=== PATIENT | male | born 1945 | race Caucasian/White ===

== ENCOUNTER 2016-10-11 15:16 | Observation (INO) | payer OTHER, BC ==
--- NOTE | 2016-10-11 15:24 | PDOC ---
History of Present Illness - General History Source: Patient Exam Limitations: No Limitations <Darinel Isaac - Last Filed: 10/11/16 19:29> - General History Source: Patient Exam Limitations: No Limitations <Levi Packer - Last Filed: 10/12/16 09:28> - General Chief Complaint: Chest Pain Stated Complaint: CHEST PAIN Time Seen by Provider: 10/11/16 15:24 - History of Present Illness Initial Comments: 10/11/16 19:29 The patient is a 71-year-old male, with a significant past medical history of asthma, HTN, HLD, diabetes, lung ca (left side lobectomy), CAD s/p 7 stents, CABG, 2 MIs, afib, and overactive bladder disease, who presents to the ED via EMS with chest tightness radiating up the throat to the teeth that began after eating lunch today. Patient states he had SOB, nausea, and belching secondary to the chest tightness. He had a few sl nitro at home without improvement, and called EMS, had recieved nitro by ems, with reslution of his sypmtmos. and was given 4 baby aspirin by EMS which helped reduce his symptoms. He states he had had similar symptoms in the past in [place] that led to a stress test and catherization. He denies any fever, chills, vomiting, diarrhea, or diaphoresis. He denies dysuria, frequency, urgency. no recent exertional cp. has dyspnea on exertion but seems baseline. Patient has a 40 year smoking history. PCP: Dr. Bronson Yung Mold Repairer: Dr. Lynn Oncologist: Dr. Cortes (Darinel Isaac) Past History <Darinel Isaac - Last Filed: 10/11/16 19:29> - Past Medical History Anemia: No Asthma: Yes Cancer: Yes (lung ca) Cardiac Disorders: Yes (afib) CVA: Yes (probable TIAs) COPD: Yes CHF: No Dementia: No Diabetes: Yes GI Disorders: No Disorders: Yes (1 kidney, kidney stones 2007) HTN: Yes Hypercholesterolemia: Yes Liver Disease: No Seizures: Yes Thyroid Disease: No - Surgical History Abdominal Surgery: No Appendectomy: No Cardiac Surgery: Yes (CABG stent x 4 2008) Cholecystectomy: No Lung Surgery: Yes (lt lower lobe) Neurologic Surgery: No Orthopedic Surgery: No - Immunization History Td Vaccination: No TDAP Vaccination: No Immunization Up to Date: Yes - Psycho/Social/Smoking Cessation Hx Anxiety: No Suicidal Ideation: No Smoking Status: Yes Smoking History: Former smoker Have you smoked in the past 12 months: No Number of Cigarettes Smoked Daily: 0 If you are a former smoker, when did you quit?: 40 YEARS AGO Hx Alcohol Use: No Drug/Substance Use Hx: No Substance Use Type: None Hx Substance Use Treatment: No <Levi Packer - Last Filed: 10/12/16 09:28> - Past Medical History Allergies/Adverse Reactions: Allergies Allergy/AdvReac Type Severity Reaction Status Date / Time sulfite Allergy Severe Difficulty Verified 03/26/16 02:07 Breathing Penicillins Allergy Intermediate Swelling Verified 03/26/16 02:07 mandarin orange Allergy Uncoded 03/26/16 02:07 Home Medications: Ambulatory Orders Fenofibrate [Fenofibrate -] 145 mg PO DAILY 10/14/13 Aspirin [ASA -] 81 mg PO DAILY #14 tab.chew 02/10/14 Multivitamins [Multivit ([facility])] 1 tab PO DAILY 11/24/14 Oxybutynin Chloride [Ditropan Xl] 10 mg PO DAILY 02/09/16 Allopurinol [Zyloprim -] 100 mg PO BID #60 tablet 02/17/16 Atorvastatin Ca [Lipitor] 40 mg PO HS #30 tablet 02/17/16 Mirtazapine [Remeron -] 30 mg PO HS #30 tablet 02/17/16 Phenytoin Na Extended [Dilantin -] 100 mg PO BID #60 capsule 02/17/16 Ramipril [Altace] 2.5 mg PO DAILY #30 capsule 02/17/16 Tamsulosin HCl [Flomax -] 0.4 mg PO DAILY #30 cap.er.24h 02/17/16 Insulin Detemir [Levemir Flextouch] 5 unit SQ BID PRN 03/26/16 Metformin HCl 500 mg PO BID 03/26/16 Metoclopramide HCl 5 mg PO DAILY PRN 03/26/16 [place]-3 Fatty Acids [Fish Oil] 1,200 mg PO DAILY 03/26/16 Pregabalin [Lyrica] 50 mg PO HS PRN 03/26/16 Sotalol HCl [Betapace -] 40 mg PO BID 03/26/16 Warfarin Na [Coumadin] 3 mg PO HS 03/26/16 Glipizide [Glucotrol -] 5 mg PO BID 10/11/16 Cardiac Specific PMH - Complaint Specific PMHX Pacemaker: No <Levi Packer - Last Filed: 10/12/16 09:28> Review of Systems - Review of Systems Able to Perform ROS?: Yes <Darinel Isaac - Last Filed: 10/11/16 19:29> <Levi Packer - Last Filed: 10/12/16 09:28> - Review of Systems Comments:: 10/11/16 19:30 CONSTITUTIONAL: No reported: Fever, Chills, Diaphoresis, Generalized Weakness, Malaise, Loss of Appetite HEENT: No reported: Rhinorrhea, Nasal Congestion, Throat Pain, Throat Swelling, Difficulty Swallowing, Mouth Swelling, Ear Pain, Eye Pain, Visual Changes CARDIOVASCULAR: + chest tightness radiating up the throat to the teeth. No reported: Syncope, Palpitations, Irregular Heart Rate, Lightheadedness, Peripheral Edema RESPIRATORY: No reported: Cough, Shortness of Breath, SOB with Exertion, Orthopnea, Wheezing , Stridor, Hemoptysis GASTROINTESTINAL: + nausea. No reported: Abdominal pain, Abdominal Distension, Vomiting, Diarrhea , Constipation, Melena, Hematochezia GENITOURINARY: No reported: Dysuria, Frequency, Urgency, Hesitancy, Flank Pain, Genital Pain MUSCULOSKELETAL: No reported: Myalgia, Arthralgia, Joint Swelling, Back pain, Neck Pain SKIN: No reported: Rash, Itching, Pallor HEMEATOLOGIC/IMMUNOLOGIC: No reported: Easy Bleeding, Easy Bruising, Lymphadenopathy, Frequent infections ENDOCRINE: No reported: Unexplained Weight Gain, Unexplained Weight Loss, Heat Intolerance , Cold Intolerance NEUROLOGIC: No reported: Headache, Focal Weakness, Paresthesias, Vertigo, Lightheadedness, Unsteady Gait, Seizure, Mental Status Changes, Incontinence PSYCHIATRIC: No reported: Anxiety, Depression (Darinel Isaac) *Physical Exam <Darinel Isaac - Last Filed: 10/11/16 19:29> <Levi Packer - Last Filed: 10/12/16 09:28> - Vital Signs Last Vital Signs Temp Pulse Resp BP Pulse Ox 97.4 F L 57 L 18 127/67 97 10/12/16 05:31 10/12/16 05:31 10/12/16 05:31 10/12/16 05:31 10/11/16 22:00 - Physical Exam Comments: 10/11/16 19:30 GENERAL: The patient is awake, alert, and fully oriented, Nontoxic - in no acute distress. HEAD: Normocephalic, atraumatic. EYES: extraocular movements intact, sclera anicteric, conjunctiva clear. ENT: Normal voice, Moist mucous membranes. NECK: Normal range of motion, supple LUNGS: Breath sounds equal, clear to auscultation bilaterally. No wheezes, no rhonchi, no rales. HEART: Regular rate and rhythm, without murmur, rub or gallop. Old CABG scar ABDOMEN: Soft, nontender, normoactive bowel sounds. No guarding, no rebound.No CVA tenderness EXTREMITIES: Normal range of motion, no edema. No clubbing or cyanosis. No cords, erythema, or tenderness. NEUROLOGICAL: No facial asymmetry, Normal speech, PSYCH: Normal mood, normal affect. SKIN: Warm, Dry, normal turgor (Darinel Isaac) Heart Score/ECG Review <Darinel Isaac - Last Filed: 10/11/16 19:29> - History History: Moderately suspicious - Electrocardiogram EKG: Non specific repolarization disturbance - Age Age: >/= 65 - Risk Factors Risk Factors Heart Score: Yes Hx Hypercholesterolemia, Yes Hx Hypertension, Yes Hx Diabetes, Yes Smoking History Based on the list above the patient has:: >/=3 risk factors or Hx atherosclerotic disease - Troponin Troponin: </= normal limit - Score Heart Score - Total: 6 <Levi Packer - Last Filed: 10/12/16 09:28> - ECG Impressions Comment:: 10/11/16 15:38 Twelve-lead EKG was performed and reviewed by me. There is normal sinus rhythm with a normal rate. rate of 61 left axis deviation rbbb twi in anterior leads and inferior leads when compared with ekg dated 03/26/2016, twi in atnerior leads are less prominent (Levi Packer) ED Treatment Course - LABORATORY CBC & Chemistry Diagram: 10/11/16 15:30 10/11/16 15:30 <Darinel Isaac - Last Filed: 10/11/16 19:29> - LABORATORY CBC & Chemistry Diagram: 10/11/16 15:30 10/11/16 15:30 <BirdieJose kilpatrickan - Last Filed: 10/12/16 09:28> - ADDITIONAL ORDERS Additional order review: 10/11/16 15:30 RBC 4.32 MCV 91.5 MCHC 33.4 RDW 14.9 MPV 9.2 D Neutrophils % 68.5 Lymphocytes % 19.6 Monocytes % 9.3 Eosinophils % 1.9 Basophils % 0.7 - RADIOLOGY Radiology Studies Ordered: Category Date Time Status CHEST X-RAY PORTABLE* [RAD] Stat Radiology 10/11/16 15:52 Completed Medical Decision Making <Darinel Isaac - Last Filed: 10/11/16 19:29> <Levi Packer - Last Filed: 10/12/16 09:28> - Medical Decision Making 10/11/16 18:[address] Azul and Dr. Hill at 18:14. 10/11/16 18:[address] Meier. (Darinel Isaac) 10/11/16 15:34 71y hx of significant hx of cad s/p cabg, seizure, hl, htn, dm, afib on coumadin , presents with chest pain - pt states he was doing well until this aftenoon, developed substernal cp that is a tightness raiating up to his throat, associated with sob, nausea, had asa, ntg with improvement of symptoms currently pain free, similar to his previous cp 6 months ago. on exam pt well appearing in no acute distress with an unremarkble exam. concern for acs/unstable angina will obtain trops cxr, labs' pt s/p asa and ntg by ems pt placed on front desk monitor will notify dr. lynn and dr. hill for observation/admission A portion of this note was documented by scribe services under my direction. I have reviewed the details of the note, within reason, and agree with the documentation with the following case summary and management plan written by me 10/11/16 18:12 trops negative will admit to observation for r/o acs case dw dr. hill agreed with tele observation awaiting call back from dr. azul (covering for dr. lynn) Case discussed in detail with admitting physician including history, physical exam and ancillary studies. Admitting physician has assumed care for the patient, will follow all pending diagnostics and will complete the evaluation and treatment. 10/11/16 18:[address] azul will see pt today. agree with management obs for chest pain risk stratigifcaiton (Levi Packer) *DC/Admit/Observation/Transfer <Darinel Isaac - Last Filed: 10/11/16 19:29> - Discharge Dispostion Admit: Yes <Levi Packer - Last Filed: 10/12/16 09:28> Diagnosis at time of Disposition: Chest pain Qualifiers: Chest pain type: unspecified Qualified Code(s): R07.9 - Chest pain, unspecified - Discharge Dispostion Condition at time of disposition: Guarded - Referrals - Patient Instructions - Attestations Scribe Attestion: 10/11/16 18:15 Documentation prepared by Darinel Isaac, acting as medical assembly for Levi Packer MD, . (Darinel Isaac)
[2016-10-11 15:36] LABS: BASOPHIL 0.7 % (0-2.0); EOSINOPHIL 1.9 % (0-4.5); MCH 30.6 pg (25.7-33.7); MCHC 33.4 g/dl (32.0-35.9); MEAN CELL VOLUME 91.5 fl (80-96); MEAN PLT VOLUME 9.2 fl (7.5-11.1); NEUTROPHILS 68.5 % (42.8-82.8); PLATELET COUNT 196 K/MM3 (134-434); RDW 14.9 % (11.9-15.9)
[2016-10-11 15:56] LABS: INR 1.96 (0.82-1.09); PROTHROMBIN TIME (PATIENT) 21.9 SEC (9.98-11.88)
[2016-10-11 16:22] LABS: ALBUMIN 3.7 g/dl (3.4-5.0); ANION GAP 11 (8-16); BILIRUBIN,TOTAL 0.3 mg/dL (0.2-1.0); CALCIUM 8.8 mg/dL (8.5-10.1); CO2 26 mmol/L (21-32); CREATININE 0.9 mg/dL (0.7-1.3); GLUCOSE,RANDOM 183 mg/dL (74-106); MAGNESIUM 1.8 mg/dL (1.8-2.4); SGOT/AST 17 U/L (15-37); SGPT/ALT 25 U/L (12-78)
[2016-10-11 16:25] LABS: ALK PHOS 59 U/L (45-117); TROPONIN I 0.02 ng/ml (0.00-0.05)
[2016-10-11 18:54] VITALS: BMI 31.1
[2016-10-11] MEDS ORDERED: PREGABALIN 50 MG CAPSULE PO PRN (20:38)
[2016-10-11] MEDS ORDERED: ATORVASTATIN CA 40 MG TABLET (FP) PO SCH (22:00)
[2016-10-11] MEDS: PHENYTOIN NA EXTENDED 100 MG CAPSULE (FP) PO SCH (22:37)
[2016-10-11] MEDS: WARFARIN NA 3 MG TABLET PO SCH (22:37)
[2016-10-11] MEDS: ALLOPURINOL 100 MG TABLET (FP) PO SCH (22:37)
[2016-10-11] MEDS: SOTALOL HCL 80 MG TABLET (FP) PO SCH (22:37)
[2016-10-11] MEDS: FENOFIBRIC ACID 135 MG CAP PO SCH (22:38)
[2016-10-11 22:43] LABS: TROPONIN I < 0.02 ng/ml (0.00-0.05)
[2016-10-12] MEDS: glipiZIDE 5 MG TABLET (FP) PO SCH ×2 (06:33→17:26)
--- NOTE | 2016-10-12 07:03 | CON.CARD ---
Consult Consult Specialty:: cardiology Reason for Consultation:: chest pain; hx multiple coronary stents - History of Present Illness Chief Complaint: A&Ox3; sitting up in bed; no chest pain or dyspnea presently. History of Present Illness: The patient is a 71-year-old white male, with a significant past medical history of s/p [place] x 2, CABG, CAD-->7 coronary stents, asthma, HTN, HLD, diabetes , lung ca (left side lobectomy), afib, and overactive bladder disease, who presents to the ED via EMS with chest tightness radiating up the throat and teeth that began after eating lunch today. Patient states he had SOB, nausea, and belching secondary to the chest tightness. He had a few sl nitro at home without improvement, and called EMS, had recieved nitro 4 baby aspirin by EMS which helped reduce his symptoms. He states he had had similar symptoms in the past in [place] that led to a stress test and catheterization. He denies any fever, chills, vomiting, diarrhea, or diaphoresis. He denies dysuria, frequency, urgency. no recent exertional cp. has dyspnea on exertion but seems baseline. He admits to doing very little exercise, though he attended cardiac rehabilitation years ago after CABG. He uses a cane for help with stability. Patient has a 40 year smoking history; quit over 30 yrs ago. PCP: Dr. Bronson Yung Business Services Representative: Dr. Lynn Oncologist: Dr. 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 Cardio/Vascular: Yes: AFIB, CAD, CHF, HTN, [place], Hyperlipdemia Pulmonary: Yes: COPD, Cancer Psych: Yes: Anxiety Musculoskeletal: Yes: Chronic low back pain Rheumatology: Yes: Gout Endocrine: Yes: Diabetes Mellitus - Past Surgical History Past Surgical History: Yes: Stent, CABG Additional Surgical History: left lobectomy (lung CA) - Alcohol/Substance Use Hx Alcohol Use: No - Smoking History Smoking history: Former smoker Have you smoked in the past 12 months: No Aproximately how many cigarettes per day: 0 If you are a former smoker, when did you quit?: 40 YEARS AGO - Social History ADL: Independent History of Recent Travel: No Home Medications - Allergies Allergies/Adverse Reactions: Allergies Allergy/AdvReac Type Severity Reaction Status Date / Time sulfite Allergy Severe Difficulty Verified 03/26/16 02:07 Breathing Penicillins Allergy Intermediate Swelling Verified 03/26/16 02:07 mandarin orange Allergy Uncoded 03/26/16 02:07 - Home Medications Home Medications: Ambulatory Orders Fenofibrate [Fenofibrate -] 145 mg PO DAILY 10/14/13 Aspirin [ASA -] 81 mg PO DAILY #14 tab.chew 02/10/14 Multivitamins [Multivit ([facility] Form[facility])] 1 tab PO DAILY 11/24/14 Oxybutynin Chloride [Ditropan Xl] 10 mg PO DAILY 02/09/16 Allopurinol [Zyloprim -] 100 mg PO BID #60 tablet 02/17/16 Atorvastatin Ca [Lipitor] 40 mg PO HS #30 tablet 02/17/16 Mirtazapine [Remeron -] 30 mg PO HS #30 tablet 02/17/16 Phenytoin Na Extended [Dilantin -] 100 mg PO BID #60 capsule 02/17/16 Ramipril [Altace] 2.5 mg PO DAILY #30 capsule 02/17/16 Tamsulosin HCl [Flomax -] 0.4 mg PO DAILY #30 cap.er.24h 02/17/16 Insulin Detemir [Levemir Flextouch] 5 unit SQ BID PRN 03/26/16 Metformin HCl 500 mg PO BID 03/26/16 Metoclopramide HCl 5 mg PO DAILY PRN 03/26/16 [place]-3 Fatty Acids [Fish Oil] 1,200 mg PO DAILY 03/26/16 Pregabalin [Lyrica] 50 mg PO HS PRN 03/26/16 Sotalol HCl [Betapace -] 40 mg PO BID 03/26/16 Warfarin Na [Coumadin] 3 mg PO HS 03/26/16 Glipizide [Glucotrol -] 5 mg PO BID 10/11/16 Review of Systems - Review of Systems Constitutional: reports: Weakness Eyes: reports: No Symptoms HENT: reports: No Symptoms Neck: reports: No Symptoms Cardiovascular: reports: Chest Pain Respiratory: reports: SOB on Exertion Gastrointestinal: reports: No Symptoms Genitourinary: reports: No Symptoms Breasts: reports: No Symptoms Reported Musculoskeletal: reports: Back Pain, Joint Pain, Muscle Weakness Integumentary: reports: No Symptoms Neurological: reports: Weakness Endocrine: reports: No Symptoms Hematology/Lymphatic: reports: No Symptoms Psychiatric: reports: No Symptoms - Risk Factors Known Risk Factors: Yes: Age, Gender, Hypercholesterolemia, Hypertension, Physical Inactivity, Prior [place] /Emb Stroke, Smoking (former), Other (lung CA) Vital Signs: Vital Signs Temperature 97.4 F L 10/12/16 05:31 Pulse Rate 57 L 10/12/16 05:31 Respiratory Rate 18 10/12/16 05:31 Blood Pressure 127/67 10/12/16 05:31 O2 Sat by Pulse Oximetry (%) 97 10/11/16 22:00 Constitutional: Yes: Well Nourished, Calm Eyes: Yes: WNL HENT: Yes: WNL Neck: Yes: WNL Gastrointestinal: Yes: WNL Renal/: No: Anuria Cardiovascular: Yes: Regular Rate and Rhythm JVD: No Carotid Bruit: No PMI: Non-Displaced Heart Sounds: Yes: S1, S2 Murmur: Yes: Systolic Murmur, Grade 1 Musculoskeletal: Yes: Muscle Weakness Extremities: Yes: WNL Edema: Yes Edema: LLE: Trace, RLE: Trace Peripheral Pulses WNL: Yes Integumentary: Yes: WNL Psychiatric: Yes: WNL - Other Data Labs, Other Data: INR, PTT INR 1.96 (0.82-1.09) H D 10/11/16 15:30 Troponin, BNP 10/11/16 21:50 Troponin I < 0.02 Troponin, BNP 10/11/16 21:50 Troponin I < 0.02 Ejection Fraction %: LVEF > or = 40 % Imaging - Results Chest X-ray: Image Reviewed (elevated Lt hemidiaphragm) Other: Image Reviewed (telemetry: no arrhythmias; NSR) Problem List - Problems (1) Chest pain Assessment/Plan: Pt describes pain as very similar to the "angina" he had in [place] that led to stress test and coronary stents. F/u TNI (1st is < 0.02) and EKGs serially; telemetry. ASA and clopidogrel; also on warfarin for AF (consider stopping [place] 3 capsules because of possible increase in bleeding; pt is already on Trilipex and atorvastatin; f/u lipids). Qualifiers: Chest pain type: unspecified Qualified Code(s): R07.9 - Chest pain, unspecified (2) ASHD (arteriosclerotic heart disease) Code(s): I25.10 - ATHSCL HEART DISEASE OF [place] CORONARY ARTERY W/O ANG PCTRS (3) Afib Assessment/Plan: On sotalol (BUN/Cr 18/0.9). on warfarin; INR 1.96. Code(s): I48.91 - UNSPECIFIED ATRIAL FIBRILLATION Qualifiers: Atrial fibrillation type: chronic Qualified Code(s): I48.2 - Chronic atrial fibrillation (4) Diabetes Assessment/Plan: Consider starting Jardience for potential cardiac benefits. Qualifiers: Diabetes mellitus type: type 2 Diabetes mellitus complication status: without complication (5) Edema Code(s): R60.9 - EDEMA, UNSPECIFIED (6) HTN (hypertension) Code(s): I10 - ESSENTIAL (PRIMARY) HYPERTENSION (7) Hx of CABG Code(s): Z95.1 - PRESENCE OF AORTOCORONARY BYPASS GRAFT (8) Hyperlipidemia Assessment/Plan: on atorvastatin, Trilipex, and [place] 3 (consider d/c of the latter because of increased bleeding tendency; could use Zetia if needed for LDL control; f/u lipids). (9) Joint pain of leg Code(s): M25.50 - PAIN IN UNSPECIFIED JOINT (10) Lung cancer Code(s): C34.90 - MALIGNANT NEOPLASM OF UNSP PART OF UNSP BRONCHUS OR LUNG
[2016-10-12 07:04] LABS: INR 1.97 (0.82-1.09)
--- NOTE | 2016-10-12 07:23 | PN ---
Progress Note, Physician Chief Complaint: Pt denies chest pain (and did not have pain while eating breakfast today). History of Present Illness: The patient is a 71-year-old white male, with a significant past medical history of s/p [place] x 2, CABG, CAD-->7 coronary stents, asthma, HTN, HLD, diabetes , lung ca (left side lobectomy), afib, and overactive bladder disease, who presents to the ED via EMS with chest tightness radiating up the throat and teeth that began after eating lunch today. Patient states he had SOB, nausea, and belching secondary to the chest tightness. He had a few sl nitro at home without improvement, and called EMS, had recieved nitro 4 baby aspirin by EMS which helped reduce his symptoms. He states he had had similar symptoms in the past in [place] that led to a stress test and catheterization. He denies any fever, chills, vomiting, diarrhea, or diaphoresis. He denies dysuria, frequency, urgency. no recent exertional cp. has dyspnea on exertion but seems baseline. He admits to doing very little exercise, though he attended cardiac rehabilitation years ago after CABG. He uses a cane for help with stability. Patient has a 40 year smoking history; quit over 30 yrs ago. PCP: Dr. Bronson Yung Credit Analyst: Dr. Lynn Oncologist: Dr. Cortes - Current Medication List Current Medications: Active Medications Allopurinol (Zyloprim -) 100 mg PO BID [facility] Last Admin: 10/11/16 22:37 Dose: 100 mg Aspirin (Asa -) 81 mg PO DAILY [facility] Atorvastatin Calcium (Lipitor -) 40 mg PO HS [facility] Last Admin: 10/11/16 22:38 Dose: 40 mg Fenofibric Acid (Trilipix -) 135 mg PO DAILY [facility] Last Admin: 10/11/16 22:38 Dose: 135 mg Glipizide (Glucotrol -) 5 mg PO BIDI [facility] Last Admin: 10/12/16 06:33 Dose: 5 mg Non-Formulary Medication ([place]-3 Fatty Acids [Fish Oil]) 1,200 mg PO DAILY [facility] Phenytoin Sodium (Dilantin -) 100 mg PO BID [facility] Last Admin: 10/11/16 22:37 Dose: 100 mg Pregabalin (Lyrica -) 50 mg PO HS PRN PRN Reason: PAIN Last Admin: 10/11/16 22:36 Dose: 50 mg Ramipril (Altace -) 2.5 mg PO DAILY [facility] Solifenacin (Vesicare -) 5 mg PO DAILY [facility] Sotalol HCl (Betapace -) 40 mg PO BID [facility] Last Admin: 10/11/16 22:37 Dose: 40 mg Tamsulosin HCl (Flomax -) 0.4 mg PO DAILY [facility] Warfarin Sodium (Coumadin -) 3 mg PO DAILY@1800 [facility] Last Admin: 10/11/16 22:37 Dose: 3 mg - Objective Vital Signs: Vital Signs Temperature 97.4 F L 10/12/16 05:31 Pulse Rate 57 L 10/12/16 05:31 Respiratory Rate 18 10/12/16 05:31 Blood Pressure 127/67 10/12/16 05:31 O2 Sat by Pulse Oximetry (%) 97 10/11/16 22:00 Constitutional: Yes: Calm Eyes: Yes: WNL HENT: Yes: WNL Neck: Yes: WNL Cardiovascular: Yes: WNL Respiratory: Yes: WNL Gastrointestinal: Yes: Soft, Abdomen, Obese ...Rectal Exam: Yes: Deferred Genitourinary: No: Anuria Breast(s): Yes: WNL Musculoskeletal: Yes: Muscle Weakness Extremities: Yes: Cool Edema: Yes Peripheral Pulses WNL: Yes Integumentary: Yes: Other (left LE scar from CABG vein graft harvest) Neurological: Yes: WNL Psychiatric: Yes: WNL Labs: INR, PTT INR 1.96 (0.82-1.09) H D 10/11/16 15:30 Abnormal Lab Results 10/11/16 10/11/16 10/12/16 15:30 15:30 06:00 INR 1.96 H D 1.97 H Random Glucose 183 H D Triglycerides Total LDL Cholesterol 10/12/16 06:00 INR Random Glucose Triglycerides 176 H Total LDL Cholesterol 104 H - ....Imaging Chest X-ray: Image Reviewed (no acute pathology) EKG: Image Reviewed (NSR; 1st degreee AVB; RBBB) Problem List - Problems (1) Chest pain Assessment/Plan: NO further chest pain (atypical presentation). TNI < 0.02 x 3. ASA and clopidogrel; also on warfarin for AF (consider stopping [place] 3 capsules because of possible increase in bleeding; pt is already on Trilipex and atorvastatin; f/u lipids). Increased atorvastatin from 40 to 80 mg daily (LDL cholesterol 104 mg/dL). Triglycerides 176 (on trilipix); f/u after increase in atorvastatin. Qualifiers: Chest pain type: unspecified Qualified Code(s): R07.9 - Chest pain, unspecified (2) ASHD (arteriosclerotic heart disease) Code(s): I25.10 - ATHSCL HEART DISEASE OF [place] CORONARY ARTERY W/O ANG PCTRS (3) Afib Assessment/Plan: On sotalol (BUN/Cr 18/0.9). on warfarin; INR 1.96. Code(s): I48.91 - UNSPECIFIED ATRIAL FIBRILLATION Qualifiers: Atrial fibrillation type: chronic Qualified Code(s): I48.2 - Chronic atrial fibrillation (4) Diabetes Assessment/Plan: Consider starting Jardience for potential cardiac benefits. Qualifiers: Diabetes mellitus type: type 2 Diabetes mellitus complication status: without complication (5) Edema Code(s): R60.9 - EDEMA, UNSPECIFIED (6) HTN (hypertension) Code(s): I10 - ESSENTIAL (PRIMARY) HYPERTENSION (7) Hx of CABG Code(s): Z95.1 - PRESENCE OF AORTOCORONARY BYPASS GRAFT (8) Hyperlipidemia Assessment/Plan: on atorvastatin, Trilipex, and [place] 3 (consider d/c of the latter because of increased bleeding tendency; could use Zetia if needed for LDL control; f/u lipids). Atorvastatin dose increased. (9) Joint pain of leg Code(s): M25.50 - PAIN IN UNSPECIFIED JOINT (10) Lung cancer Assessment/Plan: f/u with pulmonary, oncology. Code(s): C34.90 - MALIGNANT NEOPLASM OF UNSP PART OF UNSP BRONCHUS OR LUNG
[2016-10-12 08:18] LABS: TROPONIN I < 0.02 ng/ml (0.00-0.05)
[2016-10-12] MEDS ORDERED: PT OWN MED DRAWER 7, Y5N ONE (08:52)
[2016-10-12 08:56] LABS: CHOLESTEROL 172 mg/dL (50-200); LDL CHOLESTEROL (ONLY SJRH) 104 mg/dL (5-100); THYROID STIMULATING HORMONE 3.16 uIU/ml (0.358-3.74)
[2016-10-12] MEDS: SOTALOL HCL 80 MG TABLET (FP) PO SCH ×2 (09:10→21:28)
[2016-10-12] MEDS: FENOFIBRIC ACID 135 MG CAP PO SCH (09:11)
[2016-10-12] MEDS: RAMIPRIL 2.5 MG CAPSULE (FP) PO SCH (09:11)
[2016-10-12] MEDS: SOLIFENACIN SUCCINATE 5 MG TAB (FP) PO SCH (09:11)
[2016-10-12] MEDS: TAMSULOSIN HCL 0.4 MG CAP.ER.24H (FP) PO SCH (09:12)
[2016-10-12] MEDS: ALLOPURINOL 100 MG TABLET (FP) PO SCH ×2 (09:12→21:23)
[2016-10-12] MEDS: ASPIRIN 81 MG CHEWABLE TABLETS PO SCH (09:12)
[2016-10-12] MEDS: PHENYTOIN NA EXTENDED 100 MG CAPSULE (FP) PO SCH ×2 (09:12→21:23)
[2016-10-12] MEDS ORDERED: OMEGA PO SCH (10:00)
[2016-10-12] MEDS ORDERED: FATTY ACIDS PO SCH (10:00)
[2016-10-12] MEDS: ATORVASTATIN CA 80 MG TABLET (FP) PO SCH (14:18)
[2016-10-12] MEDS: WARFARIN NA 3 MG TABLET PO SCH (17:26)
--- NOTE | 2016-10-12 19:08 | HP ---
Admitting History and Physical - Past Medical History HIDE TRIMMER: Yes: Seizure Cardiovascular: Yes: AFIB, CAD, CHF, HTN, PR, Hyperlipdemia Pulmonary: Yes: COPD, Cancer Psych: Yes: Anxiety Musculoskeletal: Yes: Chronic low back pain Rheumatology: Yes: Gout Endocrine: Yes: Diabetes Mellitus - Past Surgical History Past Surgical History: Yes: Stent, CABG - Advance Directives Advance Directives: Yes: Health Care Proxy - Smoking History Smoking history: Former smoker Have you smoked in the past 12 months: No Aproximately how many cigarettes per day: 0 If you are a former smoker, when did you quit?: 40 YEARS AGO - Alcohol/Substance Use Hx Alcohol Use: No - Social History ADL: Independent History of Recent Travel: No Home Medications - Allergies Allergies/Adverse Reactions: Allergies Allergy/AdvReac Type Severity Reaction Status Date / Time sulfite Allergy Severe Difficulty Verified 03/26/16 02:07 Breathing Penicillins Allergy Intermediate Swelling Verified 03/26/16 02:07 mandarin orange Allergy Uncoded 03/26/16 02:07 - Home Medications Home Medications: Ambulatory Orders Fenofibrate [Fenofibrate -] 145 mg PO DAILY 10/14/13 Aspirin [ASA -] 81 mg PO DAILY #14 tab.chew 02/10/14 Multivitamins [Multivit ([facility] Form[facility])] 1 tab PO DAILY 11/24/14 Oxybutynin Chloride [Ditropan Xl] 10 mg PO DAILY 02/09/16 Allopurinol [Zyloprim -] 100 mg PO BID #60 tablet 02/17/16 Atorvastatin Ca [Lipitor] 40 mg PO HS #30 tablet 02/17/16 Mirtazapine [Remeron -] 30 mg PO HS #30 tablet 02/17/16 Phenytoin Na Extended [Dilantin -] 100 mg PO BID #60 capsule 02/17/16 Ramipril [Altace] 2.5 mg PO DAILY #30 capsule 02/17/16 Tamsulosin HCl [Flomax -] 0.4 mg PO DAILY #30 cap.er.24h 02/17/16 Insulin Detemir [Levemir Flextouch] 5 unit SQ BID PRN 03/26/16 Metformin HCl 500 mg PO BID 03/26/16 Metoclopramide HCl 5 mg PO DAILY PRN 03/26/16 [place]-3 Fatty Acids [Fish Oil] 1,200 mg PO DAILY 03/26/16 Pregabalin [Lyrica] 50 mg PO HS PRN 03/26/16 Sotalol HCl [Betapace -] 40 mg PO BID 03/26/16 Warfarin Na [Coumadin -] 3 mg PO HS 03/26/16 Glipizide [Glucotrol -] 5 mg PO BID 10/11/16 Physical Examination Vital Signs: Vital Signs Temperature 98.8 F 10/12/16 17:00 Pulse Rate 56 L 10/12/16 17:00 Respiratory Rate 20 10/12/16 17:00 Blood Pressure 105/60 10/12/16 17:00 O2 Sat by Pulse Oximetry (%) 98 10/12/16 09:00 Problem List - Problems (1) ASHD (arteriosclerotic heart disease) Code(s): I25.10 - ATHSCL HEART DISEASE OF [place] CORONARY ARTERY W/O ANG PCTRS (2) Afib Code(s): I48.91 - UNSPECIFIED ATRIAL FIBRILLATION Qualifiers: Atrial fibrillation type: chronic Qualified Code(s): I48.2 - Chronic atrial fibrillation (3) Chest pain Qualifiers: Chest pain type: unspecified Qualified Code(s): R07.9 - Chest pain, unspecified (4) Diabetes Qualifiers: Diabetes mellitus type: type 2 Diabetes mellitus complication status: without complication (5) H/O: lung cancer Code(s): Z85.118 - PERSONAL HISTORY OF MALIGNANT NEOPLASM OF [place] AND LUNG (6) HTN (hypertension) Code(s): I10 - ESSENTIAL (PRIMARY) HYPERTENSION (7) History of coronary artery bypass graft x 1 Code(s): Z95.1 - PRESENCE OF AORTOCORONARY BYPASS GRAFT
--- NOTE | 2016-10-12 22:28 | EKG ---
Test Reason : Blood Pressure : / mmHG Vent. Rate : 060 BPM Atrial Rate : 060 BPM P-R Int : 226 ms QRS Dur : 160 ms QT Int : 472 ms P-R-T Axes : 051 -76 -19 degrees QTc Int : 472 ms SINUS RHYTHM WITH 1ST DEGREE A-V BLOCK WITH PREMATURE SUPRAVENTRICULAR COMPLEXES LEFT AXIS DEVIATION RIGHT BUNDLE BRANCH BLOCK ABNORMAL ECG WHEN COMPARED WITH ECG OF 11-OCT-2016 15:22, PREMATURE SUPRAVENTRICULAR COMPLEXES ARE NOW PRESENT Confirmed by RICKY NICHOLS MD ([id number]) on 10/12/2016 10:27:53 PM Referred By: Deanna GOOD Confirmed By:RICKY NICHOLS MD
--- NOTE | 2016-10-12 22:31 | EKG ---
Test Reason : Blood Pressure : / mmHG Vent. Rate : 061 BPM Atrial Rate : 061 BPM P-R Int : 222 ms QRS Dur : 156 ms QT Int : 472 ms P-R-T Axes : 045 -83 -24 degrees QTc Int : 475 ms SINUS RHYTHM WITH 1ST DEGREE A-V BLOCK POSSIBLE LEFT ATRIAL ENLARGEMENT LEFT AXIS DEVIATION RIGHT BUNDLE BRANCH BLOCK POSSIBLE LATERAL INFARCT , AGE UNDETERMINED ABNORMAL ECG WHEN COMPARED WITH ECG OF 26-MAR-2016 02:07, SINUS RHYTHM HAS REPLACED ATRIAL FIBRILLATION VENT. RATE HAS DECREASED BY 53 BPM T WAVE INVERSION LESS EVIDENT IN ANTERIOR LEADS Confirmed by RICKY NICHOLS MD ([id number]) on 10/12/2016 10:31:48 PM Referred By: Confirmed By:RICKY NICHOLS MD
[2016-10-13] MEDS: glipiZIDE 5 MG TABLET (FP) PO SCH (06:13)
[2016-10-13] MEDS: RAMIPRIL 2.5 MG CAPSULE (FP) PO SCH (10:06)
[2016-10-13] MEDS: ASPIRIN 81 MG CHEWABLE TABLETS PO SCH (10:07)
[2016-10-13] MEDS: PHENYTOIN NA EXTENDED 100 MG CAPSULE (FP) PO SCH (10:07)
[2016-10-13] MEDS: TAMSULOSIN HCL 0.4 MG CAP.ER.24H (FP) PO SCH (10:07)
[2016-10-13] MEDS: ATORVASTATIN CA 80 MG TABLET (FP) PO SCH (10:08)
[2016-10-13] MEDS: FENOFIBRIC ACID 135 MG CAP PO SCH (10:08)
[2016-10-13] MEDS: SOLIFENACIN SUCCINATE 5 MG TAB (FP) PO SCH (10:09)
[2016-10-13] MEDS: ALLOPURINOL 100 MG TABLET (FP) PO SCH (10:09)
[2016-10-13] MEDS: SOTALOL HCL 80 MG TABLET (FP) PO SCH (10:09)
[2016-10-13 11:55] VITALS: BP 111/59; PULSE 62; TEMP 98.1
== END 2016-10-13 11:34 | disposition home or self-care (01) ==
LOC: JER 15:16 → JERBED 18:11 → J4S 19:25
PROVIDERS: ADMIT Internal Medicine; ATTEND Internal Medicine
DX: R07.89 Other chest pain (principal); E78.5 Hyperlipidemia, unspecified; C34.90 Malignant neoplasm of unspecified part of unspecified bronchus or lung; J45.909 Unspecified asthma, uncomplicated; J44.9 Chronic obstructive pulmonary disease, unspecified; E11.9 Type 2 diabetes mellitus without complications; I25.10 Atherosclerotic heart disease of native coronary artery without angina pectoris; I25.2 Old myocardial infarction; M54.5 Low back pain; I48.91 Unspecified atrial fibrillation; I11.0 Hypertensive heart disease with heart failure; I50.9 Heart failure, unspecified; N32.81 Overactive bladder; M10.9 Gout, unspecified; F41.8 Other specified anxiety disorders; Z87.891 Personal history of nicotine dependence; Z95.1 Presence of aortocoronary bypass graft; Z95.5 Presence of coronary angioplasty implant and graft
CPT/HCPCS: 36415; 71010-TC; 80053; 80061; 82550; 83721; 83735; 84443; 84484; 85025; 85610; 93005; 93010; 93306-TC; 99285-25; G0378

== ENCOUNTER 2018-05-04 16:17 | Inpatient (IN) | payer OTHER, BC ==
[2018-05-04] MEDS ORDERED: ALBUTEROL SO4 2.5/IPRATROPIUM 0.5 INH SOL 3 ML VIAL.NEB. NEB ONE ×4 (16:55→17:28)
--- NOTE | 2018-05-04 17:01 | PDOC ---
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 <Amara Lomeli - Last Filed: 05/04/18 18:37> - General History Source: Patient, Family Exam Limitations: No Limitations - History of Present Illness Initial Comments: 05/04/18 17:40 Naun Elizabeth is a 72-year-old male, with a past medical history of asthma, COPD on nocturnal O2, ALAYNA, HTN, HLD, diabetes, lung ca (left side lobectomy - in remission for the last 4 years; last Pet Scan was 3 weeks ago and was clear) , CAD s/p 7 stents, CABG, 2 MIs, Afib on coumadin, and overactive bladder disease, who presents to the ED with shortness of breath that began today. Patient states that he was experiencing sore throat/low grade fevers/ nonproductive cough/ear pain for the past 2 days. Patient went to see his PCP today for these symptoms and was prescribed Levaquin, Robitussin, and albuterol. The patients symptoms worsened today when he developed gurgling in his chest, stating that he felt his lungs filling up with fluid and he could not breathe. This episode lasted a few minutes before resolving on its own. He reports experiencing similar symptoms in the past. The patient reported to the ED for further evaluation. Patient had a recent nuclear stress test that showed: A small to moderate sized fixed apical defect consistent with previous infarction with minimal saundra-infarct ischemia. No evidence of transient ischemic dilatation. LVEF: 63%. The patient denies any chills, nausea, vomiting, diarrhea, or abdominal pain. He denies any chest pain or palpitations. He denies any lower extremity swelling, numbness or weakness. He denies any urinary symptoms. Allergies: Sulfite, Penicillins, mandarin orange. Social History: Former smoker (Quit 40 years ago). Surgical History: Left side lobectomy, cardiac stents x7. CABG. PCP: Dr. Bronson Yung <Mandy Burks - Last Filed: 05/04/18 20:39> - General Chief Complaint: Shortness of Breath Stated Complaint: Shortness of Breath Time Seen by Provider: 05/04/18 16:40 Past History <Amara Lomeli - Last Filed: 05/04/18 18:37> - Past Medical History Anemia: No Asthma: Yes Cancer: Yes (lung ca) Cardiac Disorders: Yes (afib) CVA: Yes (probable TIAs) COPD: Yes CHF: No Dementia: No Diabetes: Yes GI Disorders: No Disorders: Yes (1 kidney, kidney stones 2007) HTN: Yes Hypercholesterolemia: Yes Liver Disease: No Seizures: Yes Thyroid Disease: No - Surgical History Abdominal Surgery: No Appendectomy: No Cardiac Surgery: Yes (CABG stent x 4 2008) Cholecystectomy: No Lung Surgery: Yes (lt lower lobe) Neurologic Surgery: No Orthopedic Surgery: No - Immunization History Td Vaccination: No TDAP Vaccination: No Immunization Up to Date: Yes - Suicide/Smoking/Psychosocial Hx Smoking Status: Yes Smoking History: Former smoker Have you smoked in the past 12 months: No Number of Cigarettes Smoked Daily: 0 If you are a former smoker, when did you quit?: 40 YEARS AGO Information on smoking cessation initiated: No Hx Alcohol Use: No Drug/Substance Use Hx: No Substance Use Type: None Hx Substance Use Treatment: No <Mandy Burks - Last Filed: 05/04/18 20:39> - Past Medical History Allergies/Adverse Reactions: Allergies Allergy/AdvReac Type Severity Reaction Status Date / Time sulfite Allergy Severe Difficulty Verified 05/04/18 16:24 Breathing Penicillins Allergy Intermediate Swelling Verified 05/04/18 16:24 mandarin orange Allergy Uncoded 05/04/18 16:24 Home Medications: Ambulatory Orders Fenofibrate [Fenofibrate -] 145 mg PO DAILY 10/14/13 Multivitamins [Multivit ([facility] Formul[facility])] 1 tab PO DAILY 11/24/14 Oxybutynin Chloride [Ditropan Xl] 10 mg PO DAILY 02/09/16 Allopurinol [Zyloprim -] 100 mg PO BID #60 tablet 02/17/16 Atorvastatin Ca [Lipitor] 40 mg PO HS #30 tablet 02/17/16 Mirtazapine [Remeron -] 30 mg PO HS #30 tablet 02/17/16 Phenytoin Na Extended [Dilantin -] 100 mg PO BID #60 capsule 02/17/16 Ramipril [Altace] 2.5 mg PO DAILY #30 capsule 02/17/16 Tamsulosin HCl [Flomax -] 0.4 mg PO DAILY #30 cap.er.24h 02/17/16 Insulin Detemir [Levemir Flextouch] 5 unit SQ BID PRN 03/26/16 Metoclopramide HCl 5 mg PO DAILY PRN 03/26/16 [place]-3 Fatty Acids [Fish Oil] 1,200 mg PO DAILY 03/26/16 Sotalol HCl [Betapace -] 40 mg PO BID 03/26/16 Warfarin Na [Coumadin -] 3 mg PO HS 03/26/16 Review of Systems - Review of Systems Able to Perform ROS?: Yes Comments:: 05/04/18 18:39 GENERAL/CONSTITUTIONAL: +subjective fever or chills. No weakness. no sweats. HEAD, EYES, EARS, NOSE AND THROAT: No change in vision or hearing. No discharge. No difficulty swallowing. + ear ache, sore throat and congestion. CARDIOVASCULAR: No chest pain or palpitations, syncope or edema. RESPIRATORY: +SOB, + cough, No wheezing, or hemoptysis. GASTROINTESTINAL No nausea/vomiting. No diarrhea or constipation. No bloody stools. GENITOURINARY: No hematuria, dysuria, frequency, urgency or other changes. MUSCULOSKELETAL: No joint or muscle swelling or pain. No neck or back pain. SKIN: No rash or changes in skin color or lesions. NEUROLOGIC: No headache, vertigo, loss of consciousness, or change in strength/ sensation. No gait instability. HEMATOLOGIC/LYMPHATIC: No anemia, easy bruising/bleeding, or history of blood clots. ALLERGIC/IMMUNOLOGIC: No allergies All other systems reviewed and negative, or as documented in HPI. <Mandy Burks - Last Filed: 05/04/18 20:39> *Physical Exam - Vital Signs Last Vital Signs Temp Pulse Resp BP Pulse Ox 97.5 F L 75 18 169/100 98 05/04/18 16:31 05/04/18 16:31 05/04/18 16:31 05/04/18 16:31 05/04/18 16:31 <Amara Lomeli - Last Filed: 05/04/18 18:37> - Vital Signs Last Vital Signs Temp Pulse Resp BP Pulse Ox 97.5 F L 75 18 169/100 98 05/04/18 16:31 05/04/18 16:31 05/04/18 16:31 05/04/18 16:31 05/04/18 16:31 - Physical Exam Comments: 05/04/18 18:40 General: Well appearing, awake and alert, NAD. HEENT: NCAT, PERRL, EOMI, clear conjunctiva, anicteric, moist mucus membranes, clear oropharynx, no oral lesions.. Neck: neck supple, FROM. no JVD. Resp: (+)Decreased breath sounds left side (s/p lobectomy). CTAB, no respiratory distress. CVS: irregularly irregular, no murmurs, 2+ peripheral pulses throughout, no peripheral edema Chest: anterior sternotomy scar. Abdomen: soft, NTND, no peritoneal signs. Back: nontender, normal inspection and ROM MSK: no edema, LOREDO x4, ROM intact. No clubbing or cyanosis. normal bulk and tone. no calf tenderness. Neuro: alert, oriented appropriately; no focal neurologic deficits Skin: warm and well perfused, cap refill <2 sec, normal color <Mandy Burks - Last Filed: 05/04/18 20:39> Heart Score/ECG Review - ECG Impressions Normal ECG: No Comment:: 05/04/18 18:48 EKG with normal rate. RBBB Afib, nonspecific T wave abnormalities, unchanged from prior <Mandy Burks - Last Filed: 05/04/18 20:39> ED Treatment Course - LABORATORY CBC & Chemistry Diagram: 05/04/18 14:25 05/04/18 14:25 - ADDITIONAL ORDERS Additional order review: Laboratory Results 05/04/18 05/04/18 14:25 14:25 PT with INR 35.10 H INR 2.94 H PTT (Actin FS) 51.4 H Sodium 137 Potassium 4.4 Chloride 107 Carbon Dioxide 24 Anion Gap 6 L BUN 19 H Creatinine 1.0 Creat Clearance w eGFR > 60 Random Glucose 113 H Calcium 9.4 Magnesium 1.5 L Total Bilirubin 0.4 AST 23 ALT 38 Alkaline Phosphatase 45 Troponin I < 0.02 B-Natriuretic Peptide 1273.4 H Total Protein 6.7 Albumin 3.4 05/04/18 14:25 RBC 3.88 L MCV 95.3 MCHC 33.2 RDW 14.3 MPV 9.3 Neutrophils % 74.1 Lymphocytes % 13.2 D Monocytes % 10.3 H Eosinophils % 1.9 Basophils % 0.5 - Medications Given in the ED: ED Medications Discontinued Medications Generic Name Dose Route Start Last Admin Trade Name Salvatoreq PRN Reason Stop Dose Admin Albuterol/Ipratropium 1 amp 05/04/18 16:55 05/04/18 17:29 Duoneb - NEB 05/04/18 16:56 1 amp ONCE ONE Administration Albuterol/Ipratropium 1 amp 05/04/18 16:55 05/04/18 17:29 Duoneb - NEB 05/04/18 16:56 1 amp ONCE ONE Administration Albuterol/Ipratropium 1 amp 05/04/18 16:55 05/04/18 17:29 Duoneb - NEB 05/04/18 16:56 1 amp ONCE ONE Administration <Amara Lomeli - Last Filed: 05/04/18 18:37> - LABORATORY CBC & Chemistry Diagram: 05/04/18 14:25 05/04/18 14:25 - RADIOLOGY Radiology Studies Ordered: Category Date Time Status CHEST PA & LAT [RAD] Stat Radiology 05/04/18 16:54 Ordered <Mandy Burks - Last Filed: 05/04/18 20:39> Medical Decision Making - Medical Decision Making 05/04/18 16:59 Naun Elizabeth 72 YOM with a significant past medical history of asthma, COPD on noctural O2, ALAYNA, HTN, HLD, diabetes, lung ca (left side lobectomy), CAD s/p 7 stents, CABG, 2 MIs, Afib on coumadin, and overactive bladder disease, who presents to the ED with shortness of breath worsening today, where he felt he was drowning. a/w sore throat and aches, low grade fever x 2-3 days. no cp, syncope. DDx. atypical CP, ACS, angina. CHF, pleurisy, pneumonia. URI, viral syndrome. COPD exacerbation. less likely PE, on coumadin already has atypical features of CP with high risk features and prior extensive cardiac history as documented vitals wnl, normal sats on RA at 98%. no respiratory distress. labs and lytes wnl, no anemia. INR therapeutic. BNP elevated 1200, no prior to compare to, prior echo reviewed CXR_ clear, no edema or infiltrate. trop negative, reassuring, needs serial Trop/EKG EKG with normal rate. RBBB Afib, nonspecific T wave abnormalities, unchanged from prior prior notes reviewed, last stress test in 01/2018 with EF 63%, apical infarct c/ w prior ischemic disease. given duonebs for comfort. with relief, no respiratory distress or hypoxia here. held off on steroids with h/o diabetes, and no wheezing, duonebs for comfort. will cover with abx for presumed PNA given sx and COPD history. ceftriaxone/ doxycycline given chronic lung disease and respiratory sx. dispo: admit for medical management, respiratory sx, presumed pna, serial trops/ EKG and tele monitoring admit to Dr Neri/Daivda nair pt aware of impression and plan, agreeable. 05/04/18 20:37 <Mandy Burks - Last Filed: 05/04/18 20:39> *DC/Admit/Observation/Transfer <Amara Lomeli - Last Filed: 05/04/18 18:37> - Discharge Dispostion Decision to Admit order: Yes Decision to Admit order Date/Time: 05/04/18 18:48 Decision to Admit Order Category Date Time Status Decision to Admit to Hospital Routine Admission 05/04/18 17:45 Active <Mandy Burks - Last Filed: 05/04/18 20:39> Diagnosis at time of Disposition: Shortness of breath, Paroxysmal a-fib, S/P CABG (coronary artery bypass graft) , H/O: lung cancer - Discharge Dispostion Condition at time of disposition: Good
[2018-05-04 17:40] LABS: BASO % 0.5 % (0-2.0); EOS % 1.9 % (0-4.5); HEMOGLOBIN 12.3 GM/dL (11.7-16.9); LYMPH % 13.2 % (8-40); MCH 31.6 pg (25.7-33.7); MCHC 33.2 g/dl (32.0-35.9); MEAN CELL VOLUME 95.3 fl (80-96); MEAN PLT VOLUME 9.3 fl (7.5-11.1); MONO % 10.3 % (3.8-10.2); NEUT % 74.1 % (42.8-82.8); PLATELET COUNT 182 K/MM3 (134-434); RBC 3.88 M/mm3 (4.00-5.60); RDW 14.3 % (11.9-15.9)
[2018-05-04 17:48] LABS: INR 2.94 (0.83-1.09); PROTHROMBIN TIME (PATIENT) 35.1 SEC (9.7-13.0)
[2018-05-04 17:50] LABS: ACTIVATED PTT 51.4 SECONDS (25.2-36.5)
[2018-05-04 18:04] LABS: ALBUMIN 3.4 g/dl (3.4-5.0); ALK PHOS 45 U/L (45-117); ANION GAP 6 MMOL/L (8-16); BILIRUBIN,TOTAL 0.4 mg/dL (0.2-1); BLOOD UREA NITROGEN 19 mg/dL (7-18); CALCIUM 9.4 mg/dL (8.5-10.1); CHLORIDE 107 mmol/L (98-107); CO2 24 mmol/L (21-32); GLUCOSE,RANDOM 113 mg/dL (74-106); MAGNESIUM 1.5 mg/dL (1.8-2.4); N-TERMINAL BNP 1273.4 pg/ml (5-125); POTASSIUM 4.4 mmol/L (3.5-5.1); SGOT/AST 23 U/L (15-37); SGPT/ALT 38 U/L (13-61); SODIUM 137 mmol/L (136-145); TOT PROT 6.7 g/dl (6.4-8.2)
[2018-05-04] MEDS ORDERED: CEFTRIAXONE 1,000 MG in DEXTROSE 5%-WATER - 50 ML IVPB ONE (18:44)
[2018-05-04] MEDS ORDERED: DOXYCYCLINE INJECTION 100 MG in DEXTROSE 5%-WATER - 100 ML IVPB ONE (18:45)
[2018-05-04] MEDS ORDERED: CEFTRIAXONE 1 GM/50 ML BAG ONE (18:54)
[2018-05-04] MEDS ORDERED: INSULIN DETEMIR 5 UNIT SQ PRN (22:37)
[2018-05-04] MEDS ORDERED: WARFARIN NA 3 MG TABLET PO ONE (22:41)
[2018-05-04] MEDS: MIRTAZAPINE 30 MG TABLET (FP) PO SCH (23:03)
[2018-05-04] MEDS: PHENYTOIN NA EXTENDED 100 MG CAPSULE (FP) PO SCH (23:03)
[2018-05-05] MEDS ORDERED: ALBUTEROL SO4 2.5/IPRATROPIUM 0.5 INH SOL 3 ML VIAL.NEB. NEB PRN (03:13)
[2018-05-05 06:50] LABS: BASO % 0.5 % (0-2.0); EOS % 2.2 % (0-4.5); HEMATOCRIT 38.3 % (35.4-49); HEMOGLOBIN 12.5 GM/dL (11.7-16.9); LYMPH % 17.2 % (8-40); MCH 31.2 pg (25.7-33.7); MCHC 32.6 g/dl (32.0-35.9); MEAN PLT VOLUME 9.5 fl (7.5-11.1); MONO % 12.5 % (3.8-10.2); NEUT % 67.6 % (42.8-82.8); PLATELET COUNT 160 K/MM3 (134-434); RBC 3.99 M/mm3 (4.00-5.60); RDW 14.2 % (11.9-15.9); WHITE BLOOD COUNT 5.4 K/mm3 (4.0-10.0)
[2018-05-05] MEDS: INSULIN SLIDING SCALE (NOVOLOG) 1 VIAL SQ SCH ×4 (06:52→21:30)
[2018-05-05] MEDS ORDERED: INSULIN (NOVOLOG) ASPART 100 UNITS/ML 10ML VIAL ONE (06:55)
[2018-05-05 06:56] LABS: INR 2.59 (0.83-1.09); PROTHROMBIN TIME (PATIENT) 30.8 SEC (9.7-13.0)
[2018-05-05 07:54] LABS: ALBUMIN 3.6 g/dl (3.4-5.0); ALK PHOS 48 U/L (45-117); ANION GAP 9 MMOL/L (8-16); BILIRUBIN,TOTAL 0.4 mg/dL (0.2-1); BLOOD UREA NITROGEN 18 mg/dL (7-18); CALCIUM 9.3 mg/dL (8.5-10.1); CHLORIDE 105 mmol/L (98-107); CO2 24 mmol/L (21-32); CREATININE 1.1 mg/dL (0.55-1.3); GLUCOSE,RANDOM 148 mg/dL (74-106); POTASSIUM 4.2 mmol/L (3.5-5.1); SGOT/AST 25 U/L (15-37); SGPT/ALT 36 U/L (13-61); SODIUM 138 mmol/L (136-145)
--- NOTE | 2018-05-05 08:41 | CON.CARD ---
Cardiology Consult (text) - Consultation Consultation Note: Full Consult Dictated IMP: Probable viral URI Chronic AF on Sotalol CAD Mild acute on chronic diastolic CHF REC: 1. Markedly elevated BNP seems out of proportion to clinical exam- early volume overload probably triggered by infection. Will start IV Lasix and follow renal fxn 2. Further Rx URI as per PMD 3, INR 2-3, would monitor INR daily while on Abx
[2018-05-05] MEDS ORDERED: PT OWN MED DRAWER 7, Y5N ONE ×2 (08:43→21:19)
[2018-05-05] MEDS: TAMSULOSIN HCL 0.4 MG CAP PO SCH (08:48)
[2018-05-05] MEDS: PHENYTOIN NA EXTENDED 100 MG CAPSULE (FP) PO SCH ×2 (09:01→21:20)
[2018-05-05] MEDS: RAMIPRIL 2.5 MG CAPSULE (FP) PO SCH (09:01)
[2018-05-05] MEDS: SOLIFENACIN SUCCINATE 5 MG TAB (FP) PO SCH (09:01)
[2018-05-05] MEDS: FENOFIBRIC ACID 135 MG CAP PO SCH (09:01)
[2018-05-05] MEDS: SOTALOL HCL 80 MG TABLET (FP) PO SCH ×2 (09:02→21:23)
[2018-05-05] MEDS: MULTIVITAMINS (DAILY MVI) TABLET (FP) PO SCH (09:02)
[2018-05-05] MEDS ORDERED: OMEGA-3 ACID ETHYL ESTERS (FATTY-ACIDS) 1 GM CAPSULE (FP) PO SCH (10:00)
[2018-05-05] MEDS ORDERED: AZITHROMYCIN IVPB 250 MG in DEXTROSE 5%-WATER - 250 ML IVPB SCH (10:00)
[2018-05-05] MEDS ORDERED: CEFTRIAXONE 1 GM in DEXTROSE 5%-WATER - 100 ML IVPB SCH (10:00)
[2018-05-05] MEDS: ASPIRIN 81 MG CHEWABLE TABLETS PO SCH (10:06)
--- NOTE | 2018-05-05 10:19 | CONS ---
DATE OF CONSULTATION: 05/05/2018 REQUESTING PHYSICIAN: Judy Moreau MD REASON FOR CONSULTATION: Elevated BNP. HISTORY OF PRESENT ILLNESS: The patient is a 72-year-old male with coronary artery disease, hypertension, permanent atrial fibrillation, BPH, seizure disorder, hyperlipidemia, COPD, who was admitted for several days of nasal congestion, dry cough, and shortness of breath associated with cough. The patient had visited his PMD yesterday morning and was prescribed antibiotics and oral steroids, but as the day progressed, did not feel better with progressive cough, chest tightening, and shortness of breath prompting him to come to the emergency department. In the ER, he was afebrile with a clear chest x-ray. He has nasal congestion, hoarse voice, dry cough, all consistent with a probable viral URI. He was seen by the primary medical team and started on antibiotics. I was asked to see him for an elevated BNP. He denies PND, orthopnea, lower extremity edema. Denies chest pain. He had a Lexiscan nuclear stress test here earlier this year, which showed no significant ischemia, and an overall normal LVEF. He was seen and examined on telemetry this morning in no acute distress. PAST MEDICAL HISTORY: As above. Also includes diabetes, lung cancer status post left lobectomy currently in remission, coronary artery disease status post CA, coronary artery bypass surgery, and multiple PCIs. ALLERGIES: He is allergic to SULFITES and PENICILLIN. MEDICATIONS: His active medications include albuterol/Atrovent nebulizer, atorvastatin 40 mg at bedtime, doxycycline, fenofibrate, insulin sliding scale, mirtazapine 30 mg p.o. at bedtime, multivitamin, Levemir, omega 3 fatty acids, phenytoin 100 mg p.o. b.i.d., Ramipril 2.5 mg p.o. daily, sotalol 40 mg p.o. b.i.d., tamsulosin 0.4 mg at bedtime, and warfarin 3 mg p.o. at bedtime. FAMILY HISTORY: Noncontributory to this presentation. SOCIAL HISTORY: He is a former smoker. PHYSICAL EXAMINATION: Vital signs: He is afebrile, 98.5, pulse 72, blood pressure 120/60, O2 saturation is 95 on room air. Neck: There is mild elevation of the jugular venous pressure while the patient is sitting at 90 degrees. Chest: Showed scattered rhonchi. No wheezing, no rales. Abdomen: Soft, nontender. Extremities: No edema. DIAGNOSTIC DATA: His ECG showed atrial fibrillation at 84 beats per minute with a chronic right bundle branch block. White count 5.4, hematocrit 38.3, platelets 160. INR 2.6. Sodium 138, potassium 4.2, creatinine 1.1, GFR is greater than 60. LFTs normal. CK troponin negative x2 sets. BNP 1273. Chest x-ray showed mild increased interstitial markings, but no focal infiltrates. IMPRESSION: 1. Probable viral upper respiratory infection. 2. Chronic atrial fibrillation on sotalol. 3. Coronary artery disease, history of coronary bypass, multiple previous percutaneous coronary interventions, normal left ventricular ejection fraction. 4. Mild acute on chronic diastolic congestive heart failure likely triggered by infection. RECOMMENDATIONS: 1. The markedly elevated BNP does seem out of proportion to the clinical exam - He is likely an early volume overload triggered by infection. Will start low-dose IV Lasix and follow renal function - Will probably only require 1-2 days of gentle diuresis. 2. Further treatment of upper respiratory infection as per primary medical team. 3. INR goal is 2-3, needs daily INR monitoring while on IV antibiotics as this may interfere with Coumadin metabolism. Thank you for the consultation. Will follow. CESAR MASCORRO M.D. [id number]
--- NOTE | 2018-05-05 10:46 | EKG ---
Test Reason : Blood Pressure : / mmHG Vent. Rate : 084 BPM Atrial Rate : 049 BPM P-R Int : 000 ms QRS Dur : 148 ms QT Int : 418 ms P-R-T Axes : 000 267 -13 degrees QTc Int : 493 ms POOR DATA QUALITY, INTERPRETATION MAY BE ADVERSELY AFFECTED ATRIAL FIBRILLATION RIGHT BUNDLE BRANCH BLOCK ABNORMAL ECG WHEN COMPARED WITH ECG OF 12-OCT-2016 09:27, ATRIAL FIBRILLATION HAS REPLACED SINUS RHYTHM Confirmed by CHRISTIAN DANIELSON, HANK ([id number]) on 05/05/2018 10:46:20 AM Referred By: Confirmed By:HANK GONZALES MD
[2018-05-05] MEDS: DOXYCYCLINE INJECTION 100 MG in DEXTROSE 5%-WATER - 100 ML IVPB SCH ×2 (10:54→21:20)
[2018-05-05] MEDS: FUROSEMIDE 40 MG/4 ML INJECTABLE VIAL IVPUSH SCH (14:56)
--- NOTE | 2018-05-05 15:28 | HP ---
Admitting History and Physical - Past Medical History ACTUARIAL INTERN: Yes: Seizure Cardiovascular: Yes: AFIB, CAD, CHF, HTN, [place], Hyperlipdemia Pulmonary: Yes: COPD, Cancer Psych: Yes: Anxiety Musculoskeletal: Yes: Chronic low back pain Rheumatology: Yes: Gout Endocrine: Yes: Diabetes Mellitus - Past Surgical History Past Surgical History: Yes: Stent, CABG - Smoking History Smoking history: Former smoker Have you smoked in the past 12 months: No Aproximately how many cigarettes per day: 0 If you are a former smoker, when did you quit?: 40 YEARS AGO - Alcohol/Substance Use Hx Alcohol Use: No - Social History ADL: Independent History of Recent Travel: No Home Medications - Allergies Allergies/Adverse Reactions: Allergies Allergy/AdvReac Type Severity Reaction Status Date / Time sulfite Allergy Severe Difficulty Verified 05/04/18 16:24 Breathing Penicillins Allergy Intermediate Swelling Verified 05/04/18 16:24 mandarin orange Allergy Uncoded 05/04/18 16:24 - Home Medications Home Medications: Ambulatory Orders Fenofibrate [Fenofibrate -] 145 mg PO DAILY 10/14/13 Multivitamins [Multivit ([facility] Formul[facility])] 1 tab PO DAILY 11/24/14 Oxybutynin Chloride [Ditropan Xl] 10 mg PO DAILY 02/09/16 Allopurinol [Zyloprim -] 100 mg PO BID #60 tablet 02/17/16 Atorvastatin Ca [Lipitor] 40 mg PO HS #30 tablet 02/17/16 Mirtazapine [Remeron -] 30 mg PO HS #30 tablet 02/17/16 Phenytoin Na Extended [Dilantin -] 100 mg PO BID #60 capsule 02/17/16 Ramipril [Altace] 2.5 mg PO DAILY #30 capsule 02/17/16 Tamsulosin HCl [Flomax -] 0.4 mg PO DAILY #30 cap.er.24h 02/17/16 Insulin Detemir [Levemir Flextouch] 5 unit SQ BID PRN 03/26/16 Metoclopramide HCl 5 mg PO DAILY PRN 03/26/16 [place]-3 Fatty Acids [Fish Oil] 1,200 mg PO DAILY 03/26/16 Sotalol HCl [Betapace -] 40 mg PO BID 03/26/16 Warfarin Na [Coumadin -] 3 mg PO HS 03/26/16 Physical Examination Vital Signs: Vital Signs Temperature 98.1 F 05/05/18 13:48 Pulse Rate 84 05/05/18 13:48 Respiratory Rate 18 05/05/18 13:48 Blood Pressure 119/55 L 05/05/18 13:48 O2 Sat by Pulse Oximetry (%) 94 L 05/05/18 11:59 Labs: CBC, BMP 05/05/18 06:00 05/05/18 06:00
[2018-05-05] MEDS: WARFARIN NA 3 MG TABLET PO SCH (17:15)
[2018-05-05] MEDS: MIRTAZAPINE 30 MG TABLET (FP) PO SCH (21:20)
[2018-05-05] MEDS: guaiFENesin 200 MG/10 ML 10 ML UNIT-DOSE CUPS PO PRN (21:21)
[2018-05-05] MEDS ORDERED: ATORVASTATIN CA 80 MG TABLET (FP) PO SCH (22:00)
[2018-05-06 06:41] LABS: ANION GAP 8 MMOL/L (8-16); BLOOD UREA NITROGEN 21 mg/dL (7-18); CALCIUM 8.9 mg/dL (8.5-10.1); CHLORIDE 106 mmol/L (98-107); CO2 24 mmol/L (21-32); CREATININE 0.8 mg/dL (0.55-1.3); GLUCOSE,RANDOM 172 mg/dL (74-106); MAGNESIUM 1.7 mg/dL (1.8-2.4); SODIUM 139 mmol/L (136-145)
[2018-05-06] MEDS: FUROSEMIDE 40 MG/4 ML INJECTABLE VIAL IVPUSH SCH (06:47)
[2018-05-06 06:48] LABS: INR 2.73 (0.83-1.09); PROTHROMBIN TIME (PATIENT) 32.6 SEC (9.7-13.0)
[2018-05-06] MEDS: INSULIN SLIDING SCALE (NOVOLOG) 1 VIAL SQ SCH ×4 (06:48→21:24)
[2018-05-06] MEDS ORDERED: PT OWN MED DRAWER 7, Y5N ONE ×2 (08:43→21:15)
--- NOTE | 2018-05-06 08:45 | PN ---
Progress Note, Physician Chief Complaint: TELE: rate controlled AF Cardiac enzymes negative Still with dry cough, nasal congestion. - Current Medication List Current Medications: Active Medications Albuterol/Ipratropium (Duoneb -) 1 amp NEB Q6H PRN PRN Reason: SHORTNESS OF BREATH Aspirin (Asa -) 81 mg PO DAILY [facility] Last Admin: 05/05/18 10:06 Dose: 81 mg Atorvastatin Calcium (Lipitor -) 40 mg PO HS [facility] Last Admin: 05/05/18 21:21 Dose: 40 mg Fenofibric Acid (Trilipix -) 135 mg PO DAILY [facility] Last Admin: 05/05/18 09:01 Dose: 135 mg Furosemide (Lasix -) 40 mg PO DAILY [facility] Guaifenesin (Robitussin -) 5 ml PO Q8H PRN PRN Reason: COUGH Last Admin: 05/05/18 21:21 Dose: 5 ml Doxycycline Hyclate 100 mg/ (Dextrose) 100 mls @ 100 mls/hr IVPB BID [facility] Last Admin: 05/05/18 21:20 Dose: 100 mls/hr Insulin Aspart (Novolog Vial Sliding Scale -) 1 vial SQ ACHS [facility]; Protocol Last Admin: 05/06/18 06:48 Dose: 2 units Mirtazapine (Remeron -) 30 mg PO HS [facility] Last Admin: 05/05/18 21:20 Dose: 30 mg Multivitamins/Minerals/Vitamin C (Tab-A-Vit -) 1 tab PO DAILY [facility] Last Admin: 05/05/18 09:02 Dose: 1 tab Non-Formulary Medication (Insulin Detemir [Levemir Flextouch]) 5 unit SQ BID PRN PRN Reason: SLIDING SCALE >200 Phenytoin Sodium (Dilantin -) 100 mg PO BID [facility] Last Admin: 05/05/18 21:20 Dose: 100 mg Ramipril (Altace -) 2.5 mg PO DAILY [facility] Last Admin: 05/05/18 09:01 Dose: 2.5 mg Solifenacin (Vesicare -) 5 mg PO DAILY [facility] Last Admin: 05/05/18 09:01 Dose: 5 mg Sotalol HCl (Betapace -) 40 mg PO BID [facility] Last Admin: 05/05/18 21:23 Dose: 40 mg Tamsulosin HCl (Flomax -) 0.4 mg PO 0830 [facility] Last Admin: 05/05/18 08:48 Dose: 0.4 mg Warfarin Sodium (Coumadin -) 3 mg PO 1800 [facility] Last Admin: 05/05/18 17:15 Dose: 3 mg - Objective Vital Signs: Vital Signs Temperature 98.0 F 05/06/18 05:37 Pulse Rate 73 05/06/18 05:37 Respiratory Rate 20 05/06/18 05:37 Blood Pressure 120/64 05/06/18 05:37 O2 Sat by Pulse Oximetry (%) 100 05/05/18 21:00 Constitutional: Yes: No Distress Cardiovascular: Yes: Pulse Irregular Respiratory: Yes: Rhonchi, Other (no rales.) Gastrointestinal: Yes: Soft Edema: No Neurological: Yes: Alert, Oriented ...Motor Strength: WNL Labs: CBC, BMP 05/05/18 06:00 05/06/18 06:00 INR, PTT INR 2.73 (0.83-1.09) H 05/06/18 06:00 - ....Imaging EKG: Image Reviewed Assessment/Plan IMP: Probable viral URI Chronic AF on Sotalol CAD Mild acute on chronic diastolic CHF- improved REC: 1. D/C IV Lasix. Switch to Lasix 40 mg PO daily 2. Rx Viral URI as per PMD 3. Daily INR while on abx. Can d/c tele
[2018-05-06] MEDS: TAMSULOSIN HCL 0.4 MG CAP PO SCH (08:48)
[2018-05-06] MEDS: PHENYTOIN NA EXTENDED 100 MG CAPSULE (FP) PO SCH ×2 (09:00→21:26)
[2018-05-06] MEDS: SOLIFENACIN SUCCINATE 5 MG TAB (FP) PO SCH (09:00)
[2018-05-06] MEDS: FENOFIBRIC ACID 135 MG CAP PO SCH (09:00)
[2018-05-06] MEDS: MULTIVITAMINS (DAILY MVI) TABLET (FP) PO SCH (09:00)
[2018-05-06] MEDS: RAMIPRIL 2.5 MG CAPSULE (FP) PO SCH (09:00)
[2018-05-06] MEDS: ASPIRIN 81 MG CHEWABLE TABLETS PO SCH (09:00)
[2018-05-06] MEDS: FUROSEMIDE 40 MG TABLET (FP) PO SCH (09:01)
[2018-05-06] MEDS: SOTALOL HCL 80 MG TABLET (FP) PO SCH ×2 (09:01→21:25)
[2018-05-06] MEDS: DOXYCYCLINE INJECTION 100 MG in DEXTROSE 5%-WATER - 100 ML IVPB SCH ×2 (09:01→21:27)
[2018-05-06] MEDS: guaiFENesin 200 MG/10 ML 10 ML UNIT-DOSE CUPS PO PRN ×2 (11:50→20:10)
[2018-05-06] MEDS: WARFARIN NA 3 MG TABLET PO SCH (17:07)
[2018-05-06] MEDS ORDERED: ACETAMINOPHEN 325 MG TABLET (FP) PO PRN (20:01)
[2018-05-06] MEDS ORDERED: INSULIN (NOVOLOG) ASPART 100 UNITS/ML 10ML VIAL ONE (21:14)
[2018-05-06] MEDS: MIRTAZAPINE 30 MG TABLET (FP) PO SCH (21:25)
[2018-05-06] MEDS: ATORVASTATIN CA 40 MG TABLET (FP) PO SCH (21:25)
--- NOTE | 2018-05-06 22:47 | PN ---
Progress Note, Physician History of Present Illness: Pt spiked temp to > 100 - Current Medication List Current Medications: Active Medications Acetaminophen (Tylenol -) 650 mg PO Q6H PRN PRN Reason: FEVER Albuterol/Ipratropium (Duoneb -) 1 amp NEB Q6H PRN PRN Reason: SHORTNESS OF BREATH Aspirin (Asa -) 81 mg PO DAILY [facility] Last Admin: 05/06/18 09:00 Dose: 81 mg Atorvastatin Calcium (Lipitor -) 40 mg PO HS [facility] Last Admin: 05/06/18 21:25 Dose: 40 mg Fenofibric Acid (Trilipix -) 135 mg PO DAILY [facility] Last Admin: 05/06/18 09:00 Dose: 135 mg Furosemide (Lasix -) 40 mg PO DAILY [facility] Last Admin: 05/06/18 09:01 Dose: 40 mg Guaifenesin (Robitussin -) 5 ml PO Q8H PRN PRN Reason: COUGH Last Admin: 05/06/18 20:10 Dose: 5 ml Doxycycline Hyclate 100 mg/ (Dextrose) 100 mls @ 100 mls/hr IVPB BID [facility] Last Admin: 05/06/18 21:27 Dose: 100 mls/hr Insulin Aspart (Novolog Vial Sliding Scale -) 1 vial SQ ACHS [facility]; Protocol Last Admin: 05/06/18 21:24 Dose: 2 units Mirtazapine (Remeron -) 30 mg PO HS [facility] Last Admin: 05/06/18 21:25 Dose: 30 mg Multivitamins/Minerals/Vitamin C (Tab-A-Vit -) 1 tab PO DAILY [facility] Last Admin: 05/06/18 09:00 Dose: 1 tab Non-Formulary Medication (Insulin Detemir [Levemir Flextouch]) 5 unit SQ BID PRN PRN Reason: SLIDING SCALE >200 Phenytoin Sodium (Dilantin -) 100 mg PO BID [facility] Last Admin: 05/06/18 21:26 Dose: 100 mg Ramipril (Altace -) 2.5 mg PO DAILY [facility] Last Admin: 05/06/18 09:00 Dose: 2.5 mg Solifenacin (Vesicare -) 5 mg PO DAILY [facility] Last Admin: 05/06/18 09:00 Dose: 5 mg Sotalol HCl (Betapace -) 40 mg PO BID [facility] Last Admin: 05/06/18 21:25 Dose: 40 mg Tamsulosin HCl (Flomax -) 0.4 mg PO 0830 [facility] Last Admin: 05/06/18 08:48 Dose: 0.4 mg Warfarin Sodium (Coumadin -) 3 mg PO 1800 [facility] Last Admin: 05/06/18 17:07 Dose: 3 mg - Objective Vital Signs: Vital Signs Temperature 100.4 F H 05/06/18 17:49 Pulse Rate 76 05/06/18 17:49 Respiratory Rate 18 05/06/18 17:49 Blood Pressure 133/83 05/06/18 17:49 O2 Sat by Pulse Oximetry (%) 97 05/06/18 10:42 Cardiovascular: Yes: WNL, Regular Rate and Rhythm Respiratory: Yes: Rhonchi Gastrointestinal: Yes: WNL, Normal Bowel Sounds, Soft, Abdomen, Obese Labs: CBC, BMP 05/05/18 06:00 05/06/18 06:00 INR, PTT INR 2.73 (0.83-1.09) H 05/06/18 06:00 Problem List - Problems (1) Dyspnea Assessment/Plan: Due to asthmatic bronchitis vs fluid overload Will send BC x 2 for temp spike Cont IV doxycycline/nebulizer IV lasix changed to PO Pulmonary consult Code(s): R06.00 - DYSPNEA, UNSPECIFIED (2) Paroxysmal a-fib Assessment/Plan: Cont coumadin Follow PT/INR Rate controlled Code(s): I48.0 - PAROXYSMAL ATRIAL FIBRILLATION (3) Diabetes Assessment/Plan: Cont sliding scale w/ coverage and levemir Code(s): E11.9 - TYPE 2 DIABETES MELLITUS WITHOUT COMPLICATIONS Qualifiers: Diabetes mellitus type: type 2 Diabetes mellitus complication status: without complication (4) HTN (hypertension) Assessment/Plan: BP stable Cont asa/lasix/ramipril Code(s): I10 - ESSENTIAL (PRIMARY) HYPERTENSION (5) Hyperlipidemia Assessment/Plan: Cont fenofibrate/lipitor Code(s): E78.5 - HYPERLIPIDEMIA, UNSPECIFIED (6) H/O: lung cancer Assessment/Plan: Pt had PET scan few weeks ago wc he said was negative Code(s): Z85.118 - PERSONAL HISTORY OF MALIGNANT NEOPLASM OF BRONCHUS AND LUNG (7) ASHD (arteriosclerotic heart disease) Code(s): I25.10 - ATHSCL HEART DISEASE OF [place] CORONARY ARTERY W/O ANG PCTRS (8) S/P CABG (coronary artery bypass graft) Code(s): Z95.1 - PRESENCE OF AORTOCORONARY BYPASS GRAFT (9) Seizure Assessment/Plan: Cont dilantin Code(s): R56.9 - UNSPECIFIED CONVULSIONS
[2018-05-07] MEDS: INSULIN SLIDING SCALE (NOVOLOG) 1 VIAL SQ SCH ×4 (06:36→22:18)
[2018-05-07 07:10] LABS: BASO % 0.6 % (0-2.0); EOS % 2.9 % (0-4.5); HEMATOCRIT 38.1 % (35.4-49); HEMOGLOBIN 12.4 GM/dL (11.7-16.9); INR 2.74 (0.83-1.09); LYMPH % 14.5 % (8-40); MCH 30.9 pg (25.7-33.7); MCHC 32.5 g/dl (32.0-35.9); MEAN PLT VOLUME 9.6 fl (7.5-11.1); MONO % 16.3 % (3.8-10.2); NEUT % 65.7 % (42.8-82.8); PLATELET COUNT 144 K/MM3 (134-434); PROTHROMBIN TIME (PATIENT) 32.7 SEC (9.7-13.0); RBC 4.01 M/mm3 (4.00-5.60); RDW 14.1 % (11.9-15.9); WHITE BLOOD COUNT 5.2 K/mm3 (4.0-10.0)
[2018-05-07 07:56] LABS: ALBUMIN 3.5 g/dl (3.4-5.0); ALK PHOS 50 U/L (45-117); ANION GAP 8 MMOL/L (8-16); BILIRUBIN,TOTAL 0.4 mg/dL (0.2-1); BLOOD UREA NITROGEN 26 mg/dL (7-18); CALCIUM 9.1 mg/dL (8.5-10.1); CHLORIDE 103 mmol/L (98-107); CO2 27 mmol/L (21-32); CREATININE 0.9 mg/dL (0.55-1.3); GLUCOSE,RANDOM 167 mg/dL (74-106); POTASSIUM 4.2 mmol/L (3.5-5.1); SGOT/AST 30 U/L (15-37); SGPT/ALT 39 U/L (13-61); SODIUM 138 mmol/L (136-145)
--- NOTE | 2018-05-07 08:43 | PN ---
Progress Note, Physician Chief Complaint: no distress Nasal congestion and dry cough. History of Present Illness: low grade fever, cultured. - Current Medication List Current Medications: Active Medications Acetaminophen (Tylenol -) 650 mg PO Q6H PRN PRN Reason: FEVER Albuterol/Ipratropium (Duoneb -) 1 amp NEB Q6H PRN PRN Reason: SHORTNESS OF BREATH Aspirin (Asa -) 81 mg PO DAILY [facility] Last Admin: 05/06/18 09:00 Dose: 81 mg Atorvastatin Calcium (Lipitor -) 40 mg PO HS [facility] Last Admin: 05/06/18 21:25 Dose: 40 mg Fenofibric Acid (Trilipix -) 135 mg PO DAILY [facility] Last Admin: 05/06/18 09:00 Dose: 135 mg Furosemide (Lasix -) 40 mg PO DAILY [facility] Last Admin: 05/06/18 09:01 Dose: 40 mg Guaifenesin (Robitussin -) 5 ml PO Q8H PRN PRN Reason: COUGH Last Admin: 05/06/18 20:10 Dose: 5 ml Doxycycline Hyclate 100 mg/ (Dextrose) 100 mls @ 100 mls/hr IVPB BID [facility] Last Admin: 05/06/18 21:27 Dose: 100 mls/hr Insulin Aspart (Novolog Vial Sliding Scale -) 1 vial SQ ACHS [facility]; Protocol Last Admin: 05/07/18 06:36 Dose: 2 units Mirtazapine (Remeron -) 30 mg PO HS [facility] Last Admin: 05/06/18 21:25 Dose: 30 mg Multivitamins/Minerals/Vitamin C (Tab-A-Vit -) 1 tab PO DAILY [facility] Last Admin: 05/06/18 09:00 Dose: 1 tab Non-Formulary Medication (Insulin Detemir [Levemir Flextouch]) 5 unit SQ BID PRN PRN Reason: SLIDING SCALE >200 Phenytoin Sodium (Dilantin -) 100 mg PO BID [facility] Last Admin: 05/06/18 21:26 Dose: 100 mg Ramipril (Altace -) 2.5 mg PO DAILY [facility] Last Admin: 05/06/18 09:00 Dose: 2.5 mg Solifenacin (Vesicare -) 5 mg PO DAILY [facility] Last Admin: 05/06/18 09:00 Dose: 5 mg Sotalol HCl (Betapace -) 40 mg PO BID [facility] Last Admin: 05/06/18 21:25 Dose: 40 mg Tamsulosin HCl (Flomax -) 0.4 mg PO 0830 [facility] Last Admin: 05/06/18 08:48 Dose: 0.4 mg Warfarin Sodium (Coumadin -) 3 mg PO 1800 [facility] Last Admin: 05/06/18 17:07 Dose: 3 mg - Objective Vital Signs: Vital Signs Temperature 98 F 05/07/18 05:47 Pulse Rate 73 05/07/18 05:47 Respiratory Rate 18 05/07/18 05:47 Blood Pressure 119/74 05/07/18 05:47 O2 Sat by Pulse Oximetry (%) 95 05/06/18 21:00 Constitutional: Yes: No Distress, Calm Cardiovascular: Yes: Regular Rate and Rhythm Respiratory: Yes: Other (scattered rhonchi. No rales.) Gastrointestinal: Yes: Soft Edema: No Neurological: Yes: Alert, Oriented Labs: CBC, BMP 05/07/18 05:55 05/07/18 05:55 INR, PTT INR 2.74 (0.83-1.09) H 05/07/18 05:55 Microbiology Laboratory Tests 05/06/18 05/06/18 05/07/18 06:00 06:00 05:55 WBC 5.2 Hgb 12.4 Plt Count 144 INR 2.73 H Sodium 139 Potassium 4.0 Creatinine 0.8 Creatine Kinase 54 Troponin I < 0.02 05/07/18 05/07/18 05:55 05:55 WBC Hgb Plt Count INR 2.74 H Sodium 138 Potassium 4.2 Creatinine 0.9 Creatine Kinase Troponin I Assessment/Plan IMP: Probable viral URI, bronchitis Chronic AF on Sotalol CAD Mild acute on chronic diastolic CHF- improved REC: 1. PO Lasix. 2. Rx Viral URI as per PMD 3. Daily INR while on abx, remains therapeutic.
[2018-05-07] MEDS ORDERED: PT OWN MED DRAWER 7, Y5N ONE ×2 (08:53→22:12)
[2018-05-07 09:19] LABS: URINE APPEARANCE CLEAR; URINE BILIRUBIN NEGATIVE (<2.0 mg/dL); URINE COLOR YELLOW; URINE GLUCOSE (UA) 1+ (NEGATIVE); URINE KETONE NEGATIVE (NEGATIVE); URINE LEUK ESTERASE NEGATIVE (NEGATIVE); URINE NITRITE NEGATIVE (NEGATIVE); URINE PROTEIN NEGATIVE (NEGATIVE); URINE UROBILINOGEN NEGATIVE mg/dL (0.2-1.0)
[2018-05-07] MEDS: ASPIRIN 81 MG CHEWABLE TABLETS PO SCH (09:23)
[2018-05-07] MEDS: PHENYTOIN NA EXTENDED 100 MG CAPSULE (FP) PO SCH ×2 (09:23→22:16)
[2018-05-07] MEDS: SOTALOL HCL 80 MG TABLET (FP) PO SCH ×2 (09:23→22:16)
[2018-05-07] MEDS: RAMIPRIL 2.5 MG CAPSULE (FP) PO SCH (09:24)
[2018-05-07] MEDS: FUROSEMIDE 40 MG TABLET (FP) PO SCH (09:24)
[2018-05-07] MEDS: SOLIFENACIN SUCCINATE 5 MG TAB (FP) PO SCH (09:25)
[2018-05-07] MEDS: MULTIVITAMINS (DAILY MVI) TABLET (FP) PO SCH (09:25)
[2018-05-07] MEDS: TAMSULOSIN HCL 0.4 MG CAP PO SCH (09:25)
[2018-05-07] MEDS: FENOFIBRIC ACID 135 MG CAP PO SCH (09:25)
[2018-05-07] MEDS: DOXYCYCLINE INJECTION 100 MG in DEXTROSE 5%-WATER - 100 ML IVPB SCH ×2 (09:26→22:17)
--- NOTE | 2018-05-07 13:12 | PN ---
Progress Note (short form) - Note Progress Note: PULMONARY CONSULTATION DICTATED 05/07/18 IMP DYSPNEA/CONGESTION COPD EXACERBATION URI AFIB H/O LUNG CA S/P LLL LOBECTOMY ASHD S/P CABG DM HTN ELEVATED BNP H/O SEIZURES PLAN IV STEROIDS ABX O2 INHALED BRONCHODILATORS CHEST CT ANTI-TUSSIVES AC DR ARAGON Problem List - Problems (1) COPD exacerbation Code(s): J44.1 - CHRONIC OBSTRUCTIVE PULMONARY DISEASE W (ACUTE) EXACERBATION (2) Dyspnea Code(s): R06.00 - DYSPNEA, UNSPECIFIED (3) Paroxysmal a-fib Code(s): I48.0 - PAROXYSMAL ATRIAL FIBRILLATION (4) S/P CABG (coronary artery bypass graft) Code(s): Z95.1 - PRESENCE OF AORTOCORONARY BYPASS GRAFT (5) Seizure Code(s): R56.9 - UNSPECIFIED CONVULSIONS (6) Shortness of breath Code(s): R06.02 - SHORTNESS OF BREATH (7) Afib Code(s): I48.91 - UNSPECIFIED ATRIAL FIBRILLATION Qualifiers: Atrial fibrillation type: chronic Qualified Code(s): I48.2 - Chronic atrial fibrillation (8) Diabetes Code(s): E11.9 - TYPE 2 DIABETES MELLITUS WITHOUT COMPLICATIONS Qualifiers: Diabetes mellitus type: type 2 Diabetes mellitus complication status: without complication (9) HTN (hypertension) Code(s): I10 - ESSENTIAL (PRIMARY) HYPERTENSION
--- NOTE | 2018-05-07 14:21 | CON.ID ---
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 Cardio/Vascular: Yes: AFIB, CAD, CHF, HTN, [place], Hyperlipdemia Pulmonary: Yes: COPD, Cancer Psych: Yes: Anxiety Musculoskeletal: Yes: Chronic low back pain Rheumatology: Yes: Gout Endocrine: Yes: Diabetes Mellitus - Past Surgical History Past Surgical History: Yes: Stent, CABG - Alcohol/Substance Use Hx Alcohol Use: No - Smoking History Smoking history: Former smoker Have you smoked in the past 12 months: No Aproximately how many cigarettes per day: 0 If you are a former smoker, when did you quit?: 40 YEARS AGO - Social History ADL: Independent History of Recent Travel: No Home Medications - Allergies Allergies/Adverse Reactions: Allergies Allergy/AdvReac Type Severity Reaction Status Date / Time sulfite Allergy Severe Difficulty Verified 05/04/18 16:24 Breathing Penicillins Allergy Intermediate Swelling Verified 05/04/18 16:24 mandarin orange Allergy Uncoded 05/04/18 16:24 - Home Medications Home Medications: Ambulatory Orders Fenofibrate [Fenofibrate -] 145 mg PO DAILY 10/14/13 Multivitamins [Multivit ([facility] Formulary)] 1 tab PO DAILY 11/24/14 Oxybutynin Chloride [Ditropan Xl] 10 mg PO DAILY 02/09/16 Allopurinol [Zyloprim -] 100 mg PO BID #60 tablet 02/17/16 Atorvastatin Ca [Lipitor] 40 mg PO HS #30 tablet 02/17/16 Mirtazapine [Remeron -] 30 mg PO HS #30 tablet 02/17/16 Phenytoin Na Extended [Dilantin -] 100 mg PO BID #60 capsule 02/17/16 Ramipril [Altace] 2.5 mg PO DAILY #30 capsule 02/17/16 Tamsulosin HCl [Flomax -] 0.4 mg PO DAILY #30 cap.er.24h 02/17/16 Insulin Detemir [Levemir Flextouch] 5 unit SQ BID PRN 03/26/16 Metoclopramide HCl 5 mg PO DAILY PRN 03/26/16 [place]-3 Fatty Acids [Fish Oil] 1,200 mg PO DAILY 03/26/16 Sotalol HCl [Betapace -] 40 mg PO BID 03/26/16 Warfarin Na [Coumadin -] 3 mg PO HS 03/26/16 Physical Exam Vital Signs: Vital Signs Temperature 98 F 05/07/18 05:47 Pulse Rate 73 05/07/18 05:47 Respiratory Rate 18 05/07/18 09:12 Blood Pressure 119/74 05/07/18 05:47 O2 Sat by Pulse Oximetry (%) 95 05/07/18 09:12 Labs: CBC, BMP 05/07/18 05:55 05/07/18 05:55
--- NOTE | 2018-05-07 14:22 | CONS ---
DATE OF CONSULTATION: 05/07/2018 REFERRING PHYSICIAN: Judy Neri MD HISTORY OF PRESENT ILLNESS: The patient is a 72-year-old white male known to me from previous hospitalization with a past medical history of COPD, history of lung CA , status post left lower lobe lobectomy in 2013, stage 3A, status post chemotherapy, but administered by Dr. Cortes, atrial fibrillation, BPH, ASHD, status post CABG, hypertension, seizure disorder, hyperlipidemia, diabetes, admitted to [facility] with complaint of 3 to 4 day history of increasing shortness of breath, dry cough, nasal congestion, and wheezing. Patient went to his PMD the day prior to admission and was prescribed steroids and antibiotics without any significant improvement, at which time he presented to the emergency room. He states prior to coming to the ER he has had progressive cough and chest tightness. In the ER, he had a chest x-ray performed, which did not reveal any infiltrates. He was prescribed antibiotics. He was also evaluated by Dr. Lynn secondary to elevated BNP. Patient has a history of smoking, quit greater than 30 to 40 years ago. He has no history of occupational exposure to chemical fumes. He states that he uses inhaler once in a while, but it makes him sometimes gag and it makes him more short of breath. He denies any recent travel. There is no history of DVT or PE in the past. He denies any fevers or chills. Denies any hemoptysis. PAST MEDICAL HISTORY: Includes ASHD, status post CABG, atrial fibrillation, BPH , seizure disorder, COPD, hyperlipidemia, hypertension, lung CA, status post left lower lobe lobectomy. REVIEW OF SYSTEMS: Positive for shortness of breath. Positive for cough. Positive for nasal congestion. Positive for chest tightness. No chest pain. No fever. No chills. No hemoptysis. No abdominal pain. CURRENT MEDICATIONS: Include insulin, Flomax, Tylenol, Altace, doxycycline, Coumadin, Remeron, Duo-Neb, sotalol, Betapace, Robitussin, Trileptal, Vesicare, Lipitor, Dilantin, Lasix, Tab-A-Ariel, and aspirin. PHYSICAL EXAMINATION: General: The patient is a well-developed, well-nourished male, awake, alert, in no acute distress. Vital signs: His maximum temperature was 100.4, currently 98, blood pressure 119/74, respiratory rate 18, O2 saturation 95% on room air. HEENT: Head is normocephalic atraumatic. Neck: Supple. Heart: Irregularly irregular, S1, S2. Chest: scattered bilateral wheezes. Abdomen: Soft. Bowel sounds positive. Extremities: No cyanosis or edema. LABORATORIES: WBC is 5.2, hemoglobin 12.4, hematocrit 38.1, platelet count of 144,000. INR is 2.74. BUN is 26, creatinine 0.9. BNP is 1273. Chest x-ray reveals no acute infiltrates, no effusions. IMPRESSION: 1. Cough and chest congestion likely secondary to mild chronic obstructive pulmonary disease exacerbation secondary to upper respiratory infection. 2. Atherosclerotic heart disease status post coronary artery bypass grafting. 3. History of lung cancer status post left lower lobe lobectomy. 4. Atrial fibrillation. 5. Elevated brain natriuretic peptide test. 6. Hyperlipidemia. PLAN: short course of IV steroids, inhaled bronchodilators, antibiotics, obtain CT scan of the chest, sputum for culture and sensitivity, antitussives. MARY ARAGON M.D. [id number] MTDD
[2018-05-07] MEDS: methylPREDNISolone NA SUCC 40 MG/1 ML VIAL IVPUSH SCH ×2 (16:39→22:17)
[2018-05-07] MEDS: WARFARIN NA 3 MG TABLET PO SCH (17:39)
[2018-05-07] MEDS: ATORVASTATIN CA 40 MG TABLET (FP) PO SCH (22:16)
[2018-05-07] MEDS: MIRTAZAPINE 30 MG TABLET (FP) PO SCH (22:16)
[2018-05-07] MEDS: guaiFENesin 200 MG/10 ML 10 ML UNIT-DOSE CUPS PO PRN (22:18)
--- NOTE | 2018-05-07 22:33 | PN ---
Progress Note, Physician - Current Medication List Current Medications: Active Medications Acetaminophen (Tylenol -) 650 mg PO Q6H PRN PRN Reason: FEVER Albuterol/Ipratropium (Duoneb -) 1 amp NEB Q6H PRN PRN Reason: SHORTNESS OF BREATH Aspirin (Asa -) 81 mg PO DAILY [facility] Last Admin: 05/07/18 09:23 Dose: 81 mg Atorvastatin Calcium (Lipitor -) 40 mg PO HS [facility] Last Admin: 05/07/18 22:16 Dose: 40 mg Fenofibric Acid (Trilipix -) 135 mg PO DAILY [facility] Last Admin: 05/07/18 09:25 Dose: 135 mg Furosemide (Lasix -) 40 mg PO DAILY [facility] Last Admin: 05/07/18 09:24 Dose: 40 mg Guaifenesin (Robitussin -) 5 ml PO Q8H PRN PRN Reason: COUGH Last Admin: 05/07/18 22:18 Dose: 5 ml Doxycycline Hyclate 100 mg/ (Dextrose) 100 mls @ 100 mls/hr IVPB BID [facility] Last Admin: 05/07/18 22:17 Dose: 100 mls/hr Insulin Aspart (Novolog Vial Sliding Scale -) 1 vial SQ ACHS [facility]; Protocol Last Admin: 05/07/18 22:18 Dose: 4 units Methylprednisolone Sodium Succinate (Solu-Medrol -) 40 mg IVPUSH Q6H-IV [facility] Last Admin: 05/07/18 22:17 Dose: 40 mg Mirtazapine (Remeron -) 30 mg PO HS [facility] Last Admin: 05/07/18 22:16 Dose: 30 mg Multivitamins/Minerals/Vitamin C (Tab-A-Vit -) 1 tab PO DAILY [facility] Last Admin: 05/07/18 09:25 Dose: 1 tab Non-Formulary Medication (Insulin Detemir [Levemir Flextouch]) 5 unit SQ BID PRN PRN Reason: SLIDING SCALE >200 Phenytoin Sodium (Dilantin -) 100 mg PO BID [facility] Last Admin: 05/07/18 22:16 Dose: 100 mg Ramipril (Altace -) 2.5 mg PO DAILY [facility] Last Admin: 05/07/18 09:24 Dose: 2.5 mg Solifenacin (Vesicare -) 5 mg PO DAILY [facility] Last Admin: 05/07/18 09:25 Dose: 5 mg Sotalol HCl (Betapace -) 40 mg PO BID [facility] Last Admin: 05/07/18 22:16 Dose: 40 mg Tamsulosin HCl (Flomax -) 0.4 mg PO 0830 [facility] Last Admin: 05/07/18 09:25 Dose: 0.4 mg Warfarin Sodium (Coumadin -) 3 mg PO 1800 [facility] Last Admin: 05/07/18 17:39 Dose: 3 mg - Objective Vital Signs: Vital Signs Temperature 99.4 F 05/07/18 16:25 Pulse Rate 70 05/07/18 16:25 Respiratory Rate 18 05/07/18 16:25 Blood Pressure 110/66 05/07/18 16:25 O2 Sat by Pulse Oximetry (%) 95 05/07/18 09:12 Labs: CBC, BMP 05/07/18 05:55 05/07/18 05:55 INR, PTT INR 2.74 (0.83-1.09) H 05/07/18 05:55 Problem List - Problems (1) Dyspnea Code(s): R06.00 - DYSPNEA, UNSPECIFIED (2) Paroxysmal a-fib Code(s): I48.0 - PAROXYSMAL ATRIAL FIBRILLATION (3) Diabetes Code(s): E11.9 - TYPE 2 DIABETES MELLITUS WITHOUT COMPLICATIONS Qualifiers: Diabetes mellitus type: type 2 Diabetes mellitus complication status: without complication (4) HTN (hypertension) Code(s): I10 - ESSENTIAL (PRIMARY) HYPERTENSION (5) Hyperlipidemia Code(s): E78.5 - HYPERLIPIDEMIA, UNSPECIFIED (6) H/O: lung cancer Code(s): Z85.118 - PERSONAL HISTORY OF MALIGNANT NEOPLASM OF BRONCHUS AND LUNG (7) ASHD (arteriosclerotic heart disease) Code(s): I25.10 - ATHSCL HEART DISEASE OF [place] CORONARY ARTERY W/O ANG PCTRS (8) S/P CABG (coronary artery bypass graft) Code(s): Z95.1 - PRESENCE OF AORTOCORONARY BYPASS GRAFT (9) Seizure Code(s): R56.9 - UNSPECIFIED CONVULSIONS
[2018-05-08] MEDS: methylPREDNISolone NA SUCC 40 MG/1 ML VIAL IVPUSH SCH ×4 (02:50→21:17)
[2018-05-08] MEDS: INSULIN SLIDING SCALE (NOVOLOG) 1 VIAL SQ SCH ×4 (06:18→21:19)
[2018-05-08 08:26] LABS: INR 2.63 (0.83-1.09); PROTHROMBIN TIME (PATIENT) 31.3 SEC (9.7-13.0)
[2018-05-08] MEDS ORDERED: PT OWN MED DRAWER 7, Y5N ONE (09:09)
[2018-05-08] MEDS: TAMSULOSIN HCL 0.4 MG CAP PO SCH (10:03)
[2018-05-08] MEDS: SOTALOL HCL 80 MG TABLET (FP) PO SCH ×2 (10:03→21:16)
[2018-05-08] MEDS: MULTIVITAMINS (DAILY MVI) TABLET (FP) PO SCH (10:03)
[2018-05-08] MEDS: SOLIFENACIN SUCCINATE 5 MG TAB (FP) PO SCH (10:04)
[2018-05-08] MEDS: PHENYTOIN NA EXTENDED 100 MG CAPSULE (FP) PO SCH ×2 (10:05→21:17)
[2018-05-08] MEDS: FUROSEMIDE 40 MG TABLET (FP) PO SCH (10:05)
[2018-05-08] MEDS: RAMIPRIL 2.5 MG CAPSULE (FP) PO SCH (10:05)
[2018-05-08] MEDS: ASPIRIN 81 MG CHEWABLE TABLETS PO SCH (10:05)
[2018-05-08] MEDS: FENOFIBRIC ACID 135 MG CAP PO SCH (10:05)
[2018-05-08] MEDS: DOXYCYCLINE INJECTION 100 MG in DEXTROSE 5%-WATER - 100 ML IVPB SCH (10:06)
--- NOTE | 2018-05-08 10:12 | PN ---
Progress Note (short form) - Note Progress Note: Subjective: --No acute events overnight. --States congestion improving with productive sputum, feels better today --Denies any lh, dizziness, chest pain, palpitations, orthopnea or PND Objective: Vital Signs - 24 hr 05/07/18 05/07/18 05/07/18 14:42 16:25 21:00 Temperature 98.8 F 99.4 F Pulse Rate 71 70 Respiratory 18 18 18 Rate Blood Pressure 110/66 110/66 O2 Sat by Pulse 95 Oximetry (%) 05/07/18 05/08/18 05/08/18 23:11 06:00 07:51 Temperature 98.0 F 98.1 F Pulse Rate 73 78 Respiratory 18 16 16 Rate Blood Pressure 124/67 125/81 O2 Sat by Pulse 95 Oximetry (%) 05/08/18 09:16 Temperature 98.4 F Pulse Rate 76 Respiratory 16 Rate Blood Pressure 106/67 O2 Sat by Pulse Oximetry (%) Gen: well appearing male in NAD HEENT: NC/AT. OP Clear, MMM Cardiac: S1/S2 no murmurs. JVP 7cm Pulm: clear breath sounds Abd: soft, nontender, nondistended. normal active bowel sounds Ext: WWP. No edema Laboratory Results - last 24 hr 05/07/18 05/07/18 05/07/18 11:44 16:37 20:38 PT with INR INR POC Glucometer 210 198 230 05/08/18 05/08/18 05:43 07:20 PT with INR 31.30 H INR 2.63 H POC Glucometer 235 A/P: Viral URI Chronic AF on Sotalol CAD Mild acute on chronic diastolic CHF- improved REC: 1. Continue Lasix 40 mg PO daily 2. Rx Viral URI as per PMD 3. Daily INR while on abx. Follow-up with cardiology as outpatient. William Fong MD
--- NOTE | 2018-05-08 12:12 | PN ---
Progress Note, Physician History of Present Illness: doing well no new issues remaining afebrile - Current Medication List Current Medications: Active Medications Acetaminophen (Tylenol -) 650 mg PO Q6H PRN PRN Reason: FEVER Albuterol/Ipratropium (Duoneb -) 1 amp NEB Q6H PRN PRN Reason: SHORTNESS OF BREATH Aspirin (Asa -) 81 mg PO DAILY [facility] Last Admin: 05/08/18 10:05 Dose: 81 mg Atorvastatin Calcium (Lipitor -) 40 mg PO HS [facility] Last Admin: 05/07/18 22:16 Dose: 40 mg Fenofibric Acid (Trilipix -) 135 mg PO DAILY [facility] Last Admin: 05/08/18 10:05 Dose: 135 mg Furosemide (Lasix -) 40 mg PO DAILY [facility] Last Admin: 05/08/18 10:05 Dose: 40 mg Guaifenesin (Robitussin -) 5 ml PO Q8H PRN PRN Reason: COUGH Last Admin: 05/07/18 22:18 Dose: 5 ml Doxycycline Hyclate 100 mg/ (Dextrose) 100 mls @ 100 mls/hr IVPB BID [facility] Last Admin: 05/08/18 10:06 Dose: Not Given Insulin Aspart (Novolog Vial Sliding Scale -) 1 vial SQ ACHS [facility]; Protocol Last Admin: 05/08/18 11:34 Dose: 10 units Methylprednisolone Sodium Succinate (Solu-Medrol -) 40 mg IVPUSH Q6H-IV [facility] Last Admin: 05/08/18 10:05 Dose: 40 mg Mirtazapine (Remeron -) 30 mg PO HS [facility] Last Admin: 05/07/18 22:16 Dose: 30 mg Multivitamins/Minerals/Vitamin C (Tab-A-Vit -) 1 tab PO DAILY [facility] Last Admin: 05/08/18 10:03 Dose: 1 tab Non-Formulary Medication (Insulin Detemir [Levemir Flextouch]) 5 unit SQ BID PRN PRN Reason: SLIDING SCALE >200 Phenytoin Sodium (Dilantin -) 100 mg PO BID [facility] Last Admin: 05/08/18 10:05 Dose: 100 mg Ramipril (Altace -) 2.5 mg PO DAILY [facility] Last Admin: 05/08/18 10:05 Dose: 2.5 mg Solifenacin (Vesicare -) 5 mg PO DAILY [facility] Last Admin: 10/20/18 10:04 Dose: 5 mg Sotalol HCl (Betapace -) 40 mg PO BID [facility] Last Admin: 05/08/18 10:03 Dose: 40 mg Tamsulosin HCl (Flomax -) 0.4 mg PO 0830 [facility] Last Admin: 05/08/18 10:03 Dose: 0.4 mg Warfarin Sodium (Coumadin -) 3 mg PO 1800 [facility] Last Admin: 05/07/18 17:39 Dose: 3 mg - Objective Vital Signs: Vital Signs Temperature 98.4 F 05/08/18 09:16 Pulse Rate 76 05/08/18 09:16 Respiratory Rate 16 05/08/18 09:16 Blood Pressure 106/67 05/08/18 09:16 O2 Sat by Pulse Oximetry (%) 95 05/08/18 07:51 Constitutional: Yes: No Distress, Calm Cardiovascular: Yes: Regular Rate and Rhythm Respiratory: Yes: Regular, CTA Bilaterally Gastrointestinal: Yes: Normal Bowel Sounds, Soft Musculoskeletal: Yes: WNL Extremities: Yes: WNL Neurological: Yes: Alert, Oriented Psychiatric: Yes: Alert, Oriented Labs: CBC, BMP 05/07/18 05:55 05/07/18 05:55 INR, PTT INR 2.63 (0.83-1.09) H 05/08/18 07:20 Assessment/Plan Problem List - Problems (1) Dyspnea Code(s): R06.00 - DYSPNEA, UNSPECIFIED (2) Paroxysmal a-fib Code(s): I48.0 - PAROXYSMAL ATRIAL FIBRILLATION (3) Diabetes Code(s): E11.9 - TYPE 2 DIABETES MELLITUS WITHOUT COMPLICATIONS Qualifiers: Diabetes mellitus type: type 2 Diabetes mellitus complication status: without complication (4) HTN (hypertension) Code(s): I10 - ESSENTIAL (PRIMARY) HYPERTENSION (5) Hyperlipidemia Code(s): E78.5 - HYPERLIPIDEMIA, UNSPECIFIED (6) H/O: lung cancer Code(s): Z85.118 - PERSONAL HISTORY OF MALIGNANT NEOPLASM OF BRONCHUS AND LUNG (7) ASHD (arteriosclerotic heart disease) Code(s): I25.10 - ATHSCL HEART DISEASE OF [place] CORONARY ARTERY W/O ANG PCTRS (8) S/P CABG (coronary artery bypass graft) Code(s): Z95.1 - PRESENCE OF AORTOCORONARY BYPASS GRAFT (9) Seizure Code(s): R56.9 - UNSPECIFIED CONVULSIONS plan will stop doxy all cx result noted monitor off of abx rest as per the team
--- NOTE | 2018-05-08 12:59 | PN ---
Progress Note, Physician History of Present Illness: pulmonary alert,feeling better,less congested - Current Medication List Current Medications: Active Medications Acetaminophen (Tylenol -) 650 mg PO Q6H PRN PRN Reason: FEVER Albuterol/Ipratropium (Duoneb -) 1 amp NEB Q6H PRN PRN Reason: SHORTNESS OF BREATH Aspirin (Asa -) 81 mg PO DAILY [facility] Last Admin: 05/08/18 10:05 Dose: 81 mg Atorvastatin Calcium (Lipitor -) 40 mg PO HS [facility] Last Admin: 05/07/18 22:16 Dose: 40 mg Fenofibric Acid (Trilipix -) 135 mg PO DAILY [facility] Last Admin: 05/08/18 10:05 Dose: 135 mg Furosemide (Lasix -) 40 mg PO DAILY [facility] Last Admin: 05/08/18 10:05 Dose: 40 mg Guaifenesin (Robitussin -) 5 ml PO Q8H PRN PRN Reason: COUGH Last Admin: 05/07/18 22:18 Dose: 5 ml Insulin Aspart (Novolog Vial Sliding Scale -) 1 vial SQ [facility]; Protocol Last Admin: 05/08/18 11:34 Dose: 10 units Methylprednisolone Sodium Succinate (Solu-Medrol -) 40 mg IVPUSH Q6H-IV [facility] Last Admin: 05/08/18 10:05 Dose: 40 mg Mirtazapine (Remeron -) 30 mg PO HS [facility] Last Admin: 05/07/18 22:16 Dose: 30 mg Multivitamins/Minerals/Vitamin C (Tab-A-Vit -) 1 tab PO DAILY [facility] Last Admin: 05/08/18 10:03 Dose: 1 tab Non-Formulary Medication (Insulin Detemir [Levemir Flextouch]) 5 unit SQ BID PRN PRN Reason: SLIDING SCALE >200 Phenytoin Sodium (Dilantin -) 100 mg PO BID [facility] Last Admin: 05/08/18 10:05 Dose: 100 mg Ramipril (Altace -) 2.5 mg PO DAILY [facility] Last Admin: 05/08/18 10:05 Dose: 2.5 mg Solifenacin (Vesicare -) 5 mg PO DAILY [facility] Last Admin: 05/08/18 10:04 Dose: 5 mg Sotalol HCl (Betapace -) 40 mg PO BID [facility] Last Admin: 05/08/18 10:03 Dose: 40 mg Tamsulosin HCl (Flomax -) 0.4 mg PO 0830 [facility] Last Admin: 05/08/18 10:03 Dose: 0.4 mg Warfarin Sodium (Coumadin -) 3 mg PO 1800 [facility] Last Admin: 05/07/18 17:39 Dose: 3 mg - Objective Vital Signs: Vital Signs Temperature 98.4 F 05/08/18 09:16 Pulse Rate 76 05/08/18 09:16 Respiratory Rate 16 05/08/18 09:16 Blood Pressure 106/67 05/08/18 09:16 O2 Sat by Pulse Oximetry (%) 95 05/08/18 07:51 Constitutional: Yes: Well Nourished, Calm Eyes: Yes: WNL HENT: Yes: WNL Neck: Yes: WNL Cardiovascular: Yes: Regular Rate and Rhythm, Pulse Irregular, S1, S2 Respiratory: Yes: Diminished Gastrointestinal: Yes: Normal Bowel Sounds, Soft Extremities: Yes: WNL Edema: No Labs: CBC, BMP 05/07/18 05:55 05/07/18 05:55 INR, PTT INR 2.63 (0.83-1.09) H 05/08/18 07:20 Problem List - Problems (1) COPD exacerbation Code(s): J44.1 - CHRONIC OBSTRUCTIVE PULMONARY DISEASE W (ACUTE) EXACERBATION (2) Dyspnea Code(s): R06.00 - DYSPNEA, UNSPECIFIED (3) Paroxysmal a-fib Code(s): I48.0 - PAROXYSMAL ATRIAL FIBRILLATION (4) S/P CABG (coronary artery bypass graft) Code(s): Z95.1 - PRESENCE OF AORTOCORONARY BYPASS GRAFT (5) Seizure Code(s): R56.9 - UNSPECIFIED CONVULSIONS (6) Shortness of breath Code(s): R06.02 - SHORTNESS OF BREATH (7) Afib Code(s): I48.91 - UNSPECIFIED ATRIAL FIBRILLATION Qualifiers: Atrial fibrillation type: chronic Qualified Code(s): I48.2 - Chronic atrial fibrillation (8) Diabetes Code(s): E11.9 - TYPE 2 DIABETES MELLITUS WITHOUT COMPLICATIONS Qualifiers: Diabetes mellitus type: type 2 Diabetes mellitus complication status: without complication (9) HTN (hypertension) Code(s): I10 - ESSENTIAL (PRIMARY) HYPERTENSION Assessment/Plan IMP DYSPNEA/CONGESTION IMPROVING COPD EXACERBATION URI AFIB H/O LUNG CA S/P LLL LOBECTOMY ASHD S/P CABG DM HTN ELEVATED BNP H/O SEIZURES PLAN IV STEROIDS SAME DOSE O2 INHALED BRONCHODILATORS ANTI-TUSSIVES AC DR ARAGON Problem List - Problems (1) COPD exacerbation Code(s): J44.1 - CHRONIC OBSTRUCTIVE PULMONARY DISEASE W (ACUTE) EXACERBATION (2) Dyspnea Code(s): R06.00 - DYSPNEA, UNSPECIFIED (3) Paroxysmal a-fib Code(s): I48.0 - PAROXYSMAL ATRIAL FIBRILLATION (4) S/P CABG (coronary artery bypass graft) Code(s): Z95.1 - PRESENCE OF AORTOCORONARY BYPASS GRAFT (5) Seizure Code(s): R56.9 - UNSPECIFIED CONVULSIONS (6) Shortness of breath Code(s): R06.02 - SHORTNESS OF BREATH (7) Afib Code(s): I48.91 - UNSPECIFIED ATRIAL FIBRILLATION Qualifiers: Atrial fibrillation type: chronic Qualified Code(s): I48.2 - Chronic atrial fibrillation (8) Diabetes Code(s): E11.9 - TYPE 2 DIABETES MELLITUS WITHOUT COMPLICATIONS Qualifiers: Diabetes mellitus type: type 2 Diabetes mellitus complication status: without complication (9) HTN (hypertension) Code(s): I10 - ESSENTIAL (PRIMARY) HYPERTENSION
--- NOTE | 2018-05-08 13:46 | PN ---
Progress Note, Physician - Current Medication List Current Medications: Active Medications Acetaminophen (Tylenol -) 650 mg PO Q6H PRN PRN Reason: FEVER Albuterol/Ipratropium (Duoneb -) 1 amp NEB Q6H PRN PRN Reason: SHORTNESS OF BREATH Aspirin (Asa -) 81 mg PO DAILY [facility] Last Admin: 05/08/18 10:05 Dose: 81 mg Atorvastatin Calcium (Lipitor -) 40 mg PO HS [facility] Last Admin: 05/07/18 22:16 Dose: 40 mg Fenofibric Acid (Trilipix -) 135 mg PO DAILY [facility] Last Admin: 05/08/18 10:05 Dose: 135 mg Furosemide (Lasix -) 40 mg PO DAILY [facility] Last Admin: 05/08/18 10:05 Dose: 40 mg Guaifenesin (Robitussin -) 5 ml PO Q8H PRN PRN Reason: COUGH Last Admin: 05/07/18 22:18 Dose: 5 ml Insulin Aspart (Novolog Vial Sliding Scale -) 1 vial SQ ACHS [facility]; Protocol Last Admin: 05/08/18 11:34 Dose: 10 units Methylprednisolone Sodium Succinate (Solu-Medrol -) 40 mg IVPUSH Q6H-IV [facility] Last Admin: 05/08/18 10:05 Dose: 40 mg Mirtazapine (Remeron -) 30 mg PO HS [facility] Last Admin: 05/07/18 22:16 Dose: 30 mg Multivitamins/Minerals/Vitamin C (Tab-A-Vit -) 1 tab PO DAILY [facility] Last Admin: 05/08/18 10:03 Dose: 1 tab Non-Formulary Medication (Insulin Detemir [Levemir Flextouch]) 5 unit SQ BID PRN PRN Reason: SLIDING SCALE >200 Phenytoin Sodium (Dilantin -) 100 mg PO BID [facility] Last Admin: 05/08/18 10:05 Dose: 100 mg Ramipril (Altace -) 2.5 mg PO DAILY [facility] Last Admin: 05/08/18 10:05 Dose: 2.5 mg Solifenacin (Vesicare -) 5 mg PO DAILY [facility] Last Admin: 05/08/18 10:04 Dose: 5 mg Sotalol HCl (Betapace -) 40 mg PO BID [facility] Last Admin: 05/08/18 10:03 Dose: 40 mg Tamsulosin HCl (Flomax -) 0.4 mg PO 0830 [facility] Last Admin: 05/08/18 10:03 Dose: 0.4 mg Warfarin Sodium (Coumadin -) 3 mg PO 1800 [facility] Last Admin: 05/07/18 17:39 Dose: 3 mg - Objective Vital Signs: Vital Signs Temperature 98.4 F 05/08/18 09:16 Pulse Rate 76 05/08/18 09:16 Respiratory Rate 16 05/08/18 09:16 Blood Pressure 106/67 05/08/18 09:16 O2 Sat by Pulse Oximetry (%) 95 05/08/18 07:51 Labs: CBC, BMP 05/07/18 05:55 05/07/18 05:55 INR, PTT INR 2.63 (0.83-1.09) H 05/08/18 07:20 Problem List - Problems (1) Dyspnea Code(s): R06.00 - DYSPNEA, UNSPECIFIED (2) Paroxysmal a-fib Code(s): I48.0 - PAROXYSMAL ATRIAL FIBRILLATION (3) Diabetes Code(s): E11.9 - TYPE 2 DIABETES MELLITUS WITHOUT COMPLICATIONS Qualifiers: Diabetes mellitus type: type 2 Diabetes mellitus complication status: without complication (4) HTN (hypertension) Code(s): I10 - ESSENTIAL (PRIMARY) HYPERTENSION (5) Hyperlipidemia Code(s): E78.5 - HYPERLIPIDEMIA, UNSPECIFIED (6) H/O: lung cancer Code(s): Z85.118 - PERSONAL HISTORY OF MALIGNANT NEOPLASM OF BRONCHUS AND LUNG (7) ASHD (arteriosclerotic heart disease) Code(s): I25.10 - ATHSCL HEART DISEASE OF [place] CORONARY ARTERY W/O ANG PCTRS (8) S/P CABG (coronary artery bypass graft) Code(s): Z95.1 - PRESENCE OF AORTOCORONARY BYPASS GRAFT (9) Seizure Code(s): R56.9 - UNSPECIFIED CONVULSIONS
[2018-05-08] MEDS: WARFARIN NA 3 MG TABLET PO SCH (17:22)
[2018-05-08] MEDS: ATORVASTATIN CA 40 MG TABLET (FP) PO SCH (21:16)
[2018-05-08] MEDS: MIRTAZAPINE 30 MG TABLET (FP) PO SCH (21:17)
[2018-05-08] MEDS ORDERED: INSULIN (NOVOLOG) ASPART 100 UNITS/ML 10ML VIAL ONE (21:19)
[2018-05-08] MEDS: guaiFENesin 200 MG/10 ML 10 ML UNIT-DOSE CUPS PO PRN (22:20)
[2018-05-09] MEDS: methylPREDNISolone NA SUCC 40 MG/1 ML VIAL IVPUSH SCH ×4 (02:25→21:18)
[2018-05-09] MEDS: INSULIN SLIDING SCALE (NOVOLOG) 1 VIAL SQ SCH ×4 (06:13→21:17)
[2018-05-09] MEDS ORDERED: PT OWN MED DRAWER 7, Y5N ONE (08:36)
[2018-05-09] MEDS: TAMSULOSIN HCL 0.4 MG CAP PO SCH (09:11)
[2018-05-09] MEDS: ASPIRIN 81 MG CHEWABLE TABLETS PO SCH (09:11)
[2018-05-09] MEDS: SOLIFENACIN SUCCINATE 5 MG TAB (FP) PO SCH (09:11)
[2018-05-09] MEDS: RAMIPRIL 2.5 MG CAPSULE (FP) PO SCH (09:11)
[2018-05-09] MEDS: FUROSEMIDE 40 MG TABLET (FP) PO SCH (09:11)
[2018-05-09] MEDS: PHENYTOIN NA EXTENDED 100 MG CAPSULE (FP) PO SCH ×2 (09:11→21:18)
[2018-05-09] MEDS: SOTALOL HCL 80 MG TABLET (FP) PO SCH ×2 (09:11→21:18)
[2018-05-09] MEDS: MULTIVITAMINS (DAILY MVI) TABLET (FP) PO SCH (09:11)
[2018-05-09] MEDS: FENOFIBRIC ACID 135 MG CAP PO SCH (09:12)
--- NOTE | 2018-05-09 11:24 | PN ---
Progress Note, Physician History of Present Illness: pulmonary alert,oob-chair,feeling better,less congested,less dyspneic - Current Medication List Current Medications: Active Medications Acetaminophen (Tylenol -) 650 mg PO Q6H PRN PRN Reason: FEVER Albuterol/Ipratropium (Duoneb -) 1 amp NEB Q6H PRN PRN Reason: SHORTNESS OF BREATH Aspirin (Asa -) 81 mg PO DAILY [facility] Last Admin: 05/09/18 09:11 Dose: 81 mg Atorvastatin Calcium (Lipitor -) 40 mg PO HS [facility] Last Admin: 05/08/18 21:16 Dose: 40 mg Fenofibric Acid (Trilipix -) 135 mg PO DAILY [facility] Last Admin: 05/09/18 09:12 Dose: 135 mg Furosemide (Lasix -) 40 mg PO DAILY [facility] Last Admin: 05/09/18 09:11 Dose: 40 mg Guaifenesin (Robitussin -) 5 ml PO Q8H PRN PRN Reason: COUGH Last Admin: 05/08/18 22:20 Dose: 5 ml Insulin Aspart (Novolog Vial Sliding Scale -) 1 vial SQ [facility]; Protocol Last Admin: 05/09/18 06:13 Dose: 4 units Methylprednisolone Sodium Succinate (Solu-Medrol -) 40 mg IVPUSH Q6H-IV [facility] Last Admin: 05/09/18 09:07 Dose: 40 mg Mirtazapine (Remeron -) 30 mg PO [facility] Last Admin: 05/08/18 21:17 Dose: 30 mg Multivitamins/Minerals/Vitamin C (Tab-A-Vit -) 1 tab PO DAILY [facility] Last Admin: 05/09/18 09:11 Dose: 1 tab Non-Formulary Medication (Insulin Detemir [Levemir Flextouch]) 5 unit SQ BID PRN PRN Reason: SLIDING SCALE >200 Phenytoin Sodium (Dilantin -) 100 mg PO BID [facility] Last Admin: 05/09/18 09:11 Dose: 100 mg Ramipril (Altace -) 2.5 mg PO DAILY [facility] Last Admin: 05/09/18 09:11 Dose: 2.5 mg Solifenacin (Vesicare -) 5 mg PO DAILY [facility] Last Admin: 05/09/18 09:11 Dose: 5 mg Sotalol HCl (Betapace -) 40 mg PO BID [facility] Last Admin: 05/09/18 09:11 Dose: 40 mg Tamsulosin HCl (Flomax -) 0.4 mg PO 0830 [facility] Last Admin: 05/09/18 09:11 Dose: 0.4 mg Warfarin Sodium (Coumadin -) 3 mg PO 1800 [facility] Last Admin: 05/08/18 17:22 Dose: 3 mg - Objective Vital Signs: Vital Signs Temperature 98.6 F 05/09/18 05:53 Pulse Rate 75 05/09/18 09:16 Respiratory Rate 18 05/09/18 09:16 Blood Pressure 110/64 05/09/18 09:16 O2 Sat by Pulse Oximetry (%) 95 05/09/18 08:15 Constitutional: Yes: Well Nourished, Calm Eyes: Yes: WNL HENT: Yes: WNL Neck: Yes: WNL Cardiovascular: Yes: Pulse Irregular, S1, S2 Respiratory: Yes: Wheezes (few scattered wheezes) Gastrointestinal: Yes: Normal Bowel Sounds, Soft Extremities: Yes: WNL Edema: No Labs: CBC, BMP Problem List - Problems (1) COPD exacerbation Code(s): J44.1 - CHRONIC OBSTRUCTIVE PULMONARY DISEASE W (ACUTE) EXACERBATION (2) Dyspnea Code(s): R06.00 - DYSPNEA, UNSPECIFIED (3) Paroxysmal a-fib Code(s): I48.0 - PAROXYSMAL ATRIAL FIBRILLATION (4) S/P CABG (coronary artery bypass graft) Code(s): Z95.1 - PRESENCE OF AORTOCORONARY BYPASS GRAFT (5) Seizure Code(s): R56.9 - UNSPECIFIED CONVULSIONS (6) Shortness of breath Code(s): R06.02 - SHORTNESS OF BREATH (7) Afib Code(s): I48.91 - UNSPECIFIED ATRIAL FIBRILLATION Qualifiers: Atrial fibrillation type: chronic Qualified Code(s): I48.2 - Chronic atrial fibrillation (8) Diabetes Code(s): E11.9 - TYPE 2 DIABETES MELLITUS WITHOUT COMPLICATIONS Qualifiers: Diabetes mellitus type: type 2 Diabetes mellitus complication status: without complication (9) HTN (hypertension) Code(s): I10 - ESSENTIAL (PRIMARY) HYPERTENSION Assessment/Plan IMP DYSPNEA/CONGESTION IMPROVING COPD EXACERBATION IMPROVING URI AFIB H/O LUNG CA S/P LLL LOBECTOMY ASHD S/P CABG DM HTN ELEVATED BNP H/O SEIZURES PLAN MEDROL TAPER O2 INHALED BRONCHODILATORS ANTI-TUSSIVES AC DR ARAGON Problem List - Problems (1) COPD exacerbation Code(s): J44.1 - CHRONIC OBSTRUCTIVE PULMONARY DISEASE W (ACUTE) EXACERBATION (2) Dyspnea Code(s): R06.00 - DYSPNEA, UNSPECIFIED (3) Paroxysmal a-fib Code(s): I48.0 - PAROXYSMAL ATRIAL FIBRILLATION (4) S/P CABG (coronary artery bypass graft) Code(s): Z95.1 - PRESENCE OF AORTOCORONARY BYPASS GRAFT (5) Seizure Code(s): R56.9 - UNSPECIFIED CONVULSIONS (6) Shortness of breath Code(s): R06.02 - SHORTNESS OF BREATH (7) Afib Code(s): I48.91 - UNSPECIFIED ATRIAL FIBRILLATION Qualifiers: Atrial fibrillation type: chronic Qualified Code(s): I48.2 - Chronic atrial fibrillation (8) Diabetes Code(s): E11.9 - TYPE 2 DIABETES MELLITUS WITHOUT COMPLICATIONS Qualifiers: Diabetes mellitus type: type 2 Diabetes mellitus complication status: without complication (9) HTN (hypertension) Code(s): I10 - ESSENTIAL (PRIMARY) HYPERTENSION
[2018-05-09] MEDS ORDERED: INSULIN (NOVOLOG) ASPART 100 UNITS/ML 10ML VIAL ONE ×2 (11:31→21:12)
--- NOTE | 2018-05-09 13:31 | PN ---
Progress Note, Physician History of Present Illness: doing well no new issues breathing well - Current Medication List Current Medications: Active Medications Acetaminophen (Tylenol -) 650 mg PO Q6H PRN PRN Reason: FEVER Albuterol/Ipratropium (Duoneb -) 1 amp NEB Q6H PRN PRN Reason: SHORTNESS OF BREATH Aspirin (Asa -) 81 mg PO DAILY [facility] Last Admin: 05/09/18 09:11 Dose: 81 mg Atorvastatin Calcium (Lipitor -) 40 mg PO HS [facility] Last Admin: 05/08/18 21:16 Dose: 40 mg Fenofibric Acid (Trilipix -) 135 mg PO DAILY [facility] Last Admin: 05/09/18 09:12 Dose: 135 mg Furosemide (Lasix -) 40 mg PO DAILY [facility] Last Admin: 05/09/18 09:11 Dose: 40 mg Guaifenesin (Robitussin -) 5 ml PO Q8H PRN PRN Reason: COUGH Last Admin: 05/08/18 22:20 Dose: 5 ml Insulin Aspart (Novolog Vial Sliding Scale -) 1 vial SQ [facility]; Protocol Last Admin: 05/09/18 12:05 Dose: 8 units Methylprednisolone Sodium Succinate (Solu-Medrol -) 40 mg IVPUSH Q6H-IV [facility] Last Admin: 05/09/18 09:07 Dose: 40 mg Mirtazapine (Remeron -) 30 mg PO HS [facility] Last Admin: 05/08/18 21:17 Dose: 30 mg Multivitamins/Minerals/Vitamin C (Tab-A-Vit -) 1 tab PO DAILY [facility] Last Admin: 05/09/18 09:11 Dose: 1 tab Non-Formulary Medication (Insulin Detemir [Levemir Flextouch]) 5 unit SQ BID PRN PRN Reason: SLIDING SCALE >200 Phenytoin Sodium (Dilantin -) 100 mg PO BID [facility] Last Admin: 05/09/18 09:11 Dose: 100 mg Ramipril (Altace -) 2.5 mg PO DAILY [facility] Last Admin: 05/09/18 09:11 Dose: 2.5 mg Solifenacin (Vesicare -) 5 mg PO DAILY [facility] Last Admin: 05/09/18 09:11 Dose: 5 mg Sotalol HCl (Betapace -) 40 mg PO BID [facility] Last Admin: 05/09/18 09:11 Dose: 40 mg Tamsulosin HCl (Flomax -) 0.4 mg PO 0830 [facility] Last Admin: 05/09/18 09:11 Dose: 0.4 mg Warfarin Sodium (Coumadin -) 3 mg PO 1800 [facility] Last Admin: 05/08/18 17:22 Dose: 3 mg - Objective Vital Signs: Vital Signs Temperature 98.6 F 05/09/18 05:53 Pulse Rate 75 05/09/18 09:16 Respiratory Rate 18 05/09/18 09:16 Blood Pressure 110/64 05/09/18 09:16 O2 Sat by Pulse Oximetry (%) 95 05/09/18 08:15 Constitutional: Yes: No Distress, Calm Cardiovascular: Yes: Regular Rate and Rhythm Respiratory: Yes: Regular, CTA Bilaterally Gastrointestinal: Yes: Normal Bowel Sounds, Soft Musculoskeletal: Yes: WNL Extremities: Yes: WNL Neurological: Yes: Alert, Oriented Psychiatric: Yes: Alert, Oriented Labs: CBC, BMP 05/07/18 05:55 05/07/18 05:55 INR, PTT INR 2.63 (0.83-1.09) H 05/08/18 07:20 Assessment/Plan Problem List - Problems (1) Dyspnea Code(s): R06.00 - DYSPNEA, UNSPECIFIED (2) Paroxysmal a-fib Code(s): I48.0 - PAROXYSMAL ATRIAL FIBRILLATION (3) Diabetes Code(s): E11.9 - TYPE 2 DIABETES MELLITUS WITHOUT COMPLICATIONS Qualifiers: Diabetes mellitus type: type 2 Diabetes mellitus complication status: without complication (4) HTN (hypertension) Code(s): I10 - ESSENTIAL (PRIMARY) HYPERTENSION (5) Hyperlipidemia Code(s): E78.5 - HYPERLIPIDEMIA, UNSPECIFIED (6) H/O: lung cancer Code(s): Z85.118 - PERSONAL HISTORY OF MALIGNANT NEOPLASM OF BRONCHUS AND LUNG (7) ASHD (arteriosclerotic heart disease) Code(s): I25.10 - ATHSCL HEART DISEASE OF [place] CORONARY ARTERY W/O ANG PCTRS (8) S/P CABG (coronary artery bypass graft) Code(s): Z95.1 - PRESENCE OF AORTOCORONARY BYPASS GRAFT (9) Seizure Code(s): R56.9 - UNSPECIFIED CONVULSIONS plan continue to monitor off of abx rest as per the team patient doing well improving
[2018-05-09] MEDS: WARFARIN NA 3 MG TABLET PO SCH (17:16)
--- NOTE | 2018-05-09 20:38 | PN ---
Progress Note, Physician History of Present Illness: No new complaints - Current Medication List Current Medications: Active Medications Acetaminophen (Tylenol -) 650 mg PO Q6H PRN PRN Reason: FEVER Albuterol/Ipratropium (Duoneb -) 1 amp NEB Q6H PRN PRN Reason: SHORTNESS OF BREATH Aspirin (Asa -) 81 mg PO DAILY [facility] Last Admin: 05/09/18 09:11 Dose: 81 mg Atorvastatin Calcium (Lipitor -) 40 mg PO HS [facility] Last Admin: 05/08/18 21:16 Dose: 40 mg Fenofibric Acid (Trilipix -) 135 mg PO DAILY [facility] Last Admin: 05/09/18 09:12 Dose: 135 mg Furosemide (Lasix -) 40 mg PO DAILY [facility] Last Admin: 05/09/18 09:11 Dose: 40 mg Guaifenesin (Robitussin -) 5 ml PO Q8H PRN PRN Reason: COUGH Last Admin: 05/08/18 22:20 Dose: 5 ml Insulin Aspart (Novolog Vial Sliding Scale -) 1 vial SQ [facility]; Protocol Last Admin: 05/09/18 17:16 Dose: 10 units Methylprednisolone Sodium Succinate (Solu-Medrol -) 40 mg IVPUSH Q6H-IV [facility] Last Admin: 05/09/18 14:08 Dose: 40 mg Mirtazapine (Remeron -) 30 mg PO HS [facility] Last Admin: 05/08/18 21:17 Dose: 30 mg Multivitamins/Minerals/Vitamin C (Tab-A-Vit -) 1 tab PO DAILY [facility] Last Admin: 05/09/18 09:11 Dose: 1 tab Non-Formulary Medication (Insulin Detemir [Levemir Flextouch]) 5 unit SQ BID PRN PRN Reason: SLIDING SCALE >200 Phenytoin Sodium (Dilantin -) 100 mg PO BID [facility] Last Admin: 05/09/18 09:11 Dose: 100 mg Ramipril (Altace -) 2.5 mg PO DAILY [facility] Last Admin: 05/09/18 09:11 Dose: 2.5 mg Solifenacin (Vesicare -) 5 mg PO DAILY [facility] Last Admin: 05/09/18 09:11 Dose: 5 mg Sotalol HCl (Betapace -) 40 mg PO BID [facility] Last Admin: 05/09/18 09:11 Dose: 40 mg Tamsulosin HCl (Flomax -) 0.4 mg PO 0830 [facility] Last Admin: 05/09/18 09:11 Dose: 0.4 mg Warfarin Sodium (Coumadin -) 3 mg PO 1800 [facility] Last Admin: 05/09/18 17:16 Dose: 3 mg - Objective Vital Signs: Vital Signs Temperature 98.6 F 05/09/18 05:53 Pulse Rate 75 05/09/18 09:16 Respiratory Rate 18 05/09/18 09:16 Blood Pressure 110/64 05/09/18 09:16 O2 Sat by Pulse Oximetry (%) 95 05/09/18 08:15 Neck: Yes: WNL, Supple Cardiovascular: Yes: WNL, Regular Rate and Rhythm Respiratory: Yes: Rhonchi Gastrointestinal: Yes: WNL, Normal Bowel Sounds, Soft Extremities: Yes: WNL Edema: No Labs: CBC, BMP 05/07/18 05:55 05/07/18 05:55 INR, PTT INR 2.63 (0.83-1.09) H 05/08/18 07:20 Problem List - Problems (1) Dyspnea Assessment/Plan: Due to COPD exacerbation Cont IV antibxs/nebulizers Cont IV solumedrol and taper as indicated Code(s): R06.00 - DYSPNEA, UNSPECIFIED (2) Acute on chronic diastolic (congestive) heart failure Assessment/Plan: Cont PO lasix Check electrolytes Code(s): I50.33 - ACUTE ON CHRONIC DIASTOLIC (CONGESTIVE) HEART FAILURE (3) Paroxysmal a-fib Assessment/Plan: Cont coumadin Follow PT/INR Rate controlled Code(s): I48.0 - PAROXYSMAL ATRIAL FIBRILLATION (4) Diabetes Assessment/Plan: Cont sliding scale w/ coverage and levemir Will add janumet Glucose uncontrolled Probably due to steroids Code(s): E11.9 - TYPE 2 DIABETES MELLITUS WITHOUT COMPLICATIONS Qualifiers: Diabetes mellitus type: type 2 Diabetes mellitus complication status: without complication (5) HTN (hypertension) Assessment/Plan: BP stable Cont asa/lasix/ramipril Code(s): I10 - ESSENTIAL (PRIMARY) HYPERTENSION (6) Hyperlipidemia Assessment/Plan: Cont fenofibrate/lipitor Code(s): E78.5 - HYPERLIPIDEMIA, UNSPECIFIED (7) H/O: lung cancer Code(s): Z85.118 - PERSONAL HISTORY OF MALIGNANT NEOPLASM OF BRONCHUS AND LUNG (8) ASHD (arteriosclerotic heart disease) Code(s): I25.10 - ATHSCL HEART DISEASE OF [place] CORONARY ARTERY W/O ANG PCTRS (9) S/P CABG (coronary artery bypass graft) Code(s): Z95.1 - PRESENCE OF AORTOCORONARY BYPASS GRAFT (10) Seizure Assessment/Plan: Cont dilantin Code(s): R56.9 - UNSPECIFIED CONVULSIONS
[2018-05-09] MEDS: ATORVASTATIN CA 40 MG TABLET (FP) PO SCH (21:18)
[2018-05-09] MEDS: MIRTAZAPINE 30 MG TABLET (FP) PO SCH (21:18)
[2018-05-10] MEDS: methylPREDNISolone NA SUCC 40 MG/1 ML VIAL IVPUSH SCH ×3 (02:51→21:41)
[2018-05-10] MEDS: sitaGLIPtin PHOSPHATE 100 MG TABLET (FP) PO SCH (06:35)
[2018-05-10] MEDS: INSULIN SLIDING SCALE (NOVOLOG) 1 VIAL SQ SCH ×4 (06:35→21:40)
[2018-05-10] MEDS: metFORMIN HCL 500 MG TABLET (FP) PO SCH ×2 (06:35→17:15)
[2018-05-10 06:40] LABS: BASO % 0.1 % (0-2.0); HEMOGLOBIN 12.5 GM/dL (11.7-16.9); LYMPH % 9.4 % (8-40); MCH 31.3 pg (25.7-33.7); MCHC 32.8 g/dl (32.0-35.9); MEAN CELL VOLUME 95.3 fl (80-96); MEAN PLT VOLUME 9.4 fl (7.5-11.1); MONO % 3.8 % (3.8-10.2); NEUT % 86.7 % (42.8-82.8); PLATELET COUNT 172 K/MM3 (134-434); RBC 3.98 M/mm3 (4.00-5.60); RDW 14.1 % (11.9-15.9); WHITE BLOOD COUNT 6.1 K/mm3 (4.0-10.0)
[2018-05-10 07:18] LABS: ALBUMIN 3.5 g/dl (3.4-5.0); ALK PHOS 51 U/L (45-117); ANION GAP 6 MMOL/L (8-16); BILIRUBIN,TOTAL 0.6 mg/dL (0.2-1); BLOOD UREA NITROGEN 29 mg/dL (7-18); CALCIUM 9.1 mg/dL (8.5-10.1); CHLORIDE 103 mmol/L (98-107); CO2 28 mmol/L (21-32); CREATININE 0.9 mg/dL (0.55-1.3); GLUCOSE,RANDOM 293 mg/dL (74-106); POTASSIUM 4.7 mmol/L (3.5-5.1); SGOT/AST 26 U/L (15-37); SGPT/ALT 48 U/L (13-61); SODIUM 137 mmol/L (136-145)
[2018-05-10] MEDS ORDERED: PT OWN MED DRAWER 7, Y5N ONE (08:46)
--- NOTE | 2018-05-10 08:48 | PN ---
Progress Note, Physician Chief Complaint: feeling better, no acute distress - Current Medication List Current Medications: Active Medications Acetaminophen (Tylenol -) 650 mg PO Q6H PRN PRN Reason: FEVER Aspirin (Asa -) 81 mg PO DAILY [facility] Last Admin: 05/09/18 09:11 Dose: 81 mg Atorvastatin Calcium (Lipitor -) 40 mg PO HS [facility] Last Admin: 05/09/18 21:18 Dose: 40 mg Fenofibric Acid (Trilipix -) 135 mg PO DAILY [facility] Last Admin: 05/09/18 09:12 Dose: 135 mg Furosemide (Lasix -) 40 mg PO DAILY [facility] Last Admin: 05/09/18 09:11 Dose: 40 mg Guaifenesin (Robitussin -) 5 ml PO Q8H PRN PRN Reason: COUGH Last Admin: 05/08/18 22:20 Dose: 5 ml Insulin Aspart (Novolog Vial Sliding Scale -) 1 vial SQ [facility]; Protocol Last Admin: 05/10/18 06:35 Dose: 6 units Insulin Detemir (Levemir Vial) 10 units SQ [facility] Metformin HCl (Glucophage -) 1,000 mg PO BID@0700,1630 [facility] Last Admin: 05/10/18 06:35 Dose: 1,000 mg Methylprednisolone Sodium Succinate (Solu-Medrol -) 40 mg IVPUSH Q6H-IV [facility] Last Admin: 05/10/18 02:51 Dose: 40 mg Mirtazapine (Remeron -) 30 mg PO HS [facility] Last Admin: 05/09/18 21:18 Dose: 30 mg Multivitamins/Minerals/Vitamin C (Tab-A-Vit -) 1 tab PO DAILY [facility] Last Admin: 05/09/18 09:11 Dose: 1 tab Phenytoin Sodium (Dilantin -) 100 mg PO BID [facility] Last Admin: 05/09/18 21:18 Dose: 100 mg Ramipril (Altace -) 2.5 mg PO DAILY [facility] Last Admin: 05/09/18 09:11 Dose: 2.5 mg Sitagliptin Phosphate (Januvia -) 100 mg PO DAILY@0700 [facility] Last Admin: 05/10/18 06:35 Dose: 100 mg Solifenacin (Vesicare -) 5 mg PO DAILY [facility] Last Admin: 05/09/18 09:11 Dose: 5 mg Sotalol HCl (Betapace -) 40 mg PO BID [facility] Last Admin: 05/09/18 21:18 Dose: 40 mg Tamsulosin HCl (Flomax -) 0.4 mg PO 0830 [facility] Last Admin: 05/09/18 09:11 Dose: 0.4 mg Warfarin Sodium (Coumadin -) 3 mg PO 1800 [facility] Last Admin: 05/09/18 17:16 Dose: 3 mg - Objective Vital Signs: Vital Signs Temperature 97.8 F 05/10/18 05:57 Pulse Rate 72 05/10/18 05:57 Respiratory Rate 18 05/10/18 05:57 Blood Pressure 125/62 05/10/18 05:57 O2 Sat by Pulse Oximetry (%) 96 05/09/18 21:00 Constitutional: Yes: No Distress, Calm Eyes: Yes: Conjunctiva Clear Cardiovascular: Yes: Regular Rate and Rhythm Respiratory: Yes: CTA Bilaterally (wheezing improved- now clear.) Gastrointestinal: Yes: Soft Edema: No Neurological: Yes: Alert, Oriented ...Motor Strength: WNL Labs: CBC, BMP 05/10/18 06:00 05/10/18 06:00 INR, PTT INR 2.63 (0.83-1.09) H 05/08/18 07:20 Laboratory Tests 05/08/18 05/10/18 05/10/18 07:20 06:00 06:00 WBC 6.1 Hgb 12.5 Hct 38.0 Plt Count 172 INR 2.63 H Sodium 137 Potassium 4.7 BUN 29 H Creatinine 0.9 AST 26 ALT 48 Alkaline Phosphatase 51 Assessment/Plan A/P: Viral URI Chronic AF on Sotalol CAD Mild acute on chronic diastolic CHF- improved REC: 1. Continue Lasix 40 mg PO daily 2. Rx Viral URI as per PMD 3. Daily INR while on abx. Follow-up with cardiology as outpatient.
[2018-05-10] MEDS: TAMSULOSIN HCL 0.4 MG CAP PO SCH (08:56)
[2018-05-10] MEDS: PHENYTOIN NA EXTENDED 100 MG CAPSULE (FP) PO SCH ×2 (09:00→21:39)
[2018-05-10] MEDS: SOTALOL HCL 80 MG TABLET (FP) PO SCH ×2 (09:00→21:39)
[2018-05-10] MEDS: FUROSEMIDE 40 MG TABLET (FP) PO SCH (09:00)
[2018-05-10] MEDS: ASPIRIN 81 MG CHEWABLE TABLETS PO SCH (09:00)
[2018-05-10] MEDS: RAMIPRIL 2.5 MG CAPSULE (FP) PO SCH (09:00)
[2018-05-10] MEDS: FENOFIBRIC ACID 135 MG CAP PO SCH (09:00)
[2018-05-10] MEDS: SOLIFENACIN SUCCINATE 5 MG TAB (FP) PO SCH (09:01)
[2018-05-10] MEDS: MULTIVITAMINS (DAILY MVI) TABLET (FP) PO SCH (09:01)
[2018-05-10] MEDS ORDERED: INSULIN (NOVOLOG) ASPART 100 UNITS/ML 10ML VIAL ONE (11:45)
--- NOTE | 2018-05-10 12:04 | PN ---
Progress Note (short form) - Note Progress Note: PULMONARY States breathing is better, close to baseline. Has been ambulating. Vital Signs Period Temp Pulse Resp BP Sys/Andrews Pulse Ox Last 24 Hr 97.7 F-98.2 F 69-76 18-18 107-133/58-77 96-97 Gen: NAD in chair Heart: RRR Lung: decreased breath sounds at the bases, no wheezes Abd: soft, nontender Ext: no edema CBC, BMP 05/10/18 06:00 05/10/18 06:00 Active Medications Acetaminophen (Tylenol -) 650 mg PO Q6H PRN PRN Reason: FEVER Aspirin (Asa -) 81 mg PO DAILY [facility] Last Admin: 05/10/18 09:00 Dose: 81 mg Atorvastatin Calcium (Lipitor -) 40 mg PO HS [facility] Last Admin: 05/09/18 21:18 Dose: 40 mg Fenofibric Acid (Trilipix -) 135 mg PO DAILY [facility] Last Admin: 05/10/18 09:00 Dose: 135 mg Furosemide (Lasix -) 40 mg PO DAILY [facility] Last Admin: 05/10/18 09:00 Dose: 40 mg Guaifenesin (Robitussin -) 5 ml PO Q8H PRN PRN Reason: COUGH Last Admin: 05/08/18 22:20 Dose: 5 ml Insulin Aspart (Novolog Vial Sliding Scale -) 1 vial SQ [facility]; Protocol Last Admin: 05/10/18 11:51 Dose: 10 units Insulin Detemir (Levemir Vial) 10 units SQ [facility] Metformin HCl (Glucophage -) 1,000 mg PO BID@0700,1630 [facility] Last Admin: 05/10/18 06:35 Dose: 1,000 mg Methylprednisolone Sodium Succinate (Solu-Medrol -) 40 mg IVPUSH Q6H-IV [facility] Last Admin: 05/10/18 08:56 Dose: 40 mg Mirtazapine (Remeron -) 30 mg PO HS [facility] Last Admin: 05/09/18 21:18 Dose: 30 mg Multivitamins/Minerals/Vitamin C (Tab-A-Vit -) 1 tab PO DAILY [facility] Last Admin: 05/10/18 09:01 Dose: 1 tab Phenytoin Sodium (Dilantin -) 100 mg PO BID [facility] Last Admin: 05/10/18 09:00 Dose: 100 mg Ramipril (Altace -) 2.5 mg PO DAILY [facility] Last Admin: 05/10/18 09:00 Dose: 2.5 mg Sitagliptin Phosphate (Januvia -) 100 mg PO DAILY@0700 [facility] Last Admin: 05/10/18 06:35 Dose: 100 mg Solifenacin (Vesicare -) 5 mg PO DAILY [facility] Last Admin: 05/10/18 09:01 Dose: 5 mg Sotalol HCl (Betapace -) 40 mg PO BID [facility] Last Admin: 05/10/18 09:00 Dose: 40 mg Tamsulosin HCl (Flomax -) 0.4 mg PO 0830 [facility] Last Admin: 05/10/18 08:56 Dose: 0.4 mg Warfarin Sodium (Coumadin -) 3 mg PO 1800 [facility] Last Admin: 05/09/18 17:16 Dose: 3 mg A/P Acute COPD Exacerbation h/o Lung Ca s/p LLL lobectomy URI Atrial Fibrillation HTN DM - will decrease medrol to q12h - if continues to improve, can likely change steroids to PO prednisone 40mg daily and taper as outpt - inhaled bronchodilators - glucose control while on systemic steroids - rate control - continue anticoagulation
--- NOTE | 2018-05-10 12:04 | PN ---
Progress Note, Physician - Current Medication List Current Medications: Active Medications Acetaminophen (Tylenol -) 650 mg PO Q6H PRN PRN Reason: FEVER Aspirin (Asa -) 81 mg PO DAILY [facility] Last Admin: 05/10/18 09:00 Dose: 81 mg Atorvastatin Calcium (Lipitor -) 40 mg PO HS [facility] Last Admin: 05/09/18 21:18 Dose: 40 mg Fenofibric Acid (Trilipix -) 135 mg PO DAILY [facility] Last Admin: 05/10/18 09:00 Dose: 135 mg Furosemide (Lasix -) 40 mg PO DAILY [facility] Last Admin: 05/10/18 09:00 Dose: 40 mg Guaifenesin (Robitussin -) 5 ml PO Q8H PRN PRN Reason: COUGH Last Admin: 05/08/18 22:20 Dose: 5 ml Insulin Aspart (Novolog Vial Sliding Scale -) 1 vial SQ [facility]; Protocol Last Admin: 05/10/18 11:51 Dose: 10 units Insulin Detemir (Levemir Vial) 10 units SQ [facility] Metformin HCl (Glucophage -) 1,000 mg PO BID@0700,1630 [facility] Last Admin: 05/10/18 06:35 Dose: 1,000 mg Methylprednisolone Sodium Succinate (Solu-Medrol -) 40 mg IVPUSH Q6H-IV [facility] Last Admin: 05/10/18 08:56 Dose: 40 mg Mirtazapine (Remeron -) 30 mg PO [facility] Last Admin: 05/09/18 21:18 Dose: 30 mg Multivitamins/Minerals/Vitamin C (Tab-A-Vit -) 1 tab PO DAILY [facility] Last Admin: 05/10/18 09:01 Dose: 1 tab Phenytoin Sodium (Dilantin -) 100 mg PO BID [facility] Last Admin: 05/10/18 09:00 Dose: 100 mg Ramipril (Altace -) 2.5 mg PO DAILY [facility] Last Admin: 05/10/18 09:00 Dose: 2.5 mg Sitagliptin Phosphate (Januvia -) 100 mg PO DAILY@0700 [facility] Last Admin: 05/10/18 06:35 Dose: 100 mg Solifenacin (Vesicare -) 5 mg PO DAILY [facility] Last Admin: 05/10/18 09:01 Dose: 5 mg Sotalol HCl (Betapace -) 40 mg PO BID [facility] Last Admin: 05/10/18 09:00 Dose: 40 mg Tamsulosin HCl (Flomax -) 0.4 mg PO 0830 [facility] Last Admin: 05/10/18 08:56 Dose: 0.4 mg Warfarin Sodium (Coumadin -) 3 mg PO 1800 [facility] Last Admin: 05/09/18 17:16 Dose: 3 mg - Objective Vital Signs: Vital Signs Temperature 97.7 F 05/10/18 09:00 Pulse Rate 69 05/10/18 09:00 Respiratory Rate 18 05/10/18 09:00 Blood Pressure 133/77 05/10/18 09:00 O2 Sat by Pulse Oximetry (%) 97 05/10/18 08:59 Labs: CBC, BMP 05/10/18 06:00 05/10/18 06:00 INR, PTT INR 2.63 (0.83-1.09) H 05/08/18 07:20
[2018-05-10 18:39] LABS: INR 2.91 (0.83-1.09); PROTHROMBIN TIME (PATIENT) 34.7 SEC (9.7-13.0)
[2018-05-10] MEDS: WARFARIN NA 3 MG TABLET PO SCH (21:38)
[2018-05-10] MEDS: ATORVASTATIN CA 40 MG TABLET (FP) PO SCH (21:39)
[2018-05-10] MEDS: MIRTAZAPINE 30 MG TABLET (FP) PO SCH (21:39)
[2018-05-10] MEDS: INSULIN (LEVEMIR) 100 UNITS/ML UNITS SQ SCH (21:40)
--- NOTE | 2018-05-10 22:32 | PN ---
Progress Note, Physician History of Present Illness: No new complaints - Current Medication List Current Medications: Active Medications Acetaminophen (Tylenol -) 650 mg PO Q6H PRN PRN Reason: FEVER Aspirin (Asa -) 81 mg PO DAILY [facility] Last Admin: 05/10/18 09:00 Dose: 81 mg Atorvastatin Calcium (Lipitor -) 40 mg PO HS [facility] Last Admin: 05/10/18 21:39 Dose: 40 mg Fenofibric Acid (Trilipix -) 135 mg PO DAILY [facility] Last Admin: 05/10/18 09:00 Dose: 135 mg Furosemide (Lasix -) 40 mg PO DAILY [facility] Last Admin: 05/10/18 09:00 Dose: 40 mg Guaifenesin (Robitussin -) 5 ml PO Q8H PRN PRN Reason: COUGH Last Admin: 05/08/18 22:20 Dose: 5 ml Insulin Aspart (Novolog Vial Sliding Scale -) 1 vial SQ [facility]; Protocol Last Admin: 05/10/18 21:40 Dose: 6 units Insulin Detemir (Levemir Vial) 10 units SQ [facility] Last Admin: 05/10/18 21:40 Dose: 10 units Metformin HCl (Glucophage -) 1,000 mg PO BID@0700,1630 [facility] Last Admin: 05/10/18 17:15 Dose: 1,000 mg Methylprednisolone Sodium Succinate (Solu-Medrol -) 40 mg IVPUSH Q12H [facility] Last Admin: 05/10/18 21:41 Dose: 40 mg Mirtazapine (Remeron -) 30 mg PO [facility] Last Admin: 05/10/18 21:39 Dose: 30 mg Multivitamins/Minerals/Vitamin C (Tab-A-Vit -) 1 tab PO DAILY [facility] Last Admin: 05/10/18 09:01 Dose: 1 tab Phenytoin Sodium (Dilantin -) 100 mg PO BID [facility] Last Admin: 05/10/18 21:39 Dose: 100 mg Ramipril (Altace -) 2.5 mg PO DAILY [facility] Last Admin: 05/10/18 09:00 Dose: 2.5 mg Sitagliptin Phosphate (Januvia -) 100 mg PO DAILY@0700 [facility] Last Admin: 05/10/18 06:35 Dose: 100 mg Solifenacin (Vesicare -) 5 mg PO DAILY [facility] Last Admin: 05/10/18 09:01 Dose: 5 mg Sotalol HCl (Betapace -) 40 mg PO BID [facility] Last Admin: 05/10/18 21:39 Dose: 40 mg Tamsulosin HCl (Flomax -) 0.4 mg PO 0830 [facility] Last Admin: 05/10/18 08:56 Dose: 0.4 mg Warfarin Sodium (Coumadin -) 3 mg PO DAILY@1800 [facility] Last Admin: 05/10/18 21:38 Dose: 3 mg - Objective Vital Signs: Vital Signs Temperature 98.2 F 05/10/18 21:10 Pulse Rate 76 05/10/18 21:10 Respiratory Rate 18 05/10/18 21:10 Blood Pressure 126/79 05/10/18 21:10 O2 Sat by Pulse Oximetry (%) 97 05/10/18 08:59 Cardiovascular: Yes: WNL, Regular Rate and Rhythm Respiratory: Yes: WNL, Regular, CTA Bilaterally Gastrointestinal: Yes: WNL, Normal Bowel Sounds, Soft Labs: CBC, BMP 05/10/18 06:00 05/10/18 06:00 INR, PTT INR 2.91 (0.83-1.09) H 05/10/18 16:50 Problem List - Problems (1) Dyspnea Assessment/Plan: Due to COPD exacerbation Cont IV antibxs/nebulizers Cont IV solumedrol and taper as indicated Code(s): R06.00 - DYSPNEA, UNSPECIFIED (2) Acute on chronic diastolic (congestive) heart failure Assessment/Plan: Cont PO lasix Code(s): I50.33 - ACUTE ON CHRONIC DIASTOLIC (CONGESTIVE) HEART FAILURE (3) Paroxysmal a-fib Assessment/Plan: Cont coumadin Follow PT/INR Rate controlled Code(s): I48.0 - PAROXYSMAL ATRIAL FIBRILLATION (4) Diabetes Assessment/Plan: Cont sliding scale w/ coverage and levemir Glucose uncontrolled Probably due to steroids Code(s): E11.9 - TYPE 2 DIABETES MELLITUS WITHOUT COMPLICATIONS Qualifiers: Diabetes mellitus type: type 2 Diabetes mellitus complication status: without complication (5) HTN (hypertension) Assessment/Plan: BP stable Cont asa/lasix/ramipril Code(s): I10 - ESSENTIAL (PRIMARY) HYPERTENSION (6) Hyperlipidemia Assessment/Plan: Cont fenofibrate/lipitor Code(s): E78.5 - HYPERLIPIDEMIA, UNSPECIFIED (7) H/O: lung cancer Code(s): Z85.118 - PERSONAL HISTORY OF MALIGNANT NEOPLASM OF BRONCHUS AND LUNG (8) ASHD (arteriosclerotic heart disease) Code(s): I25.10 - ATHSCL HEART DISEASE OF [place] CORONARY ARTERY W/O ANG PCTRS (9) S/P CABG (coronary artery bypass graft) Code(s): Z95.1 - PRESENCE OF AORTOCORONARY BYPASS GRAFT (10) Seizure Code(s): R56.9 - UNSPECIFIED CONVULSIONS
[2018-05-11] MEDS: sitaGLIPtin PHOSPHATE 100 MG TABLET (FP) PO SCH (06:27)
[2018-05-11] MEDS: INSULIN SLIDING SCALE (NOVOLOG) 1 VIAL SQ SCH ×4 (06:28→21:58)
[2018-05-11] MEDS: metFORMIN HCL 500 MG TABLET (FP) PO SCH ×2 (06:28→17:28)
[2018-05-11 07:37] LABS: BASO % 0.2 % (0-2.0); EOS % 0.1 % (0-4.5); HEMATOCRIT 38.3 % (35.4-49); HEMOGLOBIN 12.5 GM/dL (11.7-16.9); LYMPH % 12.9 % (8-40); MCHC 32.5 g/dl (32.0-35.9); MEAN CELL VOLUME 95.4 fl (80-96); MEAN PLT VOLUME 9.7 fl (7.5-11.1); MONO % 8.5 % (3.8-10.2); NEUT % 78.3 % (42.8-82.8); PLATELET COUNT 200 K/MM3 (134-434); RBC 4.02 M/mm3 (4.00-5.60); RDW 14.3 % (11.9-15.9); WHITE BLOOD COUNT 7.3 K/mm3 (4.0-10.0)
[2018-05-11 07:56] LABS: ALBUMIN 3.3 g/dl (3.4-5.0); ALK PHOS 49 U/L (45-117); ANION GAP 7 MMOL/L (8-16); BILIRUBIN,TOTAL 0.4 mg/dL (0.2-1); BLOOD UREA NITROGEN 33 mg/dL (7-18); CALCIUM 9.1 mg/dL (8.5-10.1); CHLORIDE 100 mmol/L (98-107); CO2 29 mmol/L (21-32); CREATININE 0.9 mg/dL (0.55-1.3); GLUCOSE,RANDOM 280 mg/dL (74-106); POTASSIUM 4.5 mmol/L (3.5-5.1); SGOT/AST 21 U/L (15-37); SGPT/ALT 44 U/L (13-61); SODIUM 137 mmol/L (136-145); TOT PROT 6.6 g/dl (6.4-8.2)
[2018-05-11 07:57] LABS: INR 2.97 (0.83-1.09); PROTHROMBIN TIME (PATIENT) 35.4 SEC (9.7-13.0)
[2018-05-11] MEDS ORDERED: PT OWN MED DRAWER 7, Y5N ONE (08:52)
--- NOTE | 2018-05-11 08:54 | PN ---
Progress Note, Physician Chief Complaint: feeling better - Current Medication List Current Medications: Active Medications Acetaminophen (Tylenol -) 650 mg PO Q6H PRN PRN Reason: FEVER Aspirin (Asa -) 81 mg PO DAILY [facility] Last Admin: 05/10/18 09:00 Dose: 81 mg Atorvastatin Calcium (Lipitor -) 40 mg PO HS [facility] Last Admin: 05/10/18 21:39 Dose: 40 mg Fenofibric Acid (Trilipix -) 135 mg PO DAILY [facility] Last Admin: 05/10/18 09:00 Dose: 135 mg Furosemide (Lasix -) 40 mg PO DAILY [facility] Last Admin: 05/10/18 09:00 Dose: 40 mg Guaifenesin (Robitussin -) 5 ml PO Q8H PRN PRN Reason: COUGH Last Admin: 05/08/18 22:20 Dose: 5 ml Insulin Aspart (Novolog Vial Sliding Scale -) 1 vial SQ [facility]; Protocol Last Admin: 05/11/18 06:28 Dose: 6 units Insulin Detemir (Levemir Vial) 10 units SQ [facility] Last Admin: 05/10/18 21:40 Dose: 10 units Metformin HCl (Glucophage -) 1,000 mg PO BID@0700,1630 [facility] Last Admin: 05/11/18 06:28 Dose: 1,000 mg Methylprednisolone Sodium Succinate (Solu-Medrol -) 40 mg IVPUSH Q12H [facility] Last Admin: 05/10/18 21:41 Dose: 40 mg Mirtazapine (Remeron -) 30 mg PO [facility] Last Admin: 05/10/18 21:39 Dose: 30 mg Multivitamins/Minerals/Vitamin C (Tab-A-Vit -) 1 tab PO DAILY [facility] Last Admin: 05/10/18 09:01 Dose: 1 tab Phenytoin Sodium (Dilantin -) 100 mg PO BID [facility] Last Admin: 05/10/18 21:39 Dose: 100 mg Ramipril (Altace -) 2.5 mg PO DAILY [facility] Last Admin: 05/10/18 09:00 Dose: 2.5 mg Sitagliptin Phosphate (Januvia -) 100 mg PO DAILY@0700 [facility] Last Admin: 05/11/18 06:27 Dose: 100 mg Solifenacin (Vesicare -) 5 mg PO DAILY [facility] Last Admin: 05/10/18 09:01 Dose: 5 mg Sotalol HCl (Betapace -) 40 mg PO BID [facility] Last Admin: 05/10/18 21:39 Dose: 40 mg Tamsulosin HCl (Flomax -) 0.4 mg PO 0830 [facility] Last Admin: 05/10/18 08:56 Dose: 0.4 mg Warfarin Sodium (Coumadin -) 3 mg PO DAILY@1800 [facility] Last Admin: 05/10/18 21:38 Dose: 3 mg - Objective Vital Signs: Vital Signs Temperature 98.2 F 05/11/18 08:09 Pulse Rate 69 05/11/18 08:09 Respiratory Rate 18 05/11/18 08:09 Blood Pressure 115/70 05/11/18 08:09 O2 Sat by Pulse Oximetry (%) 96 05/11/18 08:09 Constitutional: Yes: Calm Cardiovascular: Yes: Pulse Irregular Respiratory: Yes: CTA Bilaterally (no wheezing) Gastrointestinal: Yes: Soft Edema: No Neurological: Yes: Alert, Oriented Labs: CBC, BMP 05/11/18 06:20 05/11/18 06:20 INR, PTT INR 2.97 (0.83-1.09) H 05/11/18 06:20 Laboratory Tests 05/11/18 05/11/18 05/11/18 06:20 06:20 06:20 WBC 7.3 Hgb 12.5 Plt Count 200 INR 2.97 H Sodium 137 Potassium 4.5 Creatinine 0.9 AST 21 ALT 44 Alkaline Phosphatase 49 - ....Imaging EKG: Image Reviewed Assessment/Plan A/P: Viral URI Chronic AF on Sotalol CAD Mild acute on chronic diastolic CHF- improved REC: 1. Continue Lasix 40 mg PO daily 2. Rx Viral URI as per PMD 3. Daily INR while on abx. 4. PO steroids as per Pulmonary
[2018-05-11] MEDS: FUROSEMIDE 40 MG TABLET (FP) PO SCH (09:03)
[2018-05-11] MEDS: TAMSULOSIN HCL 0.4 MG CAP PO SCH (09:03)
[2018-05-11] MEDS: PHENYTOIN NA EXTENDED 100 MG CAPSULE (FP) PO SCH ×2 (09:03→21:59)
[2018-05-11] MEDS: SOLIFENACIN SUCCINATE 5 MG TAB (FP) PO SCH (09:03)
[2018-05-11] MEDS: RAMIPRIL 2.5 MG CAPSULE (FP) PO SCH (09:03)
[2018-05-11] MEDS: methylPREDNISolone NA SUCC 40 MG/1 ML VIAL IVPUSH SCH (09:03)
[2018-05-11] MEDS: ASPIRIN 81 MG CHEWABLE TABLETS PO SCH (09:03)
[2018-05-11] MEDS: MULTIVITAMINS (DAILY MVI) TABLET (FP) PO SCH (09:03)
[2018-05-11] MEDS: SOTALOL HCL 80 MG TABLET (FP) PO SCH ×2 (09:03→21:59)
[2018-05-11] MEDS: FENOFIBRIC ACID 135 MG CAP PO SCH (09:04)
--- NOTE | 2018-05-11 11:34 | PN ---
Progress Note (short form) - Note Progress Note: PULMONARY States breathing is improved. Has been ambulating. Vital Signs Period Temp Pulse Resp BP Sys/Andrews Pulse Ox Last 24 Hr 98.2 F-98.6 F 65-76 14-18 99-130/58-79 96-96 Gen: NAD in chair Heart: RRR Lung: decreased breath sounds at the bases, no wheezes Abd: soft, nontender Ext: no edema CBC, BMP 05/11/18 06:20 05/11/18 06:20 Active Medications Acetaminophen (Tylenol -) 650 mg PO Q6H PRN PRN Reason: FEVER Aspirin (Asa -) 81 mg PO DAILY [facility] Last Admin: 05/11/18 09:03 Dose: 81 mg Atorvastatin Calcium (Lipitor -) 40 mg PO HS [facility] Last Admin: 05/10/18 21:39 Dose: 40 mg Fenofibric Acid (Trilipix -) 135 mg PO DAILY [facility] Last Admin: 05/11/18 09:04 Dose: 135 mg Furosemide (Lasix -) 40 mg PO DAILY [facility] Last Admin: 05/11/18 09:03 Dose: 40 mg Guaifenesin (Robitussin -) 5 ml PO Q8H PRN PRN Reason: COUGH Last Admin: 05/08/18 22:20 Dose: 5 ml Insulin Aspart (Novolog Vial Sliding Scale -) 1 vial SQ [facility]; Protocol Last Admin: 05/11/18 06:28 Dose: 6 units Insulin Detemir (Levemir Vial) 10 units SQ [facility] Last Admin: 05/10/18 21:40 Dose: 10 units Metformin HCl (Glucophage -) 1,000 mg PO BID@0700,1630 [facility] Last Admin: 05/11/18 06:28 Dose: 1,000 mg Methylprednisolone Sodium Succinate (Solu-Medrol -) 40 mg IVPUSH Q12H [facility] Last Admin: 05/11/18 09:03 Dose: 40 mg Mirtazapine (Remeron -) 30 mg PO [facility] Last Admin: 05/10/18 21:39 Dose: 30 mg Multivitamins/Minerals/Vitamin C (Tab-A-Vit -) 1 tab PO DAILY [facility] Last Admin: 05/11/18 09:03 Dose: 1 tab Phenytoin Sodium (Dilantin -) 100 mg PO BID [facility] Last Admin: 05/11/18 09:03 Dose: 100 mg Ramipril (Altace -) 2.5 mg PO DAILY [facility] Last Admin: 05/11/18 09:03 Dose: 2.5 mg Sitagliptin Phosphate (Januvia -) 100 mg PO DAILY@0700 [facility] Last Admin: 05/11/18 06:27 Dose: 100 mg Solifenacin (Vesicare -) 5 mg PO DAILY [facility] Last Admin: 05/11/18 09:03 Dose: 5 mg Sotalol HCl (Betapace -) 40 mg PO BID [facility] Last Admin: 05/11/18 09:03 Dose: 40 mg Tamsulosin HCl (Flomax -) 0.4 mg PO 0830 [facility] Last Admin: 05/11/18 09:03 Dose: 0.4 mg Warfarin Sodium (Coumadin -) 3 mg PO DAILY@1800 [facility] Last Admin: 05/10/18 21:38 Dose: 3 mg A/P Acute COPD Exacerbation h/o Lung Ca s/p LLL lobectomy URI Atrial Fibrillation HTN DM - can change steroids to PO prednisone 40mg daily and taper as outpt - inhaled bronchodilators - glucose control while on systemic steroids - rate control - continue anticoagulation - can d/c home from pulmonary standpoint with outpt f/u
[2018-05-11 12:53] VITALS: BMI 31.0
--- NOTE | 2018-05-11 14:34 | PN ---
Progress Note, Physician - Current Medication List Current Medications: Active Medications Acetaminophen (Tylenol -) 650 mg PO Q6H PRN PRN Reason: FEVER Aspirin (Asa -) 81 mg PO DAILY [facility] Last Admin: 05/11/18 09:03 Dose: 81 mg Atorvastatin Calcium (Lipitor -) 40 mg PO HS [facility] Last Admin: 05/10/18 21:39 Dose: 40 mg Fenofibric Acid (Trilipix -) 135 mg PO DAILY [facility] Last Admin: 05/11/18 09:04 Dose: 135 mg Furosemide (Lasix -) 40 mg PO DAILY [facility] Last Admin: 05/11/18 09:03 Dose: 40 mg Guaifenesin (Robitussin -) 5 ml PO Q8H PRN PRN Reason: COUGH Last Admin: 05/08/18 22:20 Dose: 5 ml Insulin Aspart (Novolog Vial Sliding Scale -) 1 vial SQ [facility]; Protocol Last Admin: 05/11/18 12:14 Dose: 4 units Insulin Detemir (Levemir Vial) 10 units SQ [facility] Last Admin: 05/10/18 21:40 Dose: 10 units Metformin HCl (Glucophage -) 1,000 mg PO BID@0700,1630 [facility] Last Admin: 05/11/18 06:28 Dose: 1,000 mg Mirtazapine (Remeron -) 30 mg PO [facility] Last Admin: 05/10/18 21:39 Dose: 30 mg Multivitamins/Minerals/Vitamin C (Tab-A-Vit -) 1 tab PO DAILY [facility] Last Admin: 05/11/18 09:03 Dose: 1 tab Phenytoin Sodium (Dilantin -) 100 mg PO BID [facility] Last Admin: 05/11/18 09:03 Dose: 100 mg Prednisone (Deltasone -) 40 mg PO DAILY [facility] Ramipril (Altace -) 2.5 mg PO DAILY [facility] Last Admin: 05/11/18 09:03 Dose: 2.5 mg Sitagliptin Phosphate (Januvia -) 100 mg PO DAILY@0700 [facility] Last Admin: 05/11/18 06:27 Dose: 100 mg Solifenacin (Vesicare -) 5 mg PO DAILY [facility] Last Admin: 05/11/18 09:03 Dose: 5 mg Sotalol HCl (Betapace -) 40 mg PO BID [facility] Last Admin: 05/11/18 09:03 Dose: 40 mg Tamsulosin HCl (Flomax -) 0.4 mg PO 0830 [facility] Last Admin: 05/11/18 09:03 Dose: 0.4 mg Warfarin Sodium (Coumadin -) 3 mg PO DAILY@1800 [facility] Last Admin: 05/10/18 21:38 Dose: 3 mg - Objective Vital Signs: Vital Signs Temperature 98.2 F 05/11/18 08:09 Pulse Rate 69 05/11/18 08:09 Respiratory Rate 18 05/11/18 08:09 Blood Pressure 115/70 05/11/18 08:09 O2 Sat by Pulse Oximetry (%) 96 05/11/18 08:09 Labs: CBC, BMP 05/11/18 06:20 05/11/18 06:20 INR, PTT INR 2.97 (0.83-1.09) H 05/11/18 06:20
[2018-05-11] MEDS: WARFARIN NA 3 MG TABLET PO SCH (17:28)
--- NOTE | 2018-05-11 19:02 | PN ---
Progress Note, Physician - Current Medication List Current Medications: Active Medications Acetaminophen (Tylenol -) 650 mg PO Q6H PRN PRN Reason: FEVER Aspirin (Asa -) 81 mg PO DAILY [facility] Last Admin: 05/11/18 09:03 Dose: 81 mg Atorvastatin Calcium (Lipitor -) 40 mg PO HS [facility] Last Admin: 05/10/18 21:39 Dose: 40 mg Fenofibric Acid (Trilipix -) 135 mg PO DAILY [facility] Last Admin: 05/11/18 09:04 Dose: 135 mg Furosemide (Lasix -) 40 mg PO DAILY [facility] Last Admin: 05/11/18 09:03 Dose: 40 mg Guaifenesin (Robitussin -) 5 ml PO Q8H PRN PRN Reason: COUGH Last Admin: 05/08/18 22:20 Dose: 5 ml Insulin Aspart (Novolog Vial Sliding Scale -) 1 vial SQ [facility]; Protocol Last Admin: 05/11/18 17:27 Dose: 6 units Insulin Detemir (Levemir Vial) 10 units SQ [facility] Last Admin: 05/10/18 21:40 Dose: 10 units Metformin HCl (Glucophage -) 1,000 mg PO BID@0700,1630 [facility] Last Admin: 05/11/18 17:28 Dose: 1,000 mg Mirtazapine (Remeron -) 30 mg PO [facility] Last Admin: 05/10/18 21:39 Dose: 30 mg Multivitamins/Minerals/Vitamin C (Tab-A-Vit -) 1 tab PO DAILY [facility] Last Admin: 05/11/18 09:03 Dose: 1 tab Phenytoin Sodium (Dilantin -) 100 mg PO BID [facility] Last Admin: 05/11/18 09:03 Dose: 100 mg Prednisone (Deltasone -) 40 mg PO DAILY [facility] Ramipril (Altace -) 2.5 mg PO DAILY [facility] Last Admin: 05/11/18 09:03 Dose: 2.5 mg Sitagliptin Phosphate (Januvia -) 100 mg PO DAILY@0700 [facility] Last Admin: 05/11/18 06:27 Dose: 100 mg Solifenacin (Vesicare -) 5 mg PO DAILY [facility] Last Admin: 05/11/18 09:03 Dose: 5 mg Sotalol HCl (Betapace -) 40 mg PO BID [facility] Last Admin: 05/11/18 09:03 Dose: 40 mg Tamsulosin HCl (Flomax -) 0.4 mg PO 0830 [facility] Last Admin: 05/11/18 09:03 Dose: 0.4 mg Warfarin Sodium (Coumadin -) 3 mg PO DAILY@1800 [facility] Last Admin: 05/11/18 17:28 Dose: 3 mg - Objective Vital Signs: Vital Signs Temperature 98.2 F 05/11/18 16:40 Pulse Rate 78 05/11/18 16:40 Respiratory Rate 18 05/11/18 16:40 Blood Pressure 118/76 05/11/18 16:40 O2 Sat by Pulse Oximetry (%) 96 05/11/18 08:09 Labs: CBC, BMP 05/11/18 06:20 05/11/18 06:20 INR, PTT INR 2.97 (0.83-1.09) H 05/11/18 06:20 Problem List - Problems (1) Dyspnea Code(s): R06.00 - DYSPNEA, UNSPECIFIED (2) Acute on chronic diastolic (congestive) heart failure Code(s): I50.33 - ACUTE ON CHRONIC DIASTOLIC (CONGESTIVE) HEART FAILURE (3) Paroxysmal a-fib Code(s): I48.0 - PAROXYSMAL ATRIAL FIBRILLATION (4) Diabetes Code(s): E11.9 - TYPE 2 DIABETES MELLITUS WITHOUT COMPLICATIONS Qualifiers: Diabetes mellitus type: type 2 Diabetes mellitus complication status: without complication (5) HTN (hypertension) Code(s): I10 - ESSENTIAL (PRIMARY) HYPERTENSION (6) Hyperlipidemia Code(s): E78.5 - HYPERLIPIDEMIA, UNSPECIFIED (7) H/O: lung cancer Code(s): Z85.118 - PERSONAL HISTORY OF MALIGNANT NEOPLASM OF BRONCHUS AND LUNG (8) ASHD (arteriosclerotic heart disease) Code(s): I25.10 - ATHSCL HEART DISEASE OF [place] CORONARY ARTERY W/O ANG PCTRS (9) S/P CABG (coronary artery bypass graft) Code(s): Z95.1 - PRESENCE OF AORTOCORONARY BYPASS GRAFT (10) Seizure Code(s): R56.9 - UNSPECIFIED CONVULSIONS
[2018-05-11] MEDS: INSULIN (LEVEMIR) 100 UNITS/ML UNITS SQ SCH (21:58)
[2018-05-11] MEDS: ATORVASTATIN CA 40 MG TABLET (FP) PO SCH (21:59)
[2018-05-11] MEDS: MIRTAZAPINE 30 MG TABLET (FP) PO SCH (21:59)
[2018-05-12] MEDS: INSULIN SLIDING SCALE (NOVOLOG) 1 VIAL SQ SCH ×2 (06:32→11:47)
[2018-05-12] MEDS: metFORMIN HCL 500 MG TABLET (FP) PO SCH (06:33)
[2018-05-12] MEDS: sitaGLIPtin PHOSPHATE 100 MG TABLET (FP) PO SCH (06:33)
[2018-05-12] MEDS ORDERED: INSULIN (LEVEMIR) 100 UNITS/ML UNITS SQ ONE (06:47)
[2018-05-12] MEDS ORDERED: PT OWN MED DRAWER 7, Y5N ONE (09:10)
[2018-05-12] MEDS: ASPIRIN 81 MG CHEWABLE TABLETS PO SCH (09:14)
[2018-05-12] MEDS: TAMSULOSIN HCL 0.4 MG CAP PO SCH (09:14)
[2018-05-12] MEDS: FUROSEMIDE 40 MG TABLET (FP) PO SCH (09:14)
[2018-05-12] MEDS: PHENYTOIN NA EXTENDED 100 MG CAPSULE (FP) PO SCH (09:15)
[2018-05-12] MEDS: RAMIPRIL 2.5 MG CAPSULE (FP) PO SCH (09:15)
[2018-05-12] MEDS: SOLIFENACIN SUCCINATE 5 MG TAB (FP) PO SCH (09:15)
[2018-05-12] MEDS: SOTALOL HCL 80 MG TABLET (FP) PO SCH (09:15)
[2018-05-12] MEDS: MULTIVITAMINS (DAILY MVI) TABLET (FP) PO SCH (09:16)
[2018-05-12] MEDS: FENOFIBRIC ACID 135 MG CAP PO SCH (09:16)
[2018-05-12] MEDS ORDERED: predniSONE 20 MG TABLET (UD) PO SCH (10:00)
[2018-05-12 10:25] VITALS: BP 107/49; PULSE 67; TEMP 97.9
[2018-05-12] MEDS ORDERED: INSULIN (NOVOLOG) ASPART 100 UNITS/ML 10ML VIAL ONE (11:35)
== END 2018-05-12 15:29 | disposition home or self-care (01) | DRG 190 ==
LOC: JER 16:17 → JERBED 17:45 → J4S 21:06
PROVIDERS: ADMIT Internal Medicine; ATTEND Internal Medicine
DX: J44.1 Chronic obstructive pulmonary disease with (acute) exacerbation (principal); I50.33 Acute on chronic diastolic (congestive) heart failure; I11.0 Hypertensive heart disease with heart failure; I48.0 Paroxysmal atrial fibrillation; E78.5 Hyperlipidemia, unspecified; I25.10 Atherosclerotic heart disease of native coronary artery without angina pectoris; Z95.1 Presence of aortocoronary bypass graft; J06.9 Acute upper respiratory infection, unspecified; Z85.118 Personal history of other malignant neoplasm of bronchus and lung; Z98.61 Coronary angioplasty status; E11.9 Type 2 diabetes mellitus without complications
CPT/HCPCS: 36415; 71046-TC-FY; 71250-TC; 80048; 80053; 81003; 82550; 82962; 83735; 83880; 84484; 85025; 85610; 85730; 87040; 87086; 93005; 93010; 99283-25; 99284-25

== ENCOUNTER 2019-01-31 14:45 | Inpatient (IN) | payer OTHER, BC ==
[2019-01-31 15:41] VITALS: BMI 32.3
--- NOTE | 2019-01-31 16:00 | PDOC ---
History of Present Illness - General Chief Complaint: Chest Pain Stated Complaint: CHEST PAIN Time Seen by Provider: 01/31/19 15:25 History Source: Patient Exam Limitations: No Limitations - History of Present Illness Initial Comments: 01/31/19 17:02 73 yo M with a hx of afib substernal chest pain center with radiation to the jaw and teeth lasting for 1 hour. He took 1 nitro, no effect, 2nd nitro no effect. took advil with no relief. [place] similar to last angina pain but with new onset quality. No diaphoresis, no nausea, vomiting, back pain, and extremity pain. Endorses mild SOB. Currently asymptomatic. No trauma. Allergies: PCN, sulfa Social: Former smoker 30 years ago, no alcohol and no substance abuse 01/31/19 19:52 Past History - Past Medical History Allergies/Adverse Reactions: Allergies Allergy/AdvReac Type Severity Reaction Status Date / Time sulfite Allergy Severe Difficulty Verified 01/31/19 15:41 Breathing Penicillins Allergy Intermediate Swelling Verified 01/31/19 15:41 mandarin orange Allergy Uncoded 01/31/19 15:41 Home Medications: Ambulatory Orders Fenofibrate [Fenofibrate -] 145 mg PO DAILY 10/14/13 Multivitamins [Multivit ([facility] Formulary)] 1 tab PO DAILY 11/24/14 Oxybutynin Chloride [Ditropan Xl] 10 mg PO DAILY 02/09/16 Allopurinol [Zyloprim -] 100 mg PO BID #60 tablet 02/17/16 Atorvastatin Ca [Lipitor] 40 mg PO HS #30 tablet 02/17/16 Mirtazapine [Remeron -] 30 mg PO HS #30 tablet 02/17/16 Phenytoin Na Extended [Dilantin -] 100 mg PO BID #60 capsule 02/17/16 Ramipril [Altace] 2.5 mg PO DAILY #30 capsule 02/17/16 Tamsulosin HCl [Flomax -] 0.4 mg PO DAILY #30 cap.er.24h 02/17/16 Insulin Detemir [Levemir Flextouch] 5 unit SQ BID PRN 03/26/16 Metoclopramide HCl 5 mg PO DAILY PRN 03/26/16 [place]-3 Fatty Acids [Fish Oil] 1,200 mg PO DAILY 03/26/16 Sotalol HCl [Betapace -] 40 mg PO BID 03/26/16 Warfarin Na [Coumadin -] 3 mg PO HS 03/26/16 Aspirin [ASA -] 81 mg PO DAILY tab.chew 05/12/18 Furosemide [Lasix -] 40 mg PO DAILY tablet 05/12/18 Warfarin Na [Coumadin -] 3 mg PO DAILY@1800 tablet 05/12/18 predniSONE [Deltasone -] 10 mg PO DAILY #20 tablet 05/12/18 Anemia: No Asthma: Yes Cancer: Yes (lung ca) Cardiac Disorders: Yes (afib) CVA: Yes (probable TIAs) COPD: Yes CHF: No Dementia: No Diabetes: Yes GI Disorders: No Disorders: Yes (1 kidney, kidney stones 2007) HTN: Yes Hypercholesterolemia: Yes Liver Disease: No Seizures: Yes Thyroid Disease: No - Surgical History Abdominal Surgery: No Appendectomy: No Cardiac Surgery: Yes (CABG stent x 4 2008) Cholecystectomy: No Lung Surgery: Yes (lt lower lobe) Neurologic Surgery: No Orthopedic Surgery: No - Immunization History Td Vaccination: No TDAP Vaccination: No Immunization Up to Date: Yes - Suicide/Smoking/Psychosocial Hx Smoking Status: Yes Smoking History: Former smoker Have you smoked in the past 12 months: No Number of Cigarettes Smoked Daily: 0 If you are a former smoker, when did you quit?: 40 YEARS AGO Information on smoking cessation initiated: No Hx Alcohol Use: No Drug/Substance Use Hx: No Substance Use Type: None Hx Substance Use Treatment: No *Physical Exam - Vital Signs Last Vital Signs Temp Pulse Resp BP Pulse Ox 97 F L 88 16 112/76 96 01/31/19 14:45 01/31/19 14:45 01/31/19 14:45 01/31/19 14:45 01/31/19 14:45 ED Treatment Course - LABORATORY CBC & Chemistry Diagram: 01/31/19 16:50 01/31/19 16:50 *DC/Admit/Observation/Transfer - Referrals Referrals: Bronson Yung MD [Primary Care Provider] - - Patient Instructions - Post Discharge Activity
[2019-01-31] MEDS ORDERED: ASPIRIN 81 MG CHEWABLE TABLETS PO ONE (16:02)
[2019-01-31] MEDS ORDERED: ASPIRIN 81 MG CHEWABLE TABLETS ONE (16:36)
--- NOTE | 2019-01-31 16:41 | PDOC ---
Documentation entered by Amara Lomeli SCRIBE, acting as scribe for Tobi Agee MD. Tobi Agee MD: This documentation has been prepared by the scribe, Amara Lomeli SCRIBE, under my direction and personally reviewed by me in its entirety. I confirm that the documentation accurately reflects all work, treatment, procedures, and medical decision making performed by me. Attending Attestation - Resident Resident Name: Nathan Ashraf - ED Attending Attestation I have performed the following: I have examined & evaluated the patient, The case was reviewed & discussed with the resident, I agree w/resident's findings & plan - HPI HPI: 01/31/19 16:28 73y/o M h/o extensive CAD with stents, lunca ca s/p resection on left, afib on eliquis p/w chest pain today. Anginal equivalent in post-prandial setting but not relieved with nitro or advil so presents for evaluation. Unusual for patient to have chest pain. Last stress 01/2018 showed known chronic defect. at baseline, [place] even walking around hallway of his building, this is unchanged without new orthopnea/f/c/cough. described as substernal pain radiating to neck, + associated SOB. currently symptom free since arrival in ED. - Physicial Exam PE: 01/31/19 16:39 Vital signs stable Well-appearing and comfortable lying in stretcher, smiling and conversant No JVD Heart is irregular with normal rate Slight crackles at the left base, otherwise good air entry. Left thoracotomy incisional scar noted. Abdomen benign Trace pretibial edema, no calf tenderness - Medical Decision Making 01/31/19 16:39 73-year-old male with extensive CAD history with stents presents with chest pain at rest, lasted about 1 hour and resolved after 2 nitroglycerin. Baseline limited exercise tolerance, no evidence of infectious process. Most concerning for ACS, no recent PE risk factors and is anticoagulated on eliquis. labs ekg, cxr asa admit. Dr. Lynn is clammer, will consult Heart Score/ECG Review #1 ECG reviewed & interpreted by me at: 15:08 General ECG Interpretation: Normal Rate (afib at 61), Normal Intervals (qtc 457 , RBBB), No acute ischemic changes Compared to previous ECG there are: No significant change (c/w 05/06)
[2019-01-31 17:03] LABS: BASO % 0.5 % (0-2.0); EOS % 1.6 % (0-4.5); HEMATOCRIT 35.8 % (35.4-49); LYMPH % 16.7 % (8-40); MCH 31.3 pg (25.7-33.7); MCHC 33.5 g/dl (32.0-35.9); MEAN CELL VOLUME 93.6 fl (80-96); MEAN PLT VOLUME 10.5 fl (7.5-11.1); MONO % 10.1 % (3.8-10.2); NEUT % 71.1 % (42.8-82.8); PLATELET COUNT 245 K/MM3 (134-434); RBC 3.83 M/mm3 (4.00-5.60); RDW 14.9 % (11.9-15.9); WHITE BLOOD COUNT 5.5 K/mm3 (4.0-10.0)
[2019-01-31 17:21] LABS: INR 1.7 (0.83-1.09); PROTHROMBIN TIME (PATIENT) 20.2 SEC (9.7-13.0)
[2019-01-31 17:50] LABS: ALBUMIN 3.7 g/dl (3.4-5.0); BILIRUBIN,TOTAL 0.6 mg/dL (0.2-1); BLOOD UREA NITROGEN 23.8 mg/dL (7-18); CALCIUM 9.4 mg/dL (8.5-10.1); CREATININE 1.2 mg/dL (0.55-1.3)
[2019-01-31] MEDS ORDERED: INSULIN (LEVEMIR) 100 UNITS/ML UNITS SQ PRN (23:03)
[2019-01-31] MEDS ORDERED: METOCLOPRAMIDE HCL 10 MG TABLET (FP) PO PRN (23:03)
[2019-02-01] MEDS: PHENYTOIN NA EXTENDED 100 MG CAPSULE (FP) PO SCH ×3 (01:12→22:26)
[2019-02-01] MEDS: SOTALOL HCL 80 MG TABLET (FP) PO SCH ×3 (01:12→22:26)
[2019-02-01 06:26] LABS: BASO % 0.8 % (0-2.0); EOS % 2.2 % (0-4.5); HEMATOCRIT 33.3 % (35.4-49); HEMOGLOBIN 11.3 GM/dL (11.7-16.9); MCH 31.4 pg (25.7-33.7); MEAN CELL VOLUME 92.2 fl (80-96); MONO % 11.6 % (3.8-10.2); NEUT % 64.4 % (42.8-82.8); PLATELET COUNT 150 K/MM3 (134-434); RBC 3.61 M/mm3 (4.00-5.60); RDW 14.2 % (11.9-15.9); WHITE BLOOD COUNT 4.5 K/mm3 (4.0-10.0)
[2019-02-01 06:41] LABS: INR 1.61 (0.83-1.09); PROTHROMBIN TIME (PATIENT) 19.1 SEC (9.7-13.0)
[2019-02-01 06:54] LABS: ALBUMIN 3.4 g/dl (3.4-5.0); ALK PHOS 35 U/L (45-117); ANION GAP 6 MMOL/L (8-16); BILIRUBIN,TOTAL 0.5 mg/dL (0.2-1); BLOOD UREA NITROGEN 20.7 mg/dL (7-18); CALCIUM 8.8 mg/dL (8.5-10.1); CHLORIDE 109 mmol/L (98-107); CO2 28 mmol/L (21-32); CREATININE 0.9 mg/dL (0.55-1.3); GLUCOSE,RANDOM 99 mg/dL (74-106); POTASSIUM 3.8 mmol/L (3.5-5.1); SGOT/AST 22 U/L (15-37); SGPT/ALT 25 U/L (13-61); SODIUM 143 mmol/L (136-145); TOT PROT 6.2 g/dl (6.4-8.2)
[2019-02-01] MEDS: TAMSULOSIN HCL 0.4 MG CAP PO SCH (08:56)
[2019-02-01] MEDS ORDERED: PT OWN MED DRAWER 7, Y5N ONE ×3 (09:51→22:17)
[2019-02-01] MEDS: ALLOPURINOL 100 MG TABLET (FP) PO SCH ×2 (09:58→22:24)
[2019-02-01] MEDS: RAMIPRIL 2.5 MG CAPSULE (FP) PO SCH (09:58)
[2019-02-01] MEDS: ASPIRIN 81 MG CHEWABLE TABLETS PO SCH (09:58)
[2019-02-01] MEDS: MULTIVITAMINS (DAILY MVI) TABLET (FP) PO SCH (09:59)
[2019-02-01] MEDS ORDERED: FUROSEMIDE 40 MG TABLET (FP) PO SCH (10:00)
[2019-02-01] MEDS ORDERED: FUROSEMIDE 40 MG/4 ML INJECTABLE VIAL IVPUSH SCH (10:00)
--- NOTE | 2019-02-01 10:56 | CON.CARD ---
Consult Consult Specialty:: Cardiology Referred by:: Medicine Reason for Consultation:: chest pain - History of Present Illness Chief Complaint: chest pain/jaw pain History of Present Illness: 73M h/o CAD s/p stents, lung CA s/p L resection, afib on eliquis and sotalol p/ w chest pain. Initially thought was reflux, felt tight in throat after eating, then later felt pain radiating to jaw and chest which felt like prior angina. Took nitro x 2 didn't improve, also took advil. Episode lasted [address] Lynn for cardio. Stable dyspnea on exertion. No orthopnea, edema, PND, palps. Saw Dr. Lynn last week with no recent changes in management - Past Medical History [employer]: Yes: Seizure Cardio/Vascular: Yes: AFIB, CAD, CHF, HTN, VT, Hyperlipdemia Pulmonary: Yes: COPD, Cancer Psych: Yes: Anxiety Musculoskeletal: Yes: Chronic low back pain Rheumatology: Yes: Gout Endocrine: Yes: Diabetes Mellitus - Past Surgical History Past Surgical History: Yes: Stent, CABG - Alcohol/Substance Use Hx Alcohol Use: No - Smoking History Smoking history: Former smoker Have you smoked in the past 12 months: No Aproximately how many cigarettes per day: 0 If you are a former smoker, when did you quit?: 40 YEARS AGO - Social History ADL: Independent History of Recent Travel: No Home Medications - Allergies Allergies/Adverse Reactions: Allergies Allergy/AdvReac Type Severity Reaction Status Date / Time sulfite Allergy Severe Difficulty Verified 01/31/19 15:41 Breathing Penicillins Allergy Intermediate Swelling Verified 01/31/19 15:41 mandarin orange Allergy Uncoded 01/31/19 15:41 - Home Medications Home Medications: Ambulatory Orders Fenofibrate [Fenofibrate -] 145 mg PO DAILY 10/14/13 Multivitamins [Multivit ([facility] Formulary)] 1 tab PO DAILY 11/24/14 Oxybutynin Chloride [Ditropan Xl] 10 mg PO DAILY 02/09/16 Allopurinol [Zyloprim -] 100 mg PO BID #60 tablet 02/17/16 Atorvastatin Ca [Lipitor] 40 mg PO HS #30 tablet 02/17/16 Mirtazapine [Remeron -] 30 mg PO HS #30 tablet 02/17/16 Phenytoin Na Extended [Dilantin -] 100 mg PO BID #60 capsule 02/17/16 Ramipril [Altace] 2.5 mg PO DAILY #30 capsule 02/17/16 Tamsulosin HCl [Flomax -] 0.4 mg PO DAILY #30 cap.er.24h 02/17/16 Insulin Detemir [Levemir Flextouch] 5 unit SQ BID PRN 03/26/16 Metoclopramide HCl 5 mg PO DAILY PRN 03/26/16 [place]-3 Fatty Acids [Fish Oil] 1,200 mg PO DAILY 03/26/16 Sotalol HCl [Betapace -] 40 mg PO BID 03/26/16 Warfarin Na [Coumadin -] 3 mg PO HS 03/26/16 Aspirin [ASA -] 81 mg PO DAILY tab.chew 05/12/18 Furosemide [Lasix -] 40 mg PO DAILY tablet 05/12/18 Warfarin Na [Coumadin -] 3 mg PO DAILY@1800 tablet 05/12/18 predniSONE [Deltasone -] 10 mg PO DAILY #20 tablet 05/12/18 Family Disease History - Family Disease History Family History: Unremarkable Review of Systems - Review of Systems Constitutional: reports: No Symptoms Eyes: reports: No Symptoms HENT: reports: No Symptoms Neck: reports: No Symptoms Cardiovascular: reports: No Symptoms Respiratory: reports: No Symptoms Gastrointestinal: reports: No Symptoms Genitourinary: reports: No Symptoms Musculoskeletal: reports: No Symptoms Integumentary: reports: No Symptoms Neurological: reports: No Symptoms Endocrine: reports: No Symptoms Hematology/Lymphatic: reports: No Symptoms Psychiatric: reports: No Symptoms Vital Signs: Vital Signs Temperature 97.4 F L 02/01/19 00:10 Pulse Rate 62 02/01/19 04:00 Respiratory Rate 18 02/01/19 04:56 Blood Pressure 135/81 02/01/19 04:00 O2 Sat by Pulse Oximetry (%) 97 02/01/19 04:56 Constitutional: Yes: Well Nourished, No Distress, Calm Eyes: Yes: Conjunctiva Clear, EOM Intact HENT: Yes: Atraumatic, Normocephalic Neck: Yes: Supple, Trachea Midline Respiratory: Yes: Regular, CTA Bilaterally Gastrointestinal: Yes: Normal Bowel Sounds, Soft Cardiovascular: Yes: Pulse Irregular JVD: No Carotid Bruit: No PMI: Non-Displaced Heart Sounds: Yes: S1, S2 Musculoskeletal: No: Back Pain Extremities: No: Cold Edema: No Peripheral Pulses WNL: Yes Peripheral Pulses: 2+ Left Doralis Pedis, 2+ Right Dorsalis Pedis Integumentary: No: Jaundice Neurological: Yes: Alert, Oriented Psychiatric: No: Agitated - Other Data Labs, Other Data: CBC, BMP 02/01/19 05:40 02/01/19 05:40 INR, PTT INR 1.61 (0.83-1.09) H 02/01/19 05:40 Troponin, BNP 01/31/19 01/31/19 16:50 16:50 Troponin I < 0.02 B-Natriuretic Peptide 2233.7 H Troponin, BNP 01/31/19 01/31/19 16:50 16:50 Troponin I < 0.02 B-Natriuretic Peptide 2233.7 H Assessment/Plan EKG: afib, RBBB CXR: no acute process tele: afib, rate controlled Chest/jaw pain, CAD, s/p VT, CABG - trop neg x 1, second pending - echo pending - given history of CAD/stents with sensation similar to prior angina, will evaluate with nuclear stress test if follow up trop negative - monitoring on tele - continue aspirin, statin afib - rate controlled - continue warfarin, sotalol HLD - cont statin DM - manage per primary
--- NOTE | 2019-02-01 12:43 | ECHO ---
Version: 1 Name: SHEN FLORES Exam: Adult Echocardiogram Study Date: 02/01/2019, 7:50 AM Age: 73 Years MMode/2D Measurements & Calculations IVSd: 0.95 cm LVIDs: 3.2 cm LVIDd: 3.9 cm LVPWd: 0.90 cm ACS: 0.85 cm Ao root diam: 4.0 cm LA dimension: 4.1 cm Doppler Measurements & Calculations MV E max jozef: 88.4 cm/sec Med E/e': 14.1 Lat E/e': 4.1 Med Peak E' Jozef: 6.3 cm/sec Lat Peak E' Jozef: 21.4 cm/sec MR max P.8 mmHg Ao max P.4 mmHg Ao mean P.3 mmHg Ao V2 max: 136.4 cm/sec TR max jozef: 273.4 cm/sec TR max P.1 mmHg Procedure A complete two-dimensional transthoracic echocardiogram was performed (2D, M-mode, Doppler and color flow Doppler). The study was technically difficult with many images being suboptimal in quality. Left Ventricle The left ventricle is normal in structure and function. Ejection Fraction = 55%. Right Ventricle The right ventricle is normal in size and function. Atria Normal left and right atrial size and function. Mitral Valve The mitral valve is normal in structure and function. There is mild mitral regurgitation. Tricuspid Valve The tricuspid valve is normal in structure and function. There is mild tricuspid regurgitation. Righ t ventricular systolic pressure is elevated at 40 mmhg. There is mild pulmonary hypertension. Aortic Valve There is moderate aortic sclerosis.;. No hemodynamically significant valvular aortic stenosis. Pulmonic Valve The pulmonic valve is not well visualized. Great Vessels The aortic root is normal size. Pericardium/Pleura There is no pericardial effusion. Summary Statements The left ventricle is normal in structure and function. The right ventricle is normal in size and function. There is mild pulmonary hypertension. [place] Delilah 02/01/2019, 11:42 AM Ordering Physician: Judy Neri Referring Physician: Judy Neri Performed By: Diamond Dempsey
--- NOTE | 2019-02-01 14:44 | EKG ---
Test Reason : Blood Pressure : / mmHG Vent. Rate : 061 BPM Atrial Rate : 062 BPM P-R Int : 000 ms QRS Dur : 144 ms QT Int : 454 ms P-R-T Axes : 000 255 -32 degrees QTc Int : 457 ms POOR DATA QUALITY, INTERPRETATION MAY BE ADVERSELY AFFECTED ATRIAL FIBRILLATION RIGHT BUNDLE BRANCH BLOCK ABNORMAL ECG WHEN COMPARED WITH ECG OF 04-MAY-2018 16:38, NO SIGNIFICANT CHANGE WAS FOUND Confirmed by Jacques Marina MD ([id number]) on 02/01/2019 2:43:30 PM Referred By: Confirmed By:Jacques Marina MD
--- NOTE | 2019-02-01 17:02 | HP ---
Admitting History and Physical - Past Medical History [employer]: Yes: Seizure Cardiovascular: Yes: AFIB, CAD, CHF, HTN, [place], Hyperlipdemia Pulmonary: Yes: COPD, Cancer Psych: Yes: Anxiety Musculoskeletal: Yes: Chronic low back pain Rheumatology: Yes: Gout Endocrine: Yes: Diabetes Mellitus - Past Surgical History Past Surgical History: Yes: Stent, CABG - Smoking History Smoking history: Former smoker Have you smoked in the past 12 months: No Aproximately how many cigarettes per day: 0 If you are a former smoker, when did you quit?: 40 YEARS AGO - Alcohol/Substance Use Hx Alcohol Use: No - Social History ADL: Independent History of Recent Travel: No Home Medications - Allergies Allergies/Adverse Reactions: Allergies Allergy/AdvReac Type Severity Reaction Status Date / Time sulfite Allergy Severe Difficulty Verified 01/31/19 15:41 Breathing Penicillins Allergy Intermediate Swelling Verified 01/31/19 15:41 mandarin orange Allergy Uncoded 01/31/19 15:41 - Home Medications Home Medications: Ambulatory Orders Fenofibrate [Fenofibrate -] 145 mg PO DAILY 10/14/13 Multivitamins [Multivit ([facility] Formulary)] 1 tab PO DAILY 11/24/14 Oxybutynin Chloride [Ditropan Xl] 10 mg PO DAILY 02/09/16 Allopurinol [Zyloprim -] 100 mg PO BID #60 tablet 02/17/16 Atorvastatin Ca [Lipitor] 40 mg PO HS #30 tablet 02/17/16 Mirtazapine [Remeron -] 30 mg PO HS #30 tablet 02/17/16 Phenytoin Na Extended [Dilantin -] 100 mg PO BID #60 capsule 02/17/16 Ramipril [Altace] 2.5 mg PO DAILY #30 capsule 02/17/16 Tamsulosin HCl [Flomax -] 0.4 mg PO DAILY #30 cap.er.24h 02/17/16 Insulin Detemir [Levemir Flextouch] 5 unit SQ BID PRN 03/26/16 Metoclopramide HCl 5 mg PO DAILY PRN 03/26/16 [place]-3 Fatty Acids [Fish Oil] 1,200 mg PO DAILY 03/26/16 Sotalol HCl [Betapace -] 40 mg PO BID 03/26/16 Warfarin Na [Coumadin -] 3 mg PO HS 03/26/16 Aspirin [ASA -] 81 mg PO DAILY tab.chew 05/12/18 Furosemide [Lasix -] 40 mg PO DAILY tablet 05/12/18 Warfarin Na [Coumadin -] 3 mg PO DAILY@1800 tablet 05/12/18 predniSONE [Deltasone -] 10 mg PO DAILY #20 tablet 05/12/18 Physical Examination Vital Signs: Vital Signs Temperature 97.4 F L 02/01/19 00:10 Pulse Rate 62 02/01/19 04:00 Respiratory Rate 18 02/01/19 04:56 Blood Pressure 135/81 02/01/19 04:00 O2 Sat by Pulse Oximetry (%) 97 02/01/19 04:56 Labs: CBC, BMP 02/01/19 05:40 02/01/19 05:40
[2019-02-01] MEDS ORDERED: WARFARIN NA 3 MG TABLET PO SCH (18:00)
[2019-02-01] MEDS: FENOFIBRIC ACID 135 MG CAP PO SCH (18:25)
[2019-02-01] MEDS ORDERED: APIXABAN 5 MG TABLET PO ONE (19:00)
[2019-02-01] MEDS ORDERED: INSULIN SLIDING SCALE (NOVOLOG) 1 VIAL SQ SCH (22:00)
[2019-02-01] MEDS: APIXABAN 5 MG TABLET PO SCH (22:15)
[2019-02-01] MEDS ORDERED: MIRTAZAPINE 15 MG TABLET (FP) ONE (22:17)
[2019-02-01] MEDS: MIRTAZAPINE 30 MG TABLET (FP) PO SCH (22:24)
[2019-02-01] MEDS: ATORVASTATIN CA 40 MG TABLET (FP) PO SCH (22:24)
[2019-02-01] MEDS: INSULIN SLIDING SCALE (NOVOLOG) 1 VIAL SQ SCH (22:25)
[2019-02-02 06:39] LABS: ALBUMIN 3.5 g/dl (3.4-5.0); ALK PHOS 36 U/L (45-117); ANION GAP 5 MMOL/L (8-16); BILIRUBIN,TOTAL 0.4 mg/dL (0.2-1); BLOOD UREA NITROGEN 19.6 mg/dL (7-18); CHLORIDE 109 mmol/L (98-107); CO2 27 mmol/L (21-32); CREATININE 0.9 mg/dL (0.55-1.3); GLUCOSE,RANDOM 173 mg/dL (74-106); POTASSIUM 3.9 mmol/L (3.5-5.1); SGOT/AST 21 U/L (15-37); SGPT/ALT 27 U/L (13-61); SODIUM 141 mmol/L (136-145); TOT PROT 6.3 g/dl (6.4-8.2)
[2019-02-02 06:41] LABS: BASO % 0.6 % (0-2.0); EOS % 2.4 % (0-4.5); HEMATOCRIT 34.7 % (35.4-49); HEMOGLOBIN 11.7 GM/dL (11.7-16.9); LYMPH % 15.5 % (8-40); MCH 31.3 pg (25.7-33.7); MCHC 33.7 g/dl (32.0-35.9); MEAN CELL VOLUME 92.8 fl (80-96); MEAN PLT VOLUME 9.6 fl (7.5-11.1); MONO % 11.7 % (3.8-10.2); NEUT % 69.8 % (42.8-82.8); PLATELET COUNT 149 K/MM3 (134-434); RBC 3.74 M/mm3 (4.00-5.60); RDW 14.9 % (11.9-15.9); WHITE BLOOD COUNT 4.9 K/mm3 (4.0-10.0)
[2019-02-02] MEDS: INSULIN SLIDING SCALE (NOVOLOG) 1 VIAL SQ SCH ×4 (06:50→22:15)
[2019-02-02] MEDS: metFORMIN HCL 500 MG TABLET (FP) PO SCH ×2 (06:50→16:24)
[2019-02-02] MEDS ORDERED: REGADENOSON 0.4 MG/5 ML PRE-FILLED SYRINGE IVPUSH ONE ×2 (09:45→10:20)
--- NOTE | 2019-02-02 10:43 | PN ---
Progress Note (short form) - Note Progress Note: s: no further chest pain. no dyspnea, palps, dizziness, edema Current Medications Allopurinol (Zyloprim -) 100 mg PO BID [facility] Last Admin: 02/01/19 22:24 Dose: 100 mg Apixaban (Eliquis -) 5 mg PO BID [facility] Last Admin: 02/01/19 22:15 Dose: Not Given Aspirin (Asa -) 81 mg PO DAILY [facility] Last Admin: 02/01/19 09:58 Dose: 81 mg Atorvastatin Calcium (Lipitor -) 40 mg PO HS [facility] Last Admin: 02/01/19 22:24 Dose: 40 mg Fenofibric Acid (Trilipix -) 135 mg PO DAILY [facility] Last Admin: 02/01/19 18:25 Dose: 135 mg Insulin Aspart (Novolog Vial Sliding Scale -) 1 vial SQ [facility]; Protocol Last Admin: 02/02/19 06:50 Dose: Not Given Metformin HCl (Glucophage -) 1,000 mg PO BID@0700,1630 [facility] Last Admin: 02/02/19 06:50 Dose: Not Given Metoclopramide HCl (Reglan -) 5 mg PO DAILY PRN PRN Reason: n/v Mirtazapine (Remeron -) 30 mg PO [facility] Last Admin: 02/01/19 22:24 Dose: 30 mg Multivitamins/Minerals/Vitamin C (Tab-A-Vit -) 1 tab PO DAILY [facility] Last Admin: 02/01/19 09:59 Dose: 1 tab Phenytoin Sodium (Dilantin -) 100 mg PO BID [facility] Last Admin: 02/01/19 22:26 Dose: 100 mg Ramipril (Altace -) 2.5 mg PO DAILY [facility] Last Admin: 02/01/19 09:58 Dose: 2.5 mg Sitagliptin Phosphate (Januvia -) 100 mg PO DAILY@0700 [facility] Last Admin: 02/02/19 06:50 Dose: Not Given Sotalol HCl (Betapace -) 40 mg PO BID [facility] Last Admin: 02/01/19 22:26 Dose: 40 mg Tamsulosin HCl (Flomax -) 0.4 mg PO DAILY@0830 [facility] Last Admin: 02/01/19 08:56 Dose: 0.4 mg Vital Signs Period Temp Pulse Resp BP Sys/Andrews Pulse Ox Last 24 Hr 98 F-98.2 F 65-80 18-18 110-132/65-92 97 Constitutional: Yes: Well Nourished, No Distress, Calm Eyes: Yes: Conjunctiva Clear, EOM Intact HENT: Yes: Atraumatic, Normocephalic Neck: Yes: Supple, Trachea Midline Respiratory: Yes: Regular, CTA Bilaterally Gastrointestinal: Yes: Normal Bowel Sounds, Soft Cardiovascular: Yes: Pulse Irregular JVD: No Carotid Bruit: No PMI: Non-Displaced Heart Sounds: Yes: S1, S2 Musculoskeletal: No: Back Pain Extremities: No: Cold Edema: No Peripheral Pulses WNL: Yes Peripheral Pulses: 2+ Left Doralis Pedis, 2+ Right Dorsalis Pedis Integumentary: No: Jaundice Neurological: Yes: Alert, Oriented Psychiatric: No: Agitated Assessment/Plan EKG: afib, RBBB CXR: no acute process echo 01/2019 nl LV, RV, function mild pulm HTN tele: afib, rate controlled Chest/jaw pain, CAD, s/p [place], CABG - trop neg x 2, EKG no ischemic changes - echo nl LV function - given history of CAD/stents with sensation similar to prior angina, nuc stress today - monitoring on tele - continue aspirin, statin - if benign findings on stress, dc home with follow up with Dr. Lynn afib - rate controlled - continue warfarin, sotalol HLD - cont statin DM - manage per primary
[2019-02-02] MEDS ORDERED: PT OWN MED DRAWER 7, Y5N ONE ×2 (11:59→22:04)
[2019-02-02] MEDS: ALLOPURINOL 100 MG TABLET (FP) PO SCH ×2 (12:09→22:07)
[2019-02-02] MEDS: RAMIPRIL 2.5 MG CAPSULE (FP) PO SCH (12:10)
[2019-02-02] MEDS: TAMSULOSIN HCL 0.4 MG CAP PO SCH (12:10)
[2019-02-02] MEDS: PHENYTOIN NA EXTENDED 100 MG CAPSULE (FP) PO SCH ×2 (12:10→22:07)
[2019-02-02] MEDS: ASPIRIN 81 MG CHEWABLE TABLETS PO SCH (12:10)
[2019-02-02] MEDS: APIXABAN 5 MG TABLET PO SCH ×2 (12:10→22:07)
[2019-02-02] MEDS: FENOFIBRIC ACID 135 MG CAP PO SCH (12:11)
[2019-02-02] MEDS: MULTIVITAMINS (DAILY MVI) TABLET (FP) PO SCH (12:11)
[2019-02-02] MEDS: SOTALOL HCL 80 MG TABLET (FP) PO SCH ×2 (15:23→22:08)
[2019-02-02] MEDS: MIRTAZAPINE 30 MG TABLET (FP) PO SCH (22:07)
[2019-02-02] MEDS: ATORVASTATIN CA 40 MG TABLET (FP) PO SCH (22:07)
--- NOTE | 2019-02-02 23:25 | PN ---
Progress Note, Physician - Current Medication List Current Medications: Active Medications Allopurinol (Zyloprim -) 100 mg PO BID [facility] Last Admin: 02/02/19 22:07 Dose: 100 mg Apixaban (Eliquis -) 5 mg PO BID [facility] Last Admin: 02/02/19 22:07 Dose: 5 mg Aspirin (Asa -) 81 mg PO DAILY [facility] Last Admin: 02/02/19 12:10 Dose: 81 mg Atorvastatin Calcium (Lipitor -) 40 mg PO HS [facility] Last Admin: 02/02/19 22:07 Dose: 40 mg Fenofibric Acid (Trilipix -) 135 mg PO DAILY [facility] Last Admin: 02/02/19 12:11 Dose: 135 mg Insulin Aspart (Novolog Vial Sliding Scale -) 1 vial SQ [facility]; Protocol Last Admin: 02/02/19 22:15 Dose: 4 units Metformin HCl (Glucophage -) 1,000 mg PO BID@0700,1630 [facility] Last Admin: 02/02/19 16:24 Dose: 1,000 mg Metoclopramide HCl (Reglan -) 5 mg PO DAILY PRN PRN Reason: n/v Mirtazapine (Remeron -) 30 mg PO [facility] Last Admin: 02/02/19 22:07 Dose: 30 mg Multivitamins/Minerals/Vitamin C (Tab-A-Vit -) 1 tab PO DAILY [facility] Last Admin: 02/02/19 12:11 Dose: 1 tab Phenytoin Sodium (Dilantin -) 100 mg PO BID [facility] Last Admin: 02/02/19 22:07 Dose: 100 mg Ramipril (Altace -) 2.5 mg PO DAILY [facility] Last Admin: 02/02/19 12:10 Dose: 2.5 mg Sitagliptin Phosphate (Januvia -) 100 mg PO DAILY@0700 [facility] Last Admin: 02/02/19 06:50 Dose: Not Given Sotalol HCl (Betapace -) 40 mg PO BID [facility] Last Admin: 02/02/19 22:08 Dose: 40 mg Tamsulosin HCl (Flomax -) 0.4 mg PO DAILY@0830 [facility] Last Admin: 02/02/19 12:10 Dose: 0.4 mg - Objective Vital Signs: Vital Signs Temperature 98.3 F 02/02/19 14:00 Pulse Rate 80 02/02/19 14:00 Respiratory Rate 18 02/02/19 18:00 Blood Pressure 113/69 02/02/19 18:00 O2 Sat by Pulse Oximetry (%) 98 02/02/19 10:00 Labs: CBC, BMP 02/02/19 06:00 02/02/19 06:00 INR, PTT INR 1.61 (0.83-1.09) H 02/01/19 05:40 Problem List - Problems (1) Afib Code(s): I48.91 - UNSPECIFIED ATRIAL FIBRILLATION Qualifiers: Atrial fibrillation type: chronic Qualified Code(s): I48.2 - Chronic atrial fibrillation (2) Chest pain Code(s): R07.9 - CHEST PAIN, UNSPECIFIED Qualifiers: Chest pain type: unspecified Qualified Code(s): R07.9 - Chest pain, unspecified (3) Diabetes Code(s): E11.9 - TYPE 2 DIABETES MELLITUS WITHOUT COMPLICATIONS Qualifiers: Diabetes mellitus type: type 2 Diabetes mellitus complication status: without complication (4) HTN (hypertension) Code(s): I10 - ESSENTIAL (PRIMARY) HYPERTENSION (5) Hx of CABG Code(s): Z95.1 - PRESENCE OF AORTOCORONARY BYPASS GRAFT (6) Hyperlipidemia Code(s): E78.5 - HYPERLIPIDEMIA, UNSPECIFIED (7) Lung cancer Code(s): C34.90 - MALIGNANT NEOPLASM OF UNSP PART OF UNSP BRONCHUS OR LUNG (8) Paroxysmal a-fib Code(s): I48.0 - PAROXYSMAL ATRIAL FIBRILLATION (9) Seizure Code(s): R56.9 - UNSPECIFIED CONVULSIONS
[2019-02-03] MEDS ORDERED: PT OWN MED DRAWER 7, Y5N ONE ×2 (06:31→09:33)
[2019-02-03] MEDS: metFORMIN HCL 500 MG TABLET (FP) PO SCH (06:34)
[2019-02-03] MEDS: INSULIN SLIDING SCALE (NOVOLOG) 1 VIAL SQ SCH ×2 (06:36→11:37)
[2019-02-03 06:52] VITALS: TEMP 97.6
[2019-02-03 08:30] VITALS: PULSE 70
[2019-02-03] MEDS: TAMSULOSIN HCL 0.4 MG CAP PO SCH (08:32)
[2019-02-03] MEDS: SOTALOL HCL 80 MG TABLET (FP) PO SCH (09:34)
[2019-02-03] MEDS: RAMIPRIL 2.5 MG CAPSULE (FP) PO SCH (09:34)
[2019-02-03] MEDS: ASPIRIN 81 MG CHEWABLE TABLETS PO SCH (09:34)
[2019-02-03] MEDS: PHENYTOIN NA EXTENDED 100 MG CAPSULE (FP) PO SCH (09:34)
[2019-02-03] MEDS: APIXABAN 5 MG TABLET PO SCH (09:35)
[2019-02-03] MEDS: FENOFIBRIC ACID 135 MG CAP PO SCH (09:35)
[2019-02-03] MEDS: ALLOPURINOL 100 MG TABLET (FP) PO SCH (09:35)
[2019-02-03] MEDS: MULTIVITAMINS (DAILY MVI) TABLET (FP) PO SCH (09:35)
--- NOTE | 2019-02-03 09:55 | PN ---
Progress Note (short form) - Note Progress Note: s: no further chest pain. no dyspnea, palps, dizziness, edema Current Medications Generic Name Dose Route Start Last Admin Trade Name Salvatoreq PRN Reason Stop Dose Admin Allopurinol 100 mg 02/01/19 10:00 02/03/19 09:35 Zyloprim - PO 100 mg BID [facility] Administration Aspirin 81 mg 02/01/19 10:00 02/03/19 09:34 Asa - PO 81 mg DAILY [facility] Administration Atorvastatin Calcium 40 mg 02/01/19 22:00 02/02/19 22:07 Lipitor - PO 40 mg HS [facility] Administration Fenofibric Acid 135 mg 02/01/19 10:00 02/03/19 09:35 Trilipix - PO 135 mg DAILY [facility] Administration Insulin Aspart 1 vial 02/01/19 22:00 02/03/19 06:36 Novolog Vial Sliding Scale - SQ Not Given [facility] Protocol Metformin HCl 1,000 mg 02/02/19 07:00 02/03/19 06:34 Glucophage - PO 1,000 mg BID@0700,1630 [facility] Administration Metoclopramide HCl 5 mg 01/31/19 23:03 Reglan - PO DAILY PRN n/v Mirtazapine 30 mg 02/01/19 22:00 02/02/19 22:07 Remeron - PO 30 mg HS [facility] Administration Multivitamins/Minerals/Vitamin C 1 tab 02/01/19 10:00 02/03/19 09:35 Tab-A-Vit - PO 1 tab DAILY [facility] Administration Phenytoin Sodium 100 mg 01/31/19 23:15 02/03/19 09:34 Dilantin - PO 100 mg BID [facility] Administration Ramipril 2.5 mg 02/01/19 10:00 02/03/19 09:34 Altace - PO 2.5 mg DAILY [facility] Administration Sitagliptin Phosphate 100 mg 02/02/19 07:00 02/03/19 06:34 Januvia - PO 100 mg DAILY@0700 [facility] Administration Sotalol HCl 40 mg 01/31/19 23:15 02/03/19 09:34 Betapace - PO 40 mg BID [facility] Administration Tamsulosin HCl 0.4 mg 02/01/19 08:30 02/03/19 08:32 Flomax - PO 0.4 mg DAILY@0830 [facility] Administration Vital Signs Period Temp Pulse Resp BP Sys/Andrews Pulse Ox Last 24 Hr 97.6 F-98.4 F 57-80 15-19 110-133/65-86 98-98 Constitutional: Yes: Well Nourished, No Distress, Calm Eyes: Yes: Conjunctiva Clear Neck: Yes: Supple, Trachea Midline Respiratory: Yes: Regular, CTA Bilaterally Gastrointestinal: Yes: Normal Bowel Sounds, Soft Cardiovascular: Yes: Pulse Irregular JVD: No Heart Sounds: Yes: S1, S2 Musculoskeletal: No: Back Pain Extremities: No: Cold Edema: No Peripheral Pulses: 2+ Left Doralis Pedis, 2+ Right Dorsalis Pedis Integumentary: No: Jaundice Neurological: Yes: Alert, Oriented Psychiatric: No: Agitated CBC, BMP 02/02/19 06:00 02/02/19 06:00 Assessment/Plan EKG: afib, RBBB CXR: no acute process echo 01/2019 nl LV, RV, function mild pulm HTN tele: afib, rate controlled Chest/jaw pain, CAD, s/p [place], CABG - trop neg x 2, EKG no ischemic changes, no signs acs - echo nl LV function - given history of CAD/stents with sensation similar to prior angina, nuc stress today-->results show mod lateral and apical ischemia. D/w interventionalist and pt will go to [place] today for cath tomorrow. Hold eliquis for now. - monitoring on tele - continue aspirin, statin afib - rate controlled on sotalol - on eliquis HLD - cont statin DM - manage per primary
[2019-02-03 14:53] VITALS: BP 108/64
== END 2019-02-03 15:40 | disposition short-term general hospital (02) | DRG 303 ==
LOC: JER 14:45 → JERBED 19:42 → J2W 23:01
PROVIDERS: ADMIT Internal Medicine; ATTEND Internal Medicine
DX: I25.119 Atherosclerotic heart disease of native coronary artery with unspecified angina pectoris (principal); I24.9 Acute ischemic heart disease, unspecified; Z95.5 Presence of coronary angioplasty implant and graft; R07.9 Chest pain, unspecified; I45.10 Unspecified right bundle-branch block; I27.20 Pulmonary hypertension, unspecified; I48.91 Unspecified atrial fibrillation; E78.5 Hyperlipidemia, unspecified; E11.9 Type 2 diabetes mellitus without complications; Z85.118 Personal history of other malignant neoplasm of bronchus and lung; Z90.2 Acquired absence of lung [part of]; Z79.01 Long term (current) use of anticoagulants; Z87.891 Personal history of nicotine dependence; Z79.4 Long term (current) use of insulin; Z86.73 Personal history of transient ischemic attack (TIA), and cerebral infarction without residual deficits; I25.2 Old myocardial infarction; J44.9 Chronic obstructive pulmonary disease, unspecified; F41.9 Anxiety disorder, unspecified; M54.5 Low back pain; G89.29 Other chronic pain; M10.9 Gout, unspecified
CPT/HCPCS: 36415; 71045-TC-FY; 78452-TC; 80053; 82550; 82962; 83880; 84484; 85025; 85610; 93005; 93010; 93017; 93306-TC; 97116-GP; 97161-GP; 99283-25; A9502; J2785

== ENCOUNTER 2020-01-20 10:51 | Emergency (ER) | payer OTHER, BC ==
[2020-01-20 11:11] VITALS: TEMP 98; BMI 27.6
--- NOTE | 2020-01-20 11:20 | PDOC ---
History of Present Illness - General Chief Complaint: Chest Pain Stated Complaint: Pain Time Seen by Provider: 01/20/20 11:00 - History of Present Illness Initial Comments: 01/20/20 11:21 74 year old man with a hx of Lung Ca in remission s/p Chemo-RT and lobectomy, pAF on Eliquis, HTN, CHF, CAD s/p CABG and 7 stents, IDDM, COPD, nonfunctional right kidney, and left kidney 9mm stone with stent presents with "diaphragm pain radiating to the bilateral sides" on and off for 4 days and travellling to his "ribs" He was told he had a K of 6.1 and to come to the ER, procedure was moved due to this. He has no other complaints. ROS GENERAL/CONSTITUTIONAL: No fever or chills. No weakness. HEAD, EYES, EARS, NOSE AND THROAT: No change in vision. No ear pain or discharge. No sore throat. CARDIOVASCULAR: No chest pain or shortness of breath RESPIRATORY: No cough, wheezing, or hemoptysis. GASTROINTESTINAL: No nausea, vomiting, diarrhea or constipation. GENITOURINARY: No dysuria, frequency, or change in urination. MUSCULOSKELETAL: No joint or muscle swelling or pain. No neck or back pain. SKIN: No rash NEUROLOGIC: No headache, vertigo, loss of consciousness, or change in strength/sensation. ENDOCRINE: No increased thirst. No abnormal weight change HEMATOLOGIC/LYMPHATIC: No anemia, easy bleeding, or history of blood clots. ALLERGIC/IMMUNOLOGIC: No hives or skin allergy. PE GENERAL: Awake, alert, and fully oriented, in no acute distress HEAD: No signs of trauma, normocephalic, atraumatic EYES: EOMI, sclera anicteric, conjunctiva clear ENT: oropharynx clear without exudates. Moist mucosa NECK: Normal ROM, supple LUNGS: No distress, speaks full sentences, clear to auscultation bilaterally HEART: Regular rate and rhythm, normal S1 and S2, no murmurs, rubs or gallops, peripheral pulses normal and equal bilaterally. ABDOMEN: Soft, nontender. No guarding, no rebound. No masses EXTREMITIES : Normal inspection, Normal range of motion, no edema. No clubbing or cyanosis. NEUROLOGICAL: Cranial nerves II through XII grossly intact. Normal speech, no focal sensorimotor deficits SKIN: Warm, Dry, normal turgor, no rashes or lesions noted Assessment and Plan 74 year old man with a hx of Lung Ca in remission s/p Chemo-RT and lobectomy, pAF on Eliquis, HTN, CHF, CAD s/p CABG and 7 stents, IDDM, COPD, nonfunctional right kidney, and left kidney 9mm stone with stent presents with "diaphragm pain radiating to the bilateral sides" on and off for 4 days and travellling to his "ribs". Consider GERD vs gas vs stent complication, r/o acs labs wnl K normal, likely prior lab was hemolyzed CT abd pelvis: interval development of L hydronephrosis, movement of calculi distally Findings discussed with Dr. Baldwin, will follow pt oupt. Strct return precautions and discharge instructions provided Taylor Saenz PGY2 Emergency Medicine 02/08/20 14:43 Past History - Medical History Allergies/Adverse Reactions: Allergies Allergy/AdvReac Type Severity Reaction Status Date / Time sulfite Allergy Severe Difficulty Verified 01/20/20 11:19 Breathing Penicillins Allergy Intermediate Swelling Verified 01/20/20 11:19 Home Medications: Ambulatory Orders Mirtazapine [Remeron -] 30 mg PO HS #30 tablet 02/17/16 Tamsulosin HCl [Flomax -] 0.4 mg PO DAILY #30 cap.er.24h 02/17/16 Insulin Detemir [Levemir Flextouch] 5 unit SQ HS PRN 03/26/16 Allopurinol [Zyloprim -] 100 mg PO BID 11/04/19 Atorvastatin Ca [Lipitor] 40 mg PO HS 11/04/19 Isosorbide Mononitrate [Isosorbide Mononitrate ER] 30 mg PO DAILY 11/04/19 Levetiracetam 500 mg PO BID 11/04/19 Metoclopramide HCl [Metoclopramide HCl Odt] 5 mg PO BID 11/04/19 Oxybutynin Chloride [Ditropan Xl] 10 mg PO DAILY 11/04/19 Ramipril 2.5 mg PO DAILY 11/04/19 Sotalol HCl [Betapace AF] 60 mg PO BID 11/04/19 Apixaban [Eliquis] 5 mg PO BID 11/26/19 Fenofibrate,Micronized [Fenofibrate] 134 mg PO DAILY 11/26/19 Furosemide [Lasix] 20 mg PO DAILY 11/26/19 Anemia: No Asthma: Yes Cancer: Yes (left - lower left lobe removed) Cardiac Disorders: Yes (afib) CVA: Yes (probable TIAs) COPD: No CHF: No Dementia: No Diabetes: Yes GI Disorders: No Disorders: Yes (1 kidney, kidney stones 2007, BPH) HTN: Yes Hypercholesterolemia: Yes Kidney Stones: Yes (2 stents in 03/2016 , Stents 2 weeks ago) Liver Disease: No Seizures: Yes Thyroid Disease: No - Surgical History Abdominal Surgery: No Appendectomy: No Cardiac Surgery: Yes (CABG stent x 4 2008) Cholecystectomy: No Lung Surgery: Yes (lt lower lobe) Neurologic Surgery: No Orthopedic Surgery: No - Immunization History Td Vaccination: No TDAP Vaccination: No Immunization Up to Date: Yes - Psycho-Social/Smoking History Smoking Status: Yes Smoking History: Former smoker Have you smoked in the past 12 months: No Number of Cigarettes Smoked Daily: 0 If you are a former smoker, when did you quit?: 30 years prior Information on smoking cessation initiated: No 'Breaking Loose' booklet given: 11/02/19 - Substance Abuse Hx (Audit-C & DAST Scrn) How often the patient has a drink containing alcohol: Never Score: In Men: 4 or > Positive; In Women: 3 or > Positive: 0 Screen Result (Pos requires Nsg. Audit-10AR): Negative In the last yr the pt used illegal drug/Rx for NonMed reason: No Score: Yes response is considered Positive: 0 Screen Result (Positive result requires Nsg. DAST-10): Negative *Physical Exam - Vital Signs Last Vital Signs Temp Pulse Resp BP Pulse Ox 98.0 F 67 16 139/97 99 01/20/20 10:51 01/20/20 10:51 01/20/20 10:51 01/20/20 10:51 01/20/20 10:51 ED Treatment Course - LABORATORY CBC & Chemistry Diagram: 01/20/20 11:25 01/20/20 11:25 Discharge - Discharge Information Problems reviewed: Yes Clinical Impression/Diagnosis: Nephrolithiasis Condition: Stable Disposition: HOME - Admission No - Follow up/Referral Referrals: Bronson Yung MD [Primary Care Provider] - Luzma Pizano DO [Staff Physician] - - Patient Discharge Instructions Patient Printed Discharge Instructions: Kidney Stones -- Adult Additional Instructions: You were seen in the ER for abdominal pain Your labwork and imaging were within normal You have some changes on your CT and you have a referral to GI specialty for further follow up These findings were discussed with Dr. Baldwin and he was made aware. Please follow with your PCP and you specialists within 1 week. Please return to the ER if you develop worsening abdominal pain, chest pain, shortness of breath or any other concerning symptoms. - Post Discharge Activity
[2020-01-20 11:35] LABS: EOS % 2.2 % (0-4.5); HEMATOCRIT 32.3 % (35.4-49); HEMOGLOBIN 10.5 GM/dL (11.7-16.9); LYMPH % 14.5 % (8-40); MCH 30.6 pg (25.7-33.7); MCHC 32.5 g/dl (32.0-35.9); MEAN CELL VOLUME 94.1 fl (80-96); MEAN PLT VOLUME 9.1 fl (7.5-11.1); MONO % 10.5 % (3.8-10.2); NEUT % 71.8 % (42.8-82.8); PLATELET COUNT 234 K/MM3 (134-434); RBC 3.44 M/mm3 (4.00-5.60); RDW 15.5 % (11.9-15.9); WHITE BLOOD COUNT 5.6 K/mm3 (4.0-10.0)
[2020-01-20 11:44] LABS: INR 1.67 (0.83-1.09); PROTHROMBIN TIME (PATIENT) 19.8 SEC (9.7-13.0)
[2020-01-20 11:47] LABS: ACTIVATED PTT 40.2 SECONDS (25.2-36.5)
[2020-01-20 12:05] LABS: ALBUMIN 3.5 g/dl (3.4-5.0); ALK PHOS 36 U/L (45-117); ANION GAP 5 MMOL/L (8-16); BILIRUBIN,TOTAL 0.5 mg/dL (0.2-1); BLOOD UREA NITROGEN 22.7 mg/dL (7-18); CALCIUM 9.5 mg/dL (8.5-10.1); CHLORIDE 105 mmol/L (98-107); CO2 28 mmol/L (21-32); CREATININE 1.1 mg/dL (0.55-1.3); GLUCOSE,RANDOM 109 mg/dL (74-106); N-TERMINAL BNP 1773.4 pg/ml (5-450); POTASSIUM 4.1 mmol/L (3.5-5.1); SGOT/AST 29 U/L (15-37); SGPT/ALT 26 U/L (13-61); SODIUM 139 mmol/L (136-145); TOT PROT 6.7 g/dl (6.4-8.2)
--- NOTE | 2020-01-20 12:24 | PDOC ---
Documentation entered by Ai Shields SCRIBE, acting as scribe for Lory Pena MD. Lory Pena MD: This documentation has been prepared by the Cornelius livingston Xhesika, SCRIBE, under my direction and personally reviewed by me in its entirety. I confirm that the documentation accurately reflects all work, treatment, procedures, and medical decision making performed by me. Attending Attestation - Resident Resident Name: Taylor Saenz - ED Attending Attestation I have performed the following: I have examined & evaluated the patient, The case was reviewed & discussed with the resident, I agree w/resident's findings & plan, Exceptions are as noted - HPI HPI: 01/20/20 11:28 The patient is a 74 year old M with a PMH of Lung Ca (in remission s/p Chemo-RT and lobectomy), pAF (on Eliquis and Warfarin), HTN, CHF, CAD (s/p CABG and 7 stents), IDDM, COPD, nonfunctional right kidney, and left kidney stone who presents to the ED BIBA for "diaphragm" pain. Pt describes his pain as intermitt ent, with no aggravating or alleviating factors. Pt notes he is not endorsing any pain in this moment. Pt states he had outpatient pre-op labs done at his PCP office, and received a called today stating that his potassium is elevated (6.2). Reports that pain is unchanged even after passing flatus or having a BM. The patient denies chest pain, shortness of breath, headache and dizziness. Denies fever, chills, cough, nausea, vomiting, diarrhea and constipation. Denies dysuria, frequency, urgency and hematuria. Allergies: PCN and sulfite PCP: Dr. Bronson Yung - Physicial Exam PE: 01/20/20 12:19 General: well appearing HEENT: NCAT Chest: CTAB, good air entry, no wheezes rales or rhonchi CVS: + s1 s2, RRR Abdomen: soft, nt nd, no rebound, no guarding Back: no CVA tenderness - Medical Decision Making 01/20/20 12:20 74 yo M with upper abd pain/"diaphragm" pain, currently without any pain, unremarkable physical exam, doubt ACS, no RUQ tenderness to suggest acute choley, possible obstructed stent vs. kidney stones vs. gas pain vs. lower lobe PNA (although patient without any infectious complaints) vs. low suspicion for bowel obstruction vs. electrolyte abnormality. Plan: -labs -urine -cxr -pain control as needed -EKG -likely CT a/p -reassess This clinical encounter is taking place during a federal and state health care emergency attributable to the novel [place] Virus pandemic. The [place] of the Department of Health and Human Services has declared, pursuant to the Public Health Service Act 319F-3 (42 U.S.C. 247d-6d), that a covered persons activities related to medical countermeasures against COVID-19 will be immune from liability under Federal and State law. 01/20/20 17:26 Labs and imaging reviewed. Mild hydro on L. Spoke with patient's urologist who stated patient is okay for discharge. Patient still pain free. Will d/c with return precautions, recommend f/u. Discharge - Discharge Information Problems reviewed: Yes Clinical Impression/Diagnosis: Nephrolithiasis Condition: Stable Disposition: HOME - Follow up/Referral Referrals: Luzma Pizano DO [Staff Physician] - Bronson Yung MD [Primary Care Provider] - - Patient Discharge Instructions Patient Printed Discharge Instructions: Kidney Stones -- Adult Additional Instructions: You were seen in the ER for abdominal pain Your labwork and imaging were within normal You have some changes on your CT and you have a referral to GI specialty for further follow up These findings were discussed with Dr. Baldwin and he was made aware. Please follow with your PCP and you specialists within 1 week. Please return to the ER if you develop worsening abdominal pain, chest pain, shortness of breath or any other concerning symptoms. - Post Discharge Activity
[2020-01-20 12:44] LABS: LIPASE 59 U/L (73-393)
[2020-01-20 17:45] VITALS: BP 138/68; PULSE 72
--- NOTE | 2020-01-22 14:17 | EKG ---
Test Reason : Blood Pressure : / mmHG Vent. Rate : 066 BPM Atrial Rate : 059 BPM P-R Int : 000 ms QRS Dur : 150 ms QT Int : 456 ms P-R-T Axes : 000 -83 -29 degrees QTc Int : 478 ms ATRIAL FIBRILLATION LEFT AXIS DEVIATION RIGHT BUNDLE BRANCH BLOCK POSSIBLE LATERAL INFARCT , AGE UNDETERMINED ABNORMAL ECG WHEN COMPARED WITH ECG OF 26-NOV-2019 14:16, NO SIGNIFICANT CHANGE WAS FOUND Confirmed by FERNANDO CARRANZA MD ([id number]) on 01/22/2020 2:17:07 PM Referred By: Confirmed By:FERNANDO CARRANZA MD
== END 2020-01-20 17:50 | disposition home or self-care (01) ==
LOC: JER 10:51
DX: N20.0 Calculus of kidney (principal)
CPT/HCPCS: 36415; 71045-TC-FY; 74177-TC; 80053; 83690; 83880; 84484; 85025; 85610; 85730; 93005; 93010; 99285-25; Q9967

== ENCOUNTER 2020-06-26 00:18 | Observation (INO) | payer OTHER, BC ==
[2020-06-26 00:29] VITALS: BMI 24.4
[2020-06-26 01:46] LABS: HEMATOCRIT 35.8 % (35.4-49); HEMOGLOBIN 11.7 GM/dL (11.7-16.9); MCH 31.1 pg (25.7-33.7); MCHC 32.7 g/dl (32.0-35.9); MEAN CELL VOLUME 95.1 fl (80-96); MEAN PLT VOLUME 10.3 fl (7.5-11.1); PLATELET COUNT 156 K/MM3 (134-434); RBC 3.76 M/mm3 (4.00-5.60); RDW 16.2 % (11.9-15.9); WHITE BLOOD COUNT 4.4 K/mm3 (4.0-10.0)
[2020-06-26 01:58] LABS: INR 1.96 (0.83-1.09); PROTHROMBIN TIME (PATIENT) 23.6 SEC (9.7-13.0)
[2020-06-26 02:01] LABS: ACTIVATED PTT 40.3 SECONDS (25.2-36.5)
[2020-06-26 02:13] LABS: CHLORIDE 110 mmol/L (98-107); POTASSIUM 4.4 mmol/L (3.5-5.1); SODIUM 143 mmol/L (136-145)
[2020-06-26 02:15] LABS: ALBUMIN 3.3 g/dl (3.4-5.0); ANION GAP 7 MMOL/L (8-16); BLOOD UREA NITROGEN 24.8 mg/dL (7-18); CALCIUM 9.1 mg/dL (8.5-10.1); CO2 26 mmol/L (21-32); GLUCOSE,RANDOM 188 mg/dL (74-106)
[2020-06-26 02:17] LABS: SGOT/AST 20 U/L (15-37); SGPT/ALT 16 U/L (13-61)
[2020-06-26 02:18] LABS: CREATININE 1.1 mg/dL (0.55-1.3)
[2020-06-26 02:20] LABS: BILIRUBIN,TOTAL 0.6 mg/dL (0.2-1); TOT PROT 6.8 g/dl (6.4-8.2)
[2020-06-26 02:21] LABS: ALK PHOS 52 U/L (45-117)
[2020-06-26] MEDS ORDERED: TAMSULOSIN HCL 0.4 MG CAP ONE (08:33)
[2020-06-26] MEDS: TAMSULOSIN HCL 0.4 MG CAP PO SCH (08:35)
[2020-06-26] MEDS ORDERED: SOTALOL HCL 120 MG PO SCH (10:00)
[2020-06-26] MEDS ORDERED: ONDANSETRON 4 MG/2 ML VIAL IVPUSH ONE ×3 (10:56→18:00)
[2020-06-26] MEDS ORDERED: ACETAMINOPHEN 500 MG TABLET (FP) PO ONE (10:56)
[2020-06-26] MEDS: ASPIRIN COATED 81 MG TABLET.EC PO SCH (11:00)
[2020-06-26] MEDS ORDERED: ACETAMINOPHEN 325 MG TABLET (FP) PO ONE (11:00)
[2020-06-26] MEDS: APIXABAN 5 MG TABLET PO SCH ×2 (11:00→23:26)
[2020-06-26] MEDS: INSULIN SLIDING SCALE (NOVOLOG) 1 VIAL SQ SCH ×2 (11:00→17:40)
[2020-06-26] MEDS ORDERED: ONDANSETRON 4 MG/2 ML VIAL ONE ×3 (11:01→22:47)
[2020-06-26] MEDS ORDERED: RAMIPRIL 5 MG CAPSULE ONE (11:35)
[2020-06-26] MEDS ORDERED: ASPIRIN COATED 81 MG TABLET.EC ONE (11:36)
[2020-06-26] MEDS ORDERED: APIXABAN 5 MG TABLET ONE ×2 (11:36→23:09)
[2020-06-26] MEDS ORDERED: ISOSORBIDE MONONITRATE 60 MG TAB.SR.24H (FP) PO ONE (11:38)
[2020-06-26] MEDS ORDERED: levETIRAcetam 500 MG TABLET (FP) PO ONE ×2 (11:38→23:09)
[2020-06-26] MEDS ORDERED: ACETAMINOPHEN 325 MG TABLET (FP) ONE (11:40)
[2020-06-26] MEDS: RAMIPRIL 2.5 MG CAPSULE PO SCH (12:30)
[2020-06-26] MEDS: ISOSORBIDE MONONITRATE 30 MG TAB.SR.24H (FP) PO SCH (12:31)
[2020-06-26] MEDS: levETIRAcetam 500 MG TABLET (FP) PO SCH ×2 (12:32→23:26)
[2020-06-26] MEDS: ALLOPURINOL 100 MG TABLET (FP) PO SCH ×2 (12:32→23:27)
[2020-06-26] MEDS: FENOFIBRIC ACID 135 MG CAP PO SCH (12:32)
[2020-06-26] MEDS ORDERED: PANTOPRAZOLE SODIUM 40 MG VIAL IVPUSH ONE (12:51)
[2020-06-26] MEDS ORDERED: PANTOPRAZOLE SODIUM 40 MG/100 ML BAG IVPB ONE (12:56)
[2020-06-26] MEDS: metFORMIN HCL 500 MG TABLET (FP) PO SCH (16:35)
[2020-06-26] MEDS ORDERED: ACETAMINOPHEN 1000 MG/100 ML VIAL (NON FORMULARY) IVPB ONE (18:00)
[2020-06-26] MEDS ORDERED: ACETAMINOPHEN INJECTION 100 ML IVPB ONE (18:03)
[2020-06-26] MEDS ORDERED: ACETAMINOPHEN 1000 MG/100 ML VIAL (NON FORMULARY) IVPB PRN (20:10)
[2020-06-26] MEDS ORDERED: ONDANSETRON 4 MG/2 ML VIAL IVPB STA (22:07)
[2020-06-26] MEDS ORDERED: MIRTAZAPINE 15 MG TABLET (FP) ONE (23:09)
[2020-06-26] MEDS ORDERED: ATORVASTATIN CA 40 MG TABLET (FP) ONE (23:09)
[2020-06-26] MEDS: ATORVASTATIN CA 40 MG TABLET (FP) PO SCH (23:26)
[2020-06-26] MEDS: MIRTAZAPINE 30 MG TABLET PO SCH (23:27)
[2020-06-27] MEDS ORDERED: ACETAMINOPHEN INJECTION 100 ML IVPB ONE (00:07)
[2020-06-27] MEDS: INSULIN SLIDING SCALE (NOVOLOG) 1 VIAL SQ SCH ×5 (00:16→21:27)
[2020-06-27] MEDS: INSULIN (LEVEMIR) 100 UNITS/ML UNITS SQ SCH ×2 (00:17→21:27)
[2020-06-27] MEDS: ACETAMINOPHEN 1000 MG/100 ML VIAL (NON FORMULARY) IVPB PRN ×3 (00:18→17:56)
[2020-06-27] MEDS: metFORMIN HCL 500 MG TABLET (FP) PO SCH ×2 (06:26→16:27)
[2020-06-27 09:03] LABS: BASO % 0.6 % (0-2.0); EOS % 2.9 % (0-4.5); HEMATOCRIT 36.1 % (35.4-49); HEMOGLOBIN 11.5 GM/dL (11.7-16.9); LYMPH % 18.2 % (8-40); MCH 30.2 pg (25.7-33.7); MCHC 31.9 g/dl (32.0-35.9); MEAN CELL VOLUME 94.7 fl (80-96); MEAN PLT VOLUME 10.2 fl (7.5-11.1); MONO % 11.5 % (3.8-10.2); NEUT % 66.8 % (42.8-82.8); PLATELET COUNT 156 K/MM3 (134-434); RBC 3.81 M/mm3 (4.00-5.60); RDW 15.9 % (11.9-15.9); WHITE BLOOD COUNT 5.4 K/mm3 (4.0-10.0)
[2020-06-27 09:19] LABS: POTASSIUM 4.2 mmol/L (3.5-5.1)
[2020-06-27] MEDS: ONDANSETRON 4 MG/2 ML VIAL IVPUSH PRN (09:28)
[2020-06-27 09:29] LABS: ALBUMIN 3.2 g/dl (3.4-5.0); CALCIUM 9.3 mg/dL (8.5-10.1)
[2020-06-27 09:30] LABS: BLOOD UREA NITROGEN 25.3 mg/dL (7-18)
[2020-06-27 09:32] LABS: BILIRUBIN,TOTAL 0.7 mg/dL (0.2-1); CREATININE 0.9 mg/dL (0.55-1.3); TOT PROT 6.3 g/dl (6.4-8.2)
[2020-06-27] MEDS: TAMSULOSIN HCL 0.4 MG CAP PO SCH (09:32)
[2020-06-27] MEDS: APIXABAN 5 MG TABLET PO SCH ×2 (10:11→21:29)
[2020-06-27] MEDS: ISOSORBIDE MONONITRATE 30 MG TAB.SR.24H (FP) PO SCH (10:11)
[2020-06-27] MEDS: FENOFIBRIC ACID 135 MG CAP PO SCH (10:11)
[2020-06-27] MEDS: RAMIPRIL 2.5 MG CAPSULE PO SCH (10:11)
[2020-06-27] MEDS: ALLOPURINOL 100 MG TABLET (FP) PO SCH ×2 (10:11→21:27)
[2020-06-27] MEDS: ASPIRIN COATED 81 MG TABLET.EC PO SCH (10:11)
[2020-06-27] MEDS: levETIRAcetam 500 MG TABLET (FP) PO SCH ×2 (10:11→21:27)
[2020-06-27] MEDS: PANTOPRAZOLE SODIUM 40 MG VIAL IVPUSH SCH (13:13)
[2020-06-27] MEDS ORDERED: INSULIN (NOVOLOG) ASPART 100 UNITS/ML 10ML VIAL ONE (20:42)
[2020-06-27] MEDS ORDERED: MIRTAZAPINE 15 MG TABLET (FP) ONE (20:42)
[2020-06-27] MEDS: ATORVASTATIN CA 40 MG TABLET (FP) PO SCH (21:27)
[2020-06-27] MEDS: MIRTAZAPINE 30 MG TABLET PO SCH (21:27)
[2020-06-28] MEDS: metFORMIN HCL 500 MG TABLET (FP) PO SCH ×2 (07:01→17:09)
[2020-06-28] MEDS: INSULIN SLIDING SCALE (NOVOLOG) 1 VIAL SQ SCH ×3 (07:02→17:09)
[2020-06-28 08:53] LABS: BASO % 0.5 % (0-2.0); HEMATOCRIT 39.8 % (35.4-49); HEMOGLOBIN 12.5 GM/dL (11.7-16.9); LYMPH % 10.1 % (8-40); MCH 30.1 pg (25.7-33.7); MCHC 31.4 g/dl (32.0-35.9); MEAN CELL VOLUME 96.1 fl (80-96); MEAN PLT VOLUME 10.2 fl (7.5-11.1); MONO % 7.8 % (3.8-10.2); NEUT % 79.6 % (42.8-82.8); PLATELET COUNT 168 K/MM3 (134-434); RBC 4.14 M/mm3 (4.00-5.60)
[2020-06-28] MEDS ORDERED: PT OWN MED DRAWER 7, Y5N ONE (09:05)
[2020-06-28] MEDS: ASPIRIN COATED 81 MG TABLET.EC PO SCH ×2 (09:08→09:27)
[2020-06-28] MEDS: TAMSULOSIN HCL 0.4 MG CAP PO SCH (09:08)
[2020-06-28] MEDS: levETIRAcetam 500 MG TABLET (FP) PO SCH ×2 (09:08→22:21)
[2020-06-28] MEDS: FENOFIBRIC ACID 135 MG CAP PO SCH (09:09)
[2020-06-28] MEDS: APIXABAN 5 MG TABLET PO SCH ×2 (09:09→22:21)
[2020-06-28] MEDS: ALLOPURINOL 100 MG TABLET (FP) PO SCH ×2 (09:09→22:25)
[2020-06-28] MEDS: ISOSORBIDE MONONITRATE 30 MG TAB.SR.24H (FP) PO SCH (09:09)
[2020-06-28] MEDS: RAMIPRIL 2.5 MG CAPSULE PO SCH (09:09)
[2020-06-28 09:10] LABS: CHLORIDE 107 mmol/L (98-107); POTASSIUM 4.2 mmol/L (3.5-5.1); SODIUM 145 mmol/L (136-145)
[2020-06-28] MEDS: ONDANSETRON 4 MG/2 ML VIAL IVPUSH PRN (09:10)
[2020-06-28] MEDS: PANTOPRAZOLE SODIUM 40 MG VIAL IVPUSH SCH (09:10)
[2020-06-28 09:19] LABS: ALBUMIN 3.5 g/dl (3.4-5.0); ANION GAP 10 MMOL/L (8-16); CALCIUM 9.9 mg/dL (8.5-10.1); CO2 28 mmol/L (21-32)
[2020-06-28 09:20] LABS: BLOOD UREA NITROGEN 25.1 mg/dL (7-18); GLUCOSE,RANDOM 97 mg/dL (74-106); LIPASE 54 U/L (73-393)
[2020-06-28 09:22] LABS: AMYLASE 12 U/L (25-115)
[2020-06-28 09:23] LABS: CREATININE 0.9 mg/dL (0.55-1.3); SGOT/AST 22 U/L (15-37); SGPT/ALT 16 U/L (13-61)
[2020-06-28 09:24] LABS: BILIRUBIN,TOTAL 0.9 mg/dL (0.2-1); TOT PROT 6.9 g/dl (6.4-8.2)
[2020-06-28 09:26] LABS: ALK PHOS 53 U/L (45-117)
[2020-06-28] MEDS ORDERED: INSULIN (NOVOLOG) ASPART 100 UNITS/ML 10ML VIAL ONE ×2 (11:35→22:04)
[2020-06-28] MEDS: SODIUM CHLORIDE 0.45% 1,000 ML IV SCH (14:50)
[2020-06-28] MEDS ORDERED: MAGNESIUM CITRATE 300 ML BOTTLE PO ONE (15:30)
[2020-06-28] MEDS ORDERED: MIRTAZAPINE 15 MG TABLET (FP) ONE (22:02)
[2020-06-28] MEDS: INSULIN (LEVEMIR) 100 UNITS/ML UNITS SQ SCH (22:22)
[2020-06-28] MEDS: ATORVASTATIN CA 40 MG TABLET (FP) PO SCH (22:25)
[2020-06-28] MEDS: MIRTAZAPINE 30 MG TABLET PO SCH (22:25)
[2020-06-29] MEDS: INSULIN SLIDING SCALE (NOVOLOG) 1 VIAL SQ SCH ×5 (00:18→23:56)
[2020-06-29] MEDS: SODIUM CHLORIDE 0.45% 1,000 ML IV SCH (03:47)
[2020-06-29] MEDS: metFORMIN HCL 500 MG TABLET (FP) PO SCH ×2 (06:21→17:43)
[2020-06-29] MEDS: TAMSULOSIN HCL 0.4 MG CAP PO SCH (08:40)
[2020-06-29] MEDS ORDERED: PT OWN MED DRAWER 7, Y5N ONE (09:57)
[2020-06-29] MEDS: RAMIPRIL 2.5 MG CAPSULE PO SCH (10:31)
[2020-06-29] MEDS: FENOFIBRIC ACID 135 MG CAP PO SCH (10:31)
[2020-06-29] MEDS: ASPIRIN COATED 81 MG TABLET.EC PO SCH (10:31)
[2020-06-29] MEDS: ALLOPURINOL 100 MG TABLET (FP) PO SCH ×2 (10:31→21:50)
[2020-06-29] MEDS: PANTOPRAZOLE SODIUM 40 MG VIAL IVPUSH SCH (10:31)
[2020-06-29] MEDS: ISOSORBIDE MONONITRATE 30 MG TAB.SR.24H (FP) PO SCH (10:31)
[2020-06-29] MEDS: levETIRAcetam 500 MG TABLET (FP) PO SCH ×2 (10:31→21:50)
[2020-06-29] MEDS: APIXABAN 5 MG TABLET PO SCH ×2 (10:31→21:50)
[2020-06-29] MEDS: POLYETHYLENE GLYCOL 3350 119 GM BTL PO SCH ×2 (10:32→21:52)
[2020-06-29] MEDS ORDERED: MIRTAZAPINE 15 MG TABLET (FP) ONE (21:05)
[2020-06-29] MEDS: ATORVASTATIN CA 40 MG TABLET (FP) PO SCH (21:50)
[2020-06-29] MEDS: INSULIN (LEVEMIR) 100 UNITS/ML UNITS SQ SCH (21:50)
[2020-06-29] MEDS: MIRTAZAPINE 30 MG TABLET PO SCH (21:51)
[2020-06-30] MEDS: metFORMIN HCL 500 MG TABLET (FP) PO SCH ×2 (06:31→16:52)
[2020-06-30] MEDS: INSULIN SLIDING SCALE (NOVOLOG) 1 VIAL SQ SCH ×4 (08:32→22:23)
[2020-06-30] MEDS ORDERED: PT OWN MED DRAWER 7, Y5N ONE ×2 (10:31→22:26)
[2020-06-30] MEDS: ALLOPURINOL 100 MG TABLET (FP) PO SCH ×2 (10:35→22:24)
[2020-06-30] MEDS: ASPIRIN COATED 81 MG TABLET.EC PO SCH (10:35)
[2020-06-30] MEDS: RAMIPRIL 2.5 MG CAPSULE PO SCH (10:35)
[2020-06-30] MEDS: FENOFIBRIC ACID 135 MG CAP PO SCH (10:35)
[2020-06-30] MEDS: PANTOPRAZOLE SODIUM 40 MG VIAL IVPUSH SCH (10:36)
[2020-06-30] MEDS: ISOSORBIDE MONONITRATE 30 MG TAB.SR.24H (FP) PO SCH (10:36)
[2020-06-30] MEDS: TAMSULOSIN HCL 0.4 MG CAP PO SCH (10:36)
[2020-06-30] MEDS: APIXABAN 5 MG TABLET PO SCH ×2 (10:36→22:24)
[2020-06-30] MEDS: levETIRAcetam 500 MG TABLET (FP) PO SCH ×2 (10:36→22:24)
[2020-06-30] MEDS: POLYETHYLENE GLYCOL 3350 119 GM BTL PO SCH ×2 (10:36→22:23)
[2020-06-30] MEDS: SODIUM CHLORIDE 0.45% 1,000 ML IV SCH (16:49)
[2020-06-30] MEDS ORDERED: MIRTAZAPINE 15 MG TABLET (FP) ONE (22:13)
[2020-06-30] MEDS: ATORVASTATIN CA 40 MG TABLET (FP) PO SCH (22:24)
[2020-06-30] MEDS: INSULIN (LEVEMIR) 100 UNITS/ML UNITS SQ SCH (22:26)
[2020-06-30] MEDS: MIRTAZAPINE 30 MG TABLET PO SCH (22:26)
[2020-07-01] MEDS: SODIUM CHLORIDE 0.45% 1,000 ML IV SCH (06:44)
[2020-07-01] MEDS: metFORMIN HCL 500 MG TABLET (FP) PO SCH ×2 (06:45→17:11)
[2020-07-01] MEDS: INSULIN SLIDING SCALE (NOVOLOG) 1 VIAL SQ SCH ×3 (07:29→17:18)
[2020-07-01 08:11] VITALS: PULSE 79; TEMP 98.6
[2020-07-01] MEDS ORDERED: PT OWN MED DRAWER 7, Y5N ONE ×2 (10:17→10:23)
[2020-07-01] MEDS: levETIRAcetam 500 MG TABLET (FP) PO SCH (10:21)
[2020-07-01] MEDS: ALLOPURINOL 100 MG TABLET (FP) PO SCH (10:22)
[2020-07-01] MEDS: ISOSORBIDE MONONITRATE 30 MG TAB.SR.24H (FP) PO SCH (10:22)
[2020-07-01] MEDS: TAMSULOSIN HCL 0.4 MG CAP PO SCH (10:22)
[2020-07-01] MEDS: ASPIRIN COATED 81 MG TABLET.EC PO SCH (10:22)
[2020-07-01] MEDS: APIXABAN 5 MG TABLET PO SCH (10:22)
[2020-07-01] MEDS: POLYETHYLENE GLYCOL 3350 119 GM BTL PO SCH (10:24)
[2020-07-01] MEDS: RAMIPRIL 2.5 MG CAPSULE PO SCH (10:24)
[2020-07-01] MEDS: FENOFIBRIC ACID 135 MG CAP PO SCH (10:24)
[2020-07-01] MEDS: PANTOPRAZOLE SODIUM 40 MG VIAL IVPUSH SCH (10:43)
[2020-07-01 15:37] VITALS: BP 132/73
== END 2020-07-01 17:32 | disposition home or self-care (01) ==
LOC: JER 00:18 → JERBED 02:25 → UNDOADMOB 02:25 → INTOOBSV 08:17 → OBSVTOIN 08:17 → JERBED 10:33 → J6S 06-27 04:16
PROVIDERS: ADMIT Internal Medicine; ATTEND Internal Medicine
PROC: 3E033NZ Introduction of Analgesics, Hypnotics, Sedatives into Peripheral Vein, Percutaneous Approach (ICD-10-PCS; principal; 2020-06-26)
PROC: 3E033GC Introduction of Other Therapeutic Substance into Peripheral Vein, Percutaneous Approach (ICD-10-PCS; 2020-06-26)
PROC: 3E023GC Introduction of Other Therapeutic Substance into Muscle, Percutaneous Approach (ICD-10-PCS; 2020-06-26)
DX: I48.0 Paroxysmal atrial fibrillation (principal); E78.5 Hyperlipidemia, unspecified; I27.20 Pulmonary hypertension, unspecified; E11.9 Type 2 diabetes mellitus without complications; Z79.899 Other long term (current) drug therapy; I25.10 Atherosclerotic heart disease of native coronary artery without angina pectoris; Z95.1 Presence of aortocoronary bypass graft; I45.10 Unspecified right bundle-branch block; R10.9 Unspecified abdominal pain; Z79.01 Long term (current) use of anticoagulants; R07.9 Chest pain, unspecified; I25.2 Old myocardial infarction; Z85.118 Personal history of other malignant neoplasm of bronchus and lung; M54.5 Low back pain; Z23 Encounter for immunization; G89.29 Other chronic pain; M10.9 Gout, unspecified; J44.9 Chronic obstructive pulmonary disease, unspecified; F41.9 Anxiety disorder, unspecified; Z95.5 Presence of coronary angioplasty implant and graft; R56.9 Unspecified convulsions; Z88.0 Allergy status to penicillin; Z88.8 Allergy status to other drugs, medicaments and biological substances; J90 Pleural effusion, not elsewhere classified; K80.20 Calculus of gallbladder without cholecystitis without obstruction; K85.90 Acute pancreatitis without necrosis or infection, unspecified
CPT/HCPCS: 36415; 71045-TC-FY; 74176-TC; 74220-TC-FY; 74240-TC-FY; 80053; 82150; 82550; 82962; 83690; 84484; 85025; 85027; 85610; 85730; 93005; 93010; 96372; 96374; 96375; 96376; 99285-25; C9803; G0378; J0131; U0003